=== PATIENT | female | born 1955 | race Asian ===

== ENCOUNTER 2017-01-17 09:59 | Observation (INO) | payer OTHER ==
[~2017-01-17] VITALS: Ht 160 cm; Wt 94.6 kg
[~2017-01-17 09:59] MED LIST: ASPI-1093 PO; ATOR20TA PO; CLON0.5T PO; CYAN500T8 PO; FERR-142 PO; HYDR-3424 PO; METF1000 PO; METO-50 PO
--- NOTE | 2017-01-17 10:07 | NUR ---
Taken to bed 4.
[2017-01-17 10:08] VITALS: BP 139/68
--- NOTE | 2017-01-17 10:10 | NUR ---
PATIENT PRESENTS TO ED WITH HX OF IBS, DM AND HTN, HIGH CHOLESTEROL, HAVING FREQUENT NORMAL BOWEL MOVEMENT, AND FEELING VERY TIRED AND WEAK, ON FLAGYL 250MG; DENIES N/V/D; SKIN IS PINK/WARM/DRY; AAOX4 WITH EVEN AND STEADY GAIT; LUNGS CLEAR BL; HR EVEN AND REGULAR; PT DENIES ANY FEVER, CP, SOB, OR COUGH AT THIS TIME; PATIENT STATES PAIN OF 0/10 AT THIS TIME; VSS; PATIENT POSITIONED FOR COMFORT; HOB ELEVATED; BEDRAILS UP X2; BED DOWN. ER MD MADE AWARE OF PT STATUS.
[2017-01-17] MEDS ORDERED: ASPIRIN 81 MG TAB.CHEW PO ONE ×2 (10:25→11:00)
[2017-01-17 10:47] LABS: HEMATOCRIT 39.8 % (36-48); HEMOGLOBIN 12.9 g/dL (12.0-16.0); MEAN CORPUSCULAR HEMOGLOBIN 29 pg (27-31); MEAN CORPUSCULAR HGB CONC 32 g/dL (33-37); MEAN CORPUSCULAR VOLUME 90 fL (80-94); PLATELET COUNT (AUTO) 284 K/uL (140-450); RED BLOOD CELL COUNT(AUTO) 4.41 MIL/uL (4.20-5.40); RED CELL DISTRIBUTION WIDTH 15.2 % (11.6-13.7); WHITE BLOOD COUNT (AUTO) 5.7 K/uL (4.8-10.8)
[2017-01-17 10:57] LABS: PHOSPHORUS 3.8 mg/dL (2.5-4.9)
[2017-01-17 11:02] LABS: INR 1.2 (0.8-1.2); PARTIAL THROMBOPLASTIN TIME 29.2 secs (22-35.6); PROTHROMBIN TIME 11.1 secs (10.8-13.4)
[2017-01-17 11:08] LABS: ALBUMIN 3.1 g/dL (3.4-5.0); ANION GAP 11.6 (8-16); CALCIUM 8.3 mg/dL (8.5-10.1); CARBON DIOXIDE 27.4 mmol/L (21-32); CREATININE 0.9 mg/dL (0.6-1.3); TOTAL BILIRUBIN 1.2 mg/dL (0.0-1.0); TOTAL PROTEIN, SERUM 5.6 g/dL (6.4-8.2)
[2017-01-17 11:11] LABS: BASOPHILS % (MANUAL) 1 % (0-2); EOSINOPHILS % (MANUAL) 2 % (0-4); LYMPHOCYTES % (MANUAL) 20 % (20-46); NEUTROPHILS % (MANUAL) 65 (43-65)
[2017-01-17 11:12] LABS: MONOCYTES % (MANUAL) 11 % (5-12)
--- NOTE | 2017-01-17 12:40 | NUR ---
Patient will be admitted to care of DR SINGH. Admited to TELE. Will go to room 113. Belongings list completed. Report to SIMON LUCERO.
[2017-01-17 12:55] VITALS: BP 137/68
--- NOTE | 2017-01-17 12:55 | NUR ---
ADMITTED 61/F DX CP; AAOX4, AMBULATORY WITH STEADY GAIT; VSS; DENIES CP, SOB, OR S/S ACUTE DISTRESS AT THIS TIME. HX IBS, PT DENIES DIARRHEA AT THIS TIME, FREQUENT SOFT STOOLS. ADMIT ORDERS ACKNOWLEDGED AND CARRIED OUT; ROUTINE/PLAN OF CARE DISCUSSED AND REVIEWED, PT VERBALIZES UNDERSTANDING AND COMPLIANCE. NO IV ACCESS AT THIS TIME. BELONGINGS CHECKED AND KEPT AT BEDSIDE. ORIENTED PT ROOM AND CALL LIGHT. SAFETY PRECAUTIONS MAINTAINED. ENCOURAGED PT TO CALL FOR ASSISTANCE NEEDED.
[2017-01-17] MEDS ORDERED: DEXTROSE 50% 50 ML SYR IVP PRN (13:00)
[2017-01-17] MEDS ORDERED: INSULIN LISPRO SLIDING SCALE 100 UNITS/ML VIAL SUBQ PRN (13:00)
[2017-01-17] MEDS: NITROGLYCERIN 2% 1 GM PKT TP SCH ×2 (14:46→21:16)
[2017-01-17] MEDS: MAG SULF 2000 MG/WATER PREMIX 100 ML IV SCH (15:30)
[2017-01-17 16:00] VITALS: BP 109/54
[2017-01-17] MEDS: BLOOD GLUCOSE MONITORING 1 DEV DEV FS SCH ×2 (16:30→21:58)
[2017-01-17] MEDS: ACETAMINOPHEN EXTRA STRENGTH 500 MG TAB PO PRN (17:18)
--- NOTE | 2017-01-17 18:55 | NUR ---
PT C/O INCREASING LEFT ARM PAIN, UNRELIEVED BY RELAXATION TECHNIQUES AND ICE PACK. WARM COMPRESS ALSO INEFFECTIVE. NOTIFIED DR SINGH, RECEIVED ORDERS TO ELEVATE AFFECTED ARM AND ADMINISTER ONE DOSE OF TYLENOL EXTRA STRENGTH AT THIS TIME. ORDERS CARRIED OUT AND EDUCATED PT. AT BEDSIDE.
[2017-01-17] MEDS ORDERED: ACETAMINOPHEN EXTRA STRENGTH 500 MG TAB PO SCH (18:58)
--- NOTE | 2017-01-17 19:15 | NUR ---
RECEIVED PATIENT AWAKE, ALERT AND ORIENTED. SKIN WARM AND DRY TO TOUCH, RESPIRATIONS EVEN AND UNLABORED, NO APPARENT PHYSICAL DISTRESS. DENIES PAIN AT THIS TIME. IV SITE INTACT AND PATENT, NO SIGNS OF INFILTRATION. ABDOMEN SOFT, NON-DISTENDED. SAFETY PRECAUTIONS MAINTAINED. CALL LIGHT WITHIN REACH. BED ON LOW POSITION, POSSESSIONS WITHIN REACH, WILL CONTINUE TO MONITOR.
--- NOTE | 2017-01-17 19:26 | NUR ---
PT VERBALIZES TOLERABLE LEVEL OF PAIN AT THIS TIME. ENDORSED PLAN OF CARE TO LINUX ENGINEER RN.
[2017-01-17 19:31] LABS: CREATINE KINASE MB 1.8 ng/mL (0-3.6)
[2017-01-17 20:00] VITALS: BP 115/53
[2017-01-17] MEDS: ENOXAPARIN 30 MG/0.3 ML SYR SUBQ SCH (20:00)
[2017-01-17] MEDS: FERROUS GLUCONATE 324 MG TAB PO SCH (21:00)
[2017-01-17] MEDS: clonazePAM 0.5 MG TAB PO SCH (21:12)
--- NOTE | 2017-01-17 21:15 | NUR ---
DUE MEDS ADMINISTERED AT THIS TIME AND TOLERATED WELL.
--- NOTE | 2017-01-17 21:15 | NUR ---
PATIENT ASKING ABOUT HER DIABETIC MEDICATION, MADE AWARE SHE IS ON ACCUCHECK AND INSULIN COVERAGE, STATED THAT SHE DOESNT TAKE INSULIN AND IS ONLY TAKING METFORMIN AT HOME AND REQUESTS IF SHE CAN TAKE THIS INSTEAD. CALLED NIGEL JUAREZ AND MADE AWARE OF PATIENT CONCERN. DR. SINGH SAID NO, [facility] MET[facility]MIN. EXPLAINED TO PATIENT AND VERBALIZES UNDERSTANDING.
[2017-01-17] MEDS: ATORVASTATIN 20 MG TAB PO SCH (21:16)
[2017-01-17] MEDS: METOPROLOL 50 MG TAB PO SCH (21:16)
[2017-01-18] VITALS: BP 137/75
[2017-01-18] MEDS: MAG SULF 2000 MG/WATER PREMIX 100 ML IV SCH (03:30)
[2017-01-18 04:00] VITALS: BP 148/90
--- NOTE | 2017-01-18 04:00 | NUR ---
V/S: 97.0,148/90,68,15,94% O2 SATURATION IN ROOM AIR. SLEEPING WELL, RESPONDS TO NAME. DENIES PAIN OR DISCOMFORT AT THIS TIME. SAFETY PRECAUTIONS IN PLACE, ENCOURAGED TO USE CALL LIGHT AND ASK FOR STAFF ASSISTANCE. BED ON LOW POSITION. WILL CONTINUE TO MONITOR.
[2017-01-18] MEDS: NITROGLYCERIN 2% 1 GM PKT TP SCH ×3 (05:47→20:52)
[2017-01-18] MEDS: ENOXAPARIN 30 MG/0.3 ML SYR SUBQ SCH ×2 (05:48→19:13)
[2017-01-18] MEDS: BLOOD GLUCOSE MONITORING 1 DEV DEV FS SCH ×4 (06:30→20:51)
[2017-01-18] MEDS ORDERED: PANTOPRAZOLE 40 MG TABEC PO SCH (06:30)
[2017-01-18 06:57] LABS: CHOL/HDL RATIO 3.1 (1-4.5); MAGNESIUM 2.2 mg/dL (1.8-2.4)
--- NOTE | 2017-01-18 07:20 | NUR ---
REPORT GIVEN TO DIANE MONTES AT BEDSIDE FOR CONTINUITY OF CARE.
--- NOTE | 2017-01-18 07:24 | NUR ---
RECEIVED REPORT FROM NIGHT SIMON MACDONALD. PT SLEEPING IN BED. AAOX4. NO S/S OF ACUTE DISTRESS. PT DENIES PAIN. IV SITE PATENT AND INTACT. CALL LIGHT WITHIN REACH. SAFETY MEASURES ENSURED. WILL CONTINUE TO MONITOR.
--- NOTE | 2017-01-18 08:23 | NUR ---
PATIENT HAS BEEN SCREENED AND CATEGORIZED MODERATE NUTRITION RISK. PATIENT WILL BE SEEN WITHIN 3-5 DAYS OF ADMISSION. 01/20/17-01/22/[address]
[2017-01-18 08:40] VITALS: BP 142/69
[2017-01-18] MEDS ORDERED: ASPIRIN 325 MG TAB PO SCH (09:00)
[2017-01-18] MEDS: METOPROLOL 50 MG TAB PO SCH ×2 (09:00→20:39)
[2017-01-18] MEDS ORDERED: LOSARTAN 50 MG TAB PO SCH (09:00)
[2017-01-18] MEDS ORDERED: CYANOCOBALAMIN 1,000 MCG TAB PO SCH (09:00)
[2017-01-18] MEDS: FERROUS GLUCONATE 324 MG TAB PO SCH ×2 (09:00→21:00)
[2017-01-18] MEDS ORDERED: HYDROCHLOROTHIAZIDE 25 MG TAB PO SCH (09:00)
--- NOTE | 2017-01-18 10:02 | NUR ---
PT'S MORNING MEDS HELD DUE TO LEXISCAN. PT RESTING IN BED. SON AT BEDSIDE. NO S/S OF ACUTE DISTRESS. PT DENIES PAIN. CALL LIGHT WITHIN REACH. SAFETY MEASURES ENSURED. WILL CONTINUE TO MONITOR.
--- NOTE | 2017-01-18 11:33 | NUR ---
PT TAKEN OFF UNIT FOR LEXISCAN. NO S/S OF ACUTE DISTRESS. PT REMAINS IN STABLE CONDITION.
[2017-01-18] MEDS ORDERED: REGADENOSON 0.4 MG/5 ML SYR IV ONE (12:30)
--- NOTE | 2017-01-18 13:48 | NUR ---
PT BACK ON UNIT. NO S/S OF ACUTE DISTRESS. PT DENIES PAIN. IV SITE PATENT AND INTACT. CALL LIGHT WITHIN REACH. SAFETY MEASURES ENSURED. WILL CONTINUE TO MONITOR.
[2017-01-18 16:00] VITALS: BP 125/72
--- NOTE | 2017-01-18 16:37 | NUR ---
PT RESTING IN BED. NO S/S OF ACUTE DISTRESS. PT DENIES PAIN. CALL LIGHT WITHIN REACH. SAFETY MEASURES ENSURED. WILL CONTINUE TO MONITOR.
[2017-01-18] MEDS: ACETAMINOPHEN EXTRA STRENGTH 500 MG TAB PO PRN (18:22)
--- NOTE | 2017-01-18 19:31 | NUR ---
ENDORSED PLAN OF CARE TO NIGHT RN. PT REMAINS IN STABLE CONDITION.
--- NOTE | 2017-01-18 19:45 | NUR ---
RECEIVED REPORT FROM DIANE MONTES. PATIENT IS ALERT AND AWAKE IN BED, WITH AND SON AT BEDSIDE. NO COMPLAINTS OF PAIN OR DISCOMFORT. VITAL SIGNS ARE STABLE. NO S/S OF SOB OR DISTRESS NOTED. THERE IS A #22 IN THE PATIENT'S LEFT HAND SALINE LOCK. SITE IS DRY AND INTACT. EXPLAINED PLAN OF CARE TO INCLUDE VITALS, MEDICATION ADMINISTRATION, AND DISCHARGE. PATIENT AND FAMILY VERBALIZED UNDERSTANDING. CALL LIGHT WITHIN REACH. CONTINUE TO MONITOR PATIENT.
[2017-01-18 20:00] VITALS: BP 134/60
[2017-01-18 20:03] VITALS: BP 129/73
[2017-01-18] MEDS: ATORVASTATIN 20 MG TAB PO SCH (20:39)
--- NOTE | 2017-01-18 20:39 | NUR ---
TOLERATED SCHEDULED MEDICATIONS WELL. NO SIGNS OF SOB OR DISCOMFORT NOTED.
[2017-01-18] MEDS: clonazePAM 0.5 MG TAB PO SCH (20:51)
--- NOTE | 2017-01-18 20:54 | NUR ---
DISCHARGE INSTRUCTIONS PROVIDED. PT VERBALIZED UNDERSTANDING AND SIGNED ALL FORMS. IV REMOVED WITH TIP INTACT. PATIENT ID BAND REMOVED. ESCORTED PATIENT OFF UNIT TO PRIVATE VEHICLE TO HOME.
== END 2017-01-18 20:55 | disposition home or self-care (01) ==
LOC: MED 09:59 → MTU 12:03 → INTOOBSV 12:03 → MTU 12:51
PROVIDERS: ADMIT Family Medicine; ATTEND Family Medicine
DX: R53.1 Weakness (principal); E11.9 Type 2 diabetes mellitus without complications; E44.1 Mild protein-calorie malnutrition; E78.5 Hyperlipidemia, unspecified; E83.42 Hypomagnesemia; I10 Essential (primary) hypertension; I25.10 Atherosclerotic heart disease of native coronary artery without angina pectoris; K58.0 Irritable bowel syndrome with diarrhea
CPT/HCPCS: 36415; 71010; 80053; 82550; 82553; 82948; 83735; 83880; 84100; 84484; 85025; 85610; 85730; 87081; 93005; 93017; 96365; 96366; 96372; 99285; A9500; A9502; G0378; J1650; J1815; J2785; J3475; J7030; Q0092

== ENCOUNTER 2017-01-25 08:56 | Outpatient (CLI) | payer OTHER | END 2017-01-25 18:23 | disposition home or self-care (01) | LOC: MLB 08:56 | PROVIDERS: ATTEND Internal Medicine Gastroenterology | DX: D64.9 Anemia, unspecified (principal); R10.9 Unspecified abdominal pain; K52.9 Noninfective gastroenteritis and colitis, unspecified | CPT/HCPCS: 36415 ==

== ENCOUNTER 2017-01-26 07:52 | Outpatient (CLI) | payer OTHER ==
[2017-01-26 08:17] LABS: BASOPHILS # (AUTO) 0.2 K/uL (0.00-0.22); BASOPHILS % (AUTO) 2.8 % (0.0-2.0); EOSINOPHILS # (AUTO) 0.1 K/uL (0-0.4); EOSINOPHILS % (AUTO) 2.6 % (0.0-4.0); HEMATOCRIT 40.1 % (36-48); HEMOGLOBIN 13.1 g/dL (12.0-16.0); LYMPHOCYTES # (AUTO) 1.2 K/uL (2.5-16.5); LYMPHOCYTES % (AUTO) 22.1 % (20.5-51.1); MEAN CORPUSCULAR HEMOGLOBIN 30 pg (27-31); MEAN CORPUSCULAR HGB CONC 33 g/dL (33-37); MEAN CORPUSCULAR VOLUME 90 fL (80-94); MONOCYTES # (AUTO) 0.4 K/uL (0.8-1.0); MONOCYTES % (AUTO) 6.7 % (1.7-9.3); NEUTROPHILS # (AUTO) 3.6 K/uL (1.8-7.7); NEUTROPHILS % (AUTO) 65.8 % (42.2-75.2); PLATELET COUNT (AUTO) 303 K/uL (140-450); RED BLOOD CELL COUNT(AUTO) 4.44 MIL/uL (4.20-5.40); WHITE BLOOD COUNT (AUTO) 5.5 K/uL (4.8-10.8)
[2017-01-26 08:49] LABS: ALBUMIN 3.4 g/dL (3.4-5.0); ANION GAP 10.6 (8-16); CARBON DIOXIDE 29.1 mmol/L (21-32); CHOL/HDL RATIO 3.5 (1-4.5); CREATININE 0.8 mg/dL (0.6-1.3); MAGNESIUM 1.2 mg/dL (1.8-2.4); PHOSPHORUS 4.7 mg/dL (2.5-4.9); POTASSIUM 4.7 mmol/L (3.5-5.1); TOTAL BILIRUBIN 1.4 mg/dL (0.0-1.0); TOTAL PROTEIN, SERUM 6.2 g/dL (6.4-8.2)
[2017-01-26 09:14] LABS: THYROID STIMULATING HORMONE 1.83 uIU/mL (0.34-3.76)
[2017-01-27 12:23] LABS: MICROALBUMIN/CREATININE RATIO 358.8 mg/g creat (0.0-30.0)
[2017-01-27 13:18] LABS: HEMOGLOBIN A1C 6.2 % (4.8-5.6)
== END 2017-01-26 20:02 | disposition home or self-care (01) ==
LOC: MLB 07:52
PROVIDERS: ATTEND Family Medicine
DX: R53.83 Other fatigue (principal); E83.42 Hypomagnesemia; E11.9 Type 2 diabetes mellitus without complications
CPT/HCPCS: 36415; 80053; 83036; 83735; 84100; 84443; 85025

== ENCOUNTER 2017-01-31 10:50 | Outpatient (CLI) | payer OTHER ==
[~2017-01-31 10:50] MED LIST changes: +ACTOS15 MG PO; +ACTOS30 MG PO; +APRESOLINE10 MG PO; -ASPI-1093 PO; -ATOR20TA PO; -CLON0.5T PO; +CLONAZEPAM0.5 M2 PO; +COZAAR100 MG PO; +COZAAR50 MG PO; -CYAN500T8 PO; +DEXILANT PO; +DEXLANSOPRAZOLE; +ECOTRIN81 MG PO; +EDARBYCLOR 40 M1 TAB PO; -FERR-142 PO; +GLUCOPHAGE1000 MG PO; +HCTZ PO; -HYDR-3424 PO; +HYDROCHLOROTHIAZIDE; +IRON324 M1 PO; +IRON325 MG PO; +KLONOPIN0.5 MG PO; +KLONOPIN1 MG PO; +LIPITOR20 MG PO; +LOPRESSOR50 MG PO; +LOSARTAN HCTZ PO; +LOSARTAN POTASS1 TA2 PO; +MECLIZINE25 M2 PO; -METF1000 PO; +METFORMIN HCL1000 MG PO; -METO-50 PO; +METOPROLOL25 MG PO; +NORVASC10 M1 PO; +NORVASC10 MG PO; +POTASSIUM20 MEQ PO; +ROBITUSSIN; +SIMVASTATIN10 M1 PO; +TOPROL XL25 MG PO; +TOPROL XL50 MG PO; +VITAMIN B12500 MC1 PO; +[UNRECOGNIZED DRUG - OTHER] PO
== END 2017-01-31 20:54 | disposition home or self-care (01) ==
LOC: MLB 10:50
PROVIDERS: ATTEND Family Medicine
DX: Z51.81 Encounter for therapeutic drug level monitoring (principal); E83.40 Disorders of magnesium metabolism, unspecified; Z79.899 Other long term (current) drug therapy

== ENCOUNTER 2017-02-08 10:19 | Outpatient (CLI) | payer OTHER ==
[~2017-02-08 10:19] MED LIST changes: -ACTOS15 MG PO; -ACTOS30 MG PO; -APRESOLINE10 MG PO; +ASPI-1093 PO; +ATOR20TA PO; +CLON0.5T PO; -CLONAZEPAM0.5 M2 PO; -COZAAR100 MG PO; -COZAAR50 MG PO; +CYAN500T8 PO; -DEXILANT PO; -DEXLANSOPRAZOLE; -ECOTRIN81 MG PO; -EDARBYCLOR 40 M1 TAB PO; +FERR-142 PO; -GLUCOPHAGE1000 MG PO; -HCTZ PO; +HYDR-3424 PO; -HYDROCHLOROTHIAZIDE; -IRON324 M1 PO; -IRON325 MG PO; -KLONOPIN0.5 MG PO; -KLONOPIN1 MG PO; -LIPITOR20 MG PO; -LOPRESSOR50 MG PO; -LOSARTAN HCTZ PO; -LOSARTAN POTASS1 TA2 PO; -MECLIZINE25 M2 PO; +METF1000 PO; -METFORMIN HCL1000 MG PO; +METO-50 PO; -METOPROLOL25 MG PO; -NORVASC10 M1 PO; -NORVASC10 MG PO; -POTASSIUM20 MEQ PO; -ROBITUSSIN; -SIMVASTATIN10 M1 PO; -TOPROL XL25 MG PO; -TOPROL XL50 MG PO; -VITAMIN B12500 MC1 PO; -[UNRECOGNIZED DRUG - OTHER] PO
== END 2017-02-08 21:40 | disposition home or self-care (01) ==
LOC: MLB 10:19
PROVIDERS: ATTEND Family Medicine
DX: Z51.81 Encounter for therapeutic drug level monitoring (principal); E83.42 Hypomagnesemia; Z79.899 Other long term (current) drug therapy
CPT/HCPCS: 36415; 83735

== ENCOUNTER 2017-02-13 16:20 | Outpatient (CLI) | payer OTHER ==
[2017-02-13 16:44] LABS: BASOPHILS # (AUTO) 0.1 K/uL (0.00-0.22); BASOPHILS % (AUTO) 2.3 % (0.0-2.0); EOSINOPHILS # (AUTO) 0.1 K/uL (0-0.4); HEMATOCRIT 39.6 % (36-48); HEMOGLOBIN 12.8 g/dL (12.0-16.0); LYMPHOCYTES # (AUTO) 1.1 K/uL (2.5-16.5); LYMPHOCYTES % (AUTO) 17.6 % (20.5-51.1); MEAN CORPUSCULAR HEMOGLOBIN 30 pg (27-31); MEAN CORPUSCULAR HGB CONC 32 g/dL (33-37); MEAN CORPUSCULAR VOLUME 92 fL (80-94); MONOCYTES # (AUTO) 0.8 K/uL (0.8-1.0); MONOCYTES % (AUTO) 11.9 % (1.7-9.3); NEUTROPHILS # (AUTO) 4.4 K/uL (1.8-7.7); NEUTROPHILS % (AUTO) 66.2 % (42.2-75.2); PLATELET COUNT (AUTO) 318 K/uL (140-450); RED BLOOD CELL COUNT(AUTO) 4.31 MIL/uL (4.20-5.40); RED CELL DISTRIBUTION WIDTH 15.8 % (11.6-13.7); WHITE BLOOD COUNT (AUTO) 6.5 K/uL (4.8-10.8)
[2017-02-13 17:26] LABS: ANION GAP 9.9 (8-16); CARBON DIOXIDE 28.6 mmol/L (21-32); CREATININE 0.9 mg/dL (0.6-1.3); POTASSIUM 4.5 mmol/L (3.5-5.1); TOTAL BILIRUBIN 1.7 mg/dL (0.0-1.0)
[2017-02-13 17:27] LABS: ALBUMIN 3.3 g/dL (3.4-5.0); TOTAL PROTEIN, SERUM 5.8 g/dL (6.4-8.2)
[2017-02-13 17:28] LABS: C-REACTIVE PROTEIN QUANT 0.2 mg/dL (0.0-0.9)
== END 2017-02-13 19:27 | disposition home or self-care (01) ==
LOC: MLB 16:20
PROVIDERS: ATTEND Family Medicine
DX: R53.1 Weakness (principal); R53.83 Other fatigue; R06.02 Shortness of breath; R60.0 Localized edema
CPT/HCPCS: 36415; 80053; 83880; 84443; 85025; 85379; 85651; 86140

== ENCOUNTER 2017-02-20 14:15 | Outpatient (CLI) | payer OTHER | END 2017-02-20 19:37 | disposition home or self-care (01) | LOC: MLB 14:15 | PROVIDERS: ATTEND Family Medicine | DX: Z51.81 Encounter for therapeutic drug level monitoring (principal); E83.42 Hypomagnesemia; Z79.899 Other long term (current) drug therapy | CPT/HCPCS: 36415; 83735 ==

== ENCOUNTER 2017-03-17 08:15 | Outpatient (CLI) | payer OTHER ==
[2017-03-17 08:34] LABS: HEMATOCRIT 39.6 % (36-48); HEMOGLOBIN 13.4 g/dL (12.0-16.0); MEAN CORPUSCULAR HEMOGLOBIN 30 pg (27-31); MEAN CORPUSCULAR HGB CONC 34 g/dL (33-37); MEAN CORPUSCULAR VOLUME 89 fL (80-94); PLATELET COUNT (AUTO) 279 K/uL (140-450); RED BLOOD CELL COUNT(AUTO) 4.44 MIL/uL (4.20-5.40); RED CELL DISTRIBUTION WIDTH 14.7 % (11.6-13.7); WHITE BLOOD COUNT (AUTO) 5.5 K/uL (4.8-10.8)
[2017-03-17 09:24] LABS: ALBUMIN 3.5 g/dL (3.4-5.0); CALCIUM 9.2 mg/dL (8.5-10.1); CARBON DIOXIDE 26.3 mmol/L (21-32); CREATININE 0.9 mg/dL (0.6-1.3); POTASSIUM 4.3 mmol/L (3.5-5.1); TOTAL BILIRUBIN 1.8 mg/dL (0.0-1.0); TOTAL PROTEIN, SERUM 6.6 g/dL (6.4-8.2)
[2017-03-17 09:35] LABS: BAND % (MANUAL) 3 % (0-8); EOSINOPHILS % (MANUAL) 2 % (0-4); LYMPHOCYTES % (MANUAL) 22 % (20-46); MONOCYTES % (MANUAL) 11 % (5-12); NEUTROPHILS % (MANUAL) 62 (43-65)
== END 2017-03-17 20:22 | disposition home or self-care (01) ==
LOC: MLB 08:15
PROVIDERS: ATTEND Family Medicine
DX: I50.9 Heart failure, unspecified (principal); G47.33 Obstructive sleep apnea (adult) (pediatric); E83.42 Hypomagnesemia
CPT/HCPCS: 36415; 80053; 83735; 83880; 85025

== ENCOUNTER 2017-03-31 07:54 | Outpatient (CLI) | payer OTHER ==
[2017-03-31 09:00] LABS: ALBUMIN 3.7 g/dL (3.4-5.0); ANION GAP 8.9 (8-16); BASOPHILS # (AUTO) 0.2 K/uL (0.00-0.22); CALCIUM 9.3 mg/dL (8.5-10.1); CARBON DIOXIDE 28.1 mmol/L (21-32); CREATININE 0.9 mg/dL (0.6-1.3); EOSINOPHILS # (AUTO) 0.2 K/uL (0-0.4); EOSINOPHILS % (AUTO) 4.8 % (0.0-4.0); HEMATOCRIT 40.1 % (36-48); HEMOGLOBIN 13.4 g/dL (12.0-16.0); LYMPHOCYTES # (AUTO) 1.1 K/uL (2.5-16.5); LYMPHOCYTES % (AUTO) 20.6 % (20.5-51.1); MEAN CORPUSCULAR HEMOGLOBIN 31 pg (27-31); MEAN CORPUSCULAR HGB CONC 34 g/dL (33-37); MEAN CORPUSCULAR VOLUME 91 fL (80-94); MONOCYTES # (AUTO) 0.6 K/uL (0.8-1.0); MONOCYTES % (AUTO) 11.9 % (1.7-9.3); NEUTROPHILS % (AUTO) 59.7 % (42.2-75.2); PLATELET COUNT (AUTO) 249 K/uL (140-450); RED CELL DISTRIBUTION WIDTH 16.3 % (11.6-13.7); TOTAL BILIRUBIN 3.6 mg/dL (0.0-1.0); TOTAL PROTEIN, SERUM 6.7 g/dL (6.4-8.2); WHITE BLOOD COUNT (AUTO) 5.2 K/uL (4.8-10.8)
[2017-03-31 09:08] LABS: MAGNESIUM 1.6 mg/dL (1.8-2.4); THYROID STIMULATING HORMONE 1.33 uIU/mL (0.34-3.76)
== END 2017-03-31 20:25 | disposition home or self-care (01) ==
LOC: MLB 07:54
PROVIDERS: ATTEND Family Medicine
DX: I27.2 Other secondary pulmonary hypertension (principal); E83.42 Hypomagnesemia
CPT/HCPCS: 36415; 80053; 83735; 83880; 84443; 85025

== ENCOUNTER 2017-04-04 00:55 | Emergency (ER) | payer OTHER ==
[~2017-04-04] VITALS: Ht 157.5 cm; Wt 89.8 kg
[2017-04-04 01:04] VITALS: BP 153/83
--- NOTE | 2017-04-04 01:35 | NUR ---
PATIENT LEFT WITHOUT BEING SEEN BY DR. JOHNSON. NO FURTHER CARE PROVIDED FOR PATIENT.
== END 2017-04-04 01:35 | disposition left against medical advice (07) ==
LOC: MED 00:55
DX: I10 Essential (primary) hypertension (principal); Z53.21 Procedure and treatment not carried out due to patient leaving prior to being seen by health care provider

== ENCOUNTER 2017-04-08 00:49 | Emergency (ER) | payer OTHER ==
[~2017-04-08] VITALS: Ht 157.5 cm; Wt 88.5 kg
--- NOTE | 2017-04-08 03:25 | NUR ---
PATIENT LEFT WITHOUT BEING SEEN BY DR. KILPATRICK. NO FURTHER CARE PROVIDED FOR PATIENT.
== END 2017-04-08 03:25 | disposition left against medical advice (07) ==
LOC: MED 00:49
DX: M54.5 Low back pain (principal); M54.9 Dorsalgia, unspecified; Z53.21 Procedure and treatment not carried out due to patient leaving prior to being seen by health care provider

== ENCOUNTER 2017-04-12 09:45 | Outpatient (CLI) | payer OTHER ==
[2017-04-12 10:27] LABS: ALBUMIN 3.7 g/dL (3.4-5.0); ANION GAP 9.4 (8-16); CALCIUM 9.8 mg/dL (8.5-10.1); CARBON DIOXIDE 28.6 mmol/L (21-32); CREATININE 0.8 mg/dL (0.6-1.3); TOTAL BILIRUBIN 2.6 mg/dL (0.0-1.0); TOTAL PROTEIN, SERUM 6.8 g/dL (6.4-8.2)
== END 2017-04-12 20:42 | disposition home or self-care (01) ==
LOC: MLB 09:45
PROVIDERS: ATTEND Family Medicine
CPT/HCPCS: 36415; 80053; 82248; 83735; 83880

== ENCOUNTER 2017-05-19 07:31 | Outpatient (CLI) | payer OTHER ==
[2017-05-19 07:51] LABS: HEMATOCRIT 37.5 % (36-48); MEAN CORPUSCULAR HEMOGLOBIN 31 pg (27-31); MEAN CORPUSCULAR HGB CONC 32 g/dL (33-37); MEAN CORPUSCULAR VOLUME 98 fL (80-94); PLATELET COUNT (AUTO) 312 K/uL (140-450); RED BLOOD CELL COUNT(AUTO) 3.82 MIL/uL (4.20-5.40); RED CELL DISTRIBUTION WIDTH 16.9 % (11.6-13.7); WHITE BLOOD COUNT (AUTO) 5.9 K/uL (4.8-10.8)
[2017-05-19 08:43] LABS: ALBUMIN 3.5 g/dL (3.4-5.0); ANION GAP 9.7 (8-16); CALCIUM 10.7 mg/dL (8.5-10.1); CARBON DIOXIDE 28.2 mmol/L (21-32); CREATININE 0.8 mg/dL (0.6-1.3); POTASSIUM 3.9 mmol/L (3.5-5.1); TOTAL BILIRUBIN 3.1 mg/dL (0.0-1.0); TOTAL PROTEIN, SERUM 6.5 g/dL (6.4-8.2)
[2017-05-19 09:04] LABS: BAND % (MANUAL) 4 % (0-8); EOSINOPHILS % (MANUAL) 2 % (0-4); LYMPHOCYTES % (MANUAL) 12 % (20-46); MONOCYTES % (MANUAL) 8 % (5-12); NEUTROPHILS % (MANUAL) 74 (43-65)
[2017-05-19 09:26] LABS: CHOL/HDL RATIO 2.9 (1-4.5); MAGNESIUM 1.6 mg/dL (1.8-2.4); THYROID STIMULATING HORMONE 2.58 uIU/mL (0.34-3.74)
== END 2017-05-19 20:43 | disposition home or self-care (01) ==
LOC: MLB 07:31
PROVIDERS: ATTEND Family Medicine
DX: E11.9 Type 2 diabetes mellitus without complications (principal); I27.2 Other secondary pulmonary hypertension; E83.42 Hypomagnesemia
CPT/HCPCS: 36415; 80053; 83036; 83735; 83880; 84443; 85025

== ENCOUNTER 2017-06-24 08:28 | Outpatient (CLI) | payer OTHER ==
[2017-06-24 09:32] LABS: ALBUMIN 3.5 g/dL (3.4-5.0); ANION GAP 10.4 (8-16); BILIRUBIN,DIRECT 0.3 mg/dL (0.0-0.3); CARBON DIOXIDE 25.8 mmol/L (21-32); CREATININE 0.8 mg/dL (0.6-1.3); POTASSIUM 4.2 mmol/L (3.5-5.1); TOTAL BILIRUBIN 2.7 mg/dL (0.0-1.0)
[2017-06-25] MEDS ORDERED: AMBR5TAB PO (17:32)
[2017-06-25] MEDS ORDERED: [UNRECOGNIZED DRUG - CODE] PO (17:32)
[2017-06-25] MEDS ORDERED: METO25TA PO (17:46)
[2017-06-25] MEDS ORDERED: VITD1000 PO (17:47)
[2017-06-25] MEDS ORDERED: MAGN400T40 PO ×3 (17:49→17:51)
[2017-06-25] MEDS ORDERED: VIT1TABL33 PO (17:55)
== END 2017-06-24 20:09 | disposition home or self-care (01) ==
LOC: MLB 08:28
PROVIDERS: ATTEND Family Medicine
DX: R79.89 Other specified abnormal findings of blood chemistry (principal)
CPT/HCPCS: 36415; 80053; 82248; 82977

== ENCOUNTER 2017-06-25 13:56 | Inpatient (IN) | payer OTHER ==
[~2017-06-25] VITALS: Ht 157.5 cm; Wt 84.8 kg
[2017-06-25 14:13] VITALS: BP 154/79
--- NOTE | 2017-06-25 14:18 | NUR ---
Patient ambulated to bed 05.
--- NOTE | 2017-06-25 14:29 | NUR ---
RT at bedside for ABG.
--- NOTE | 2017-06-25 14:37 | NUR ---
XRAY at bedside.
--- NOTE | 2017-06-25 14:40 | NUR ---
PATIENT TO ED C/O HEAVINESS ALL OVER CHEST. PT STATES, "IT FEELS LIKE A HEAVINESS." PATIENT ALSO STATES OF H/O OF IBS AND PULMONARY HYPERTENSION. THE PAT[place] [facility] [place] ABD PA[place] AND GALLSTONES. PATIENT STATES 07/25. PATIENT AAOX4, RESPIRATIONS SLIGHTLY LABORED AND DIMINISHED IN THE BILATERAL LOWER LOBES. MILD 1+ PITTING EDEMA ON THE BILATERAL LOWER EXTREMITIES. CAP REFILL IMMEDIATE. BED REPOSITIONED FOR COMFORT AND PUT IN THE LOWEST POSITION. ER MD DR. SAHU NOTIFIED. WILL CONTINUE TO MONITOR.
[2017-06-25 15:23] LABS: ANION GAP 13.1 (8-16); CARBON DIOXIDE 26.1 mmol/L (21-32); CREATININE 0.8 mg/dL (0.6-1.3); HEMATOCRIT 37.9 % (36-48); HEMOGLOBIN 11.8 g/dL (12.0-16.0); MEAN CORPUSCULAR HEMOGLOBIN 31 pg (27-31); MEAN CORPUSCULAR HGB CONC 31 g/dL (33-37); MEAN CORPUSCULAR VOLUME 99 fL (80-94); PLATELET COUNT (AUTO) 308 K/uL (140-450); POTASSIUM 4.2 mmol/L (3.5-5.1); RED BLOOD CELL COUNT(AUTO) 3.81 MIL/uL (4.20-5.40); RED CELL DISTRIBUTION WIDTH 14.2 % (11.6-13.7); WHITE BLOOD COUNT (AUTO) 5.7 K/uL (4.8-10.8)
[2017-06-25 15:29] LABS: ALBUMIN 3.6 g/dL (3.4-5.0); PROTHROMBIN TIME 11.3 secs (10.8-13.4); TOTAL BILIRUBIN 3.1 mg/dL (0.0-1.0)
[2017-06-25 15:38] LABS: EOSINOPHILS % (MANUAL) 7 % (0-4); LYMPHOCYTES % (MANUAL) 8 % (20-46); MONOCYTES % (MANUAL) 7 % (5-12)
[2017-06-25] MEDS ORDERED: FUROSEMIDE 40 MG/4 ML VIAL IVP ONE (16:25)
[2017-06-25] MEDS ORDERED: ONDANSETRON 4 MG/2 ML VIAL IM/IVP PRN (16:30)
[2017-06-25] MEDS ORDERED: DOCUSATE SODIUM 100 MG GELCAP PO PRN (16:30)
[2017-06-25] MEDS ORDERED: ACETAMINOPHEN 325 MG TAB PO PRN (16:30)
[2017-06-25] MEDS ORDERED: LORazepam 0.5 MG TAB PO PRN (16:30)
[2017-06-25] MEDS ORDERED: MORPHINE SULFATE 2 MG/ML SYR IVP PRN (16:30)
[2017-06-25] MEDS ORDERED: HYDROcodone/APAP 7.5/325 MG 1 TAB PO PRN (16:30)
--- NOTE | 2017-06-25 16:50 | NUR ---
REPORT GIVEN TO ETHAN MONTES. PATIENT WILL BE ADMITTED UNDER DR. SALAZAR. WILL GO TO TELEMETRY 113. PATIENT BELONGINGS LIST COMPLETED. SPOKE WITH RESIDENT AT BEDSIDE, ADVISED PATIENT NEEDS LARGER BORE IV FOR CT WITH CONTRAST. ADVISED ETHAN MONTES OF CT WITH CONTRAST ORDER.
--- NOTE | 2017-06-25 16:56 | NUR ---
RECEIVED PT REPORT VIA PHONE FROM ER NURSE FLORESITA. INFORMED THAT PT WILL GET CT SCAN FIRST BEFORE ADMISSION TO [facility]. WILL GET PT ROOM READY AND AWAIT FOR PT ARRIVAL ON UNIT.
[2017-06-25 17:08] LABS: APPEARANCE,URINE CLEAR (CLEAR); BILIRUBIN,URINE NEGATIVE (NEGATIVE); BLOOD, URINE NEGATIVE (NEGATIVE); COLOR,URINE YELLOW (YELLOW); LEUKOCYTE ESTERASE ,URINE NEGATIVE (NEGATIVE); NITRITE, URINE NEGATIVE (NEGATIVE); UGLUCOSE NEGATIVE (NEGATIVE)
[2017-06-25 17:20] LABS: BARBITURATE, URINE NEG. ng/ml (NEG <=200); BENZODIAZEPINE, URINE NEG. ng/mL (NEG <=200); CANNABINOID, URINE NEG. ng/mL (NEG <=50); COCAINE, URINE NEG. ng/mL (NEG <=300); OPIATE, URINE NEG. ng/mL (NEG <=2000); PHENCYCLIDINE SCREEN,URINE NEG. ng/mL (NEG <=25)
[2017-06-25 17:22] LABS: CHOL/HDL RATIO 2.6 (1-4.5); FREE T4 (FREE THYROXINE) 1.34 ng/dL (0.76-1.46); MAGNESIUM 1.6 mg/dL (1.8-2.4); THYROID STIMULATING HORMONE 1.35 uIU/mL (0.34-3.74)
--- NOTE | 2017-06-25 17:30 | NUR ---
PT ARRIVED TO UNIT VIA GURNEY ACCOMPANIED BY RN, CORPORATE MANAGER, AND FAMILY. PT AMBULATED TO BED WITH ASSIST. PT IS AWAKE AND ORIENTED. INTRODUCED SELF AND UPDATED BOARD. VS: BP 134/78, HR 85, TEMP 96.5 F, O2 SAT 99% WITH O2 DELIVERY VIA NON-REBREATHER MASK AT 15L/MIN. OBTAINED MRSA OF NARES SCREEN. PT PUT ON TELE MONITOR. ASSISTED PT TO BSC. PT INFORMED DIET TO CONSIST OF NO BEEF OR PORK AND LACTOSE INTOLERANT. INFORMED DR OF DIET AND CALLED [facility] FOR DINNER TRAY.
[2017-06-25] MEDS ORDERED: [UNRECOGNIZED DRUG - CODE] PO (17:32)
[2017-06-25] MEDS ORDERED: AMBR5TAB PO (17:32)
--- NOTE | 2017-06-25 17:33 | NUR ---
PATIENT TRANSFERRED VIA GURMAG[facility]OLIA ACCOMPANIED BY SIMON PRINCE AND SIMON CANAS AND EMT ELIZABETH TO [facility] AT THIS TIME.
[2017-06-25 17:38] LABS: PHOSPHORUS 0.5 mg/dL (2.5-4.9)
[2017-06-25] MEDS ORDERED: METO25TA PO (17:46)
[2017-06-25] MEDS ORDERED: VITD1000 PO (17:47)
[2017-06-25] MEDS ORDERED: MAGN400T40 PO ×3 (17:49→17:51)
[2017-06-25] MEDS ORDERED: VIT1TABL33 PO (17:55)
[2017-06-25] MEDS ORDERED: MAG SULF 2000 MG/WATER PREMIX 50 ML IV SCH (18:00)
[2017-06-25 18:15] VITALS: BP 134/78
[2017-06-25] MEDS ORDERED: SODIUM PHOS / POTASSIUM PHOS 1 PKT PDR PO SCH (18:50)
[2017-06-25] MEDS: metFORMIN 500 MG TAB PO SCH (19:10)
--- NOTE | 2017-06-25 19:10 | NUR ---
ENDORSED PT TO CLOSING SUPERVISOR NURSE ELIZABETH AT BEDSIDE FOR CONTINUITY OF CARE. PT IN STABLE CONDITION.
[2017-06-25] MEDS: ALBUTEROL SULFATE/IPRATROPIU 3 ML SOL IH PRN ×2 (19:53→23:51)
[2017-06-25 20:00] VITALS: BP 128/54
[2017-06-25] MEDS: SODIUM PHOS / POTASSIUM PHOS 1 PKT PDR PO SCH (21:12)
[2017-06-25] MEDS: ATORVASTATIN 20 MG TAB PO SCH (21:14)
[2017-06-25] MEDS: clonazePAM 0.5 MG TAB PO SCH (21:14)
--- NOTE | 2017-06-25 21:20 | NUR ---
ASSISTED TO BEDSIDE COMMODE, VOIDED FREELY WITH 350ML CLEAR YELLOW URINE, ASSISTED BACK TO BED, SOB ON EXERTION NOTED, HOB ON FOWLERS POSITION, DUE MEDS GIVEN WITH EDUCATION PROVIDED, MAG RIDER IVPB STARTED, ENCOURAGE TO USE CALL LIGHT FOR ASSISTANCE, ALL NEEDS ATTENDED.
--- NOTE | 2017-06-25 23:00 | NUR ---
PT BACK FROM FROM CT ANGIOGRAM, IV LINE INFILTRATED FROM CONTRAST ADMINISTRATION, WILL RESTART A NEW IV LINE TO CONTINUE MAG RIDER, PT ASSISTED TO BEDSIDE COMMODE AND VOIDED FREELY, ORAL CARE DONE INDEPENDENTLY, SOB ON EXERTION, CONTINUE ON O2 AT 4L/NC, MONITORED CLOSELY, IN THE ROOM.
[2017-06-26] VITALS: BP 133/73
--- NOTE | 2017-06-26 | NUR ---
RT ZARINA MADE AWARE OF PT HAVING SOB, BREATHING TX GIVEN PRN, PT VERBALIZED FEELING BETTER, MAG-RIDER IVPB ON-GOING, CONTINUE TO MONITOR CLOSELY.
[2017-06-26 04:05] VITALS: BP 133/83
--- NOTE | 2017-06-26 04:18 | NUR ---
PT TACHYPNEIC WITH RR OF 26, SLIGHT SOB NOTED, SAT-91-92%, PAGED RT AND SPOKE TO EMMIE FOR BREATHING TX, KEEP HOB ELEVATED, MONITORED CLOSELY.
[2017-06-26] MEDS: guaiFENesin DM 200/20 MG-10 ML 10 ML UDC PO PRN ×2 (04:56→16:21)
--- NOTE | 2017-06-26 05:00 | NUR ---
PER EMMIE RT, PT AND REFUSED BREATHING TX, THEY JUST WANT SOMETHING FOR HER COUGH, PAGED DR PALOMARES WITH NEW ORDER, MEDICATED WITH ROBITUSSIN PRN ORDERED, CONTINUE TO MONITOR CLOSELY.
[2017-06-26 06:10] LABS: BASOPHILS # (AUTO) 0.2 K/uL (0.00-0.22); BASOPHILS % (AUTO) 2.5 % (0.0-2.0); EOSINOPHILS # (AUTO) 0.3 K/uL (0-0.4); EOSINOPHILS % (AUTO) 4.7 % (0.0-4.0); HEMATOCRIT 34.7 % (36-48); HEMOGLOBIN 10.9 g/dL (12.0-16.0); LYMPHOCYTES # (AUTO) 0.6 K/uL (2.5-16.5); LYMPHOCYTES % (AUTO) 10.4 % (20.5-51.1); MEAN CORPUSCULAR HEMOGLOBIN 31 pg (27-31); MEAN CORPUSCULAR HGB CONC 32 g/dL (33-37); MEAN CORPUSCULAR VOLUME 98 fL (80-94); MONOCYTES # (AUTO) 0.6 K/uL (0.8-1.0); MONOCYTES % (AUTO) 10.5 % (1.7-9.3); NEUTROPHILS # (AUTO) 4.4 K/uL (1.8-7.7); NEUTROPHILS % (AUTO) 71.9 % (42.2-75.2); PLATELET COUNT (AUTO) 307 K/uL (140-450); RED BLOOD CELL COUNT(AUTO) 3.55 MIL/uL (4.20-5.40); RED CELL DISTRIBUTION WIDTH 13.9 % (11.6-13.7); WHITE BLOOD COUNT (AUTO) 6.1 K/uL (4.8-10.8)
[2017-06-26 06:28] LABS: ANION GAP 11.6 (8-16); CARBON DIOXIDE 26.2 mmol/L (21-32); CREATININE 0.8 mg/dL (0.6-1.3); POTASSIUM 3.8 mmol/L (3.5-5.1)
[2017-06-26 06:31] LABS: MAGNESIUM 2.1 mg/dL (1.8-2.4)
[2017-06-26 06:32] LABS: PHOSPHORUS 0.5 mg/dL (2.5-4.9)
[2017-06-26] MEDS ORDERED: SODIUM PHOS / POTASSIUM PHOS 1 PKT PDR PO SCH (06:40)
[2017-06-26] MEDS: ALBUTEROL SULFATE/IPRATROPIU 3 ML SOL IH SCH ×3 (07:07→18:00)
--- NOTE | 2017-06-26 07:10 | NUR ---
PT AWAKE, NO SIGNS OF DISTRESS, REPORT GIVEN TO SIMON QUACH FOR CONTINUITY OF CARE.
--- NOTE | 2017-06-26 07:15 | NUR ---
RECEIVED PATIENT AT BEDSIDE FROM NIGHT NURSE. PATIENT IS AAOX4 AND SHOWS NO S/S OF ACUTE DISTRESS ON O2 @ 4L VIA NC. PATIENT SKIN IS INTACT. PATIENT IV NOTED ON THE L H SL. ON TELE MONITOR. PATIENT DENIES PAIN. PATIENT BLE WITH +1 PITTING EDEMA. PATIENT STATED " THEY (FEET) ARE IMPROVING AND LOOK BETTER". PATIENT WAS EXPLAINED POC FOR TODAY AND VERBALIZED UNDERSTANDING. PATIENT IS AWARE TO USE CALL LIGHT WHEN ASSISTANCE IS NEEDED. THE BED IS IN LOW POSITION AND CALL LIGHT WITHIN REACH. WILL CONTINUE TO MONITOR.
[2017-06-26 08:00] VITALS: BP 142/74
[2017-06-26] MEDS: metFORMIN 500 MG TAB PO SCH ×2 (08:00→16:18)
[2017-06-26] MEDS ORDERED: FUROSEMIDE 20 MG TAB PO SCH (09:00)
[2017-06-26] MEDS ORDERED: AMBRISENTAN 5 MG PO SCH (09:00)
--- NOTE | 2017-06-26 09:14 | NUR ---
PATIENT HAS BEEN SCREENED AND CATEGORIZED MODERATE NUTRITION RISK. PATIENT WILL BE SEEN WITHIN 3-5 DAYS OF ADMISSION. 06/28/17-06/30/[address]
[2017-06-26] MEDS: FUROSEMIDE 20 MG/2 ML VIAL IVP SCH ×2 (09:23→21:25)
--- NOTE | 2017-06-26 09:23 | NUR ---
ADMINISTERED SCHEDULED MEDICATIONS. PATIENT TOLERATED ACTIVITY WELL. PATIENT IS SITTING AT BEDSIDE EATING BREAKFAST. DAUGHTER AT BEDSIDE. PATIENT SHOWS NO S/S OF ACUTE DISTRESS ON O2 @ 4L VIA NC. PATIENT DENIES PAIN.
[2017-06-26] MEDS: LETAIRIS 5 MG PO SCH (09:24)
[2017-06-26] MEDS: SODIUM PHOS / POTASSIUM PHOS 1 PKT PDR PO SCH ×2 (09:24→21:29)
[2017-06-26] MEDS: LISINOPRIL 5 MG TAB PO SCH (09:24)
[2017-06-26] MEDS: CHOLECALCIFEROL 1,000 IU TAB PO SCH (09:24)
--- NOTE | 2017-06-26 10:30 | NUR ---
PATIENT L HAND STILL SWOLLEN AFTER APPLYING WARM COMPRESS PATIENT AND DAUGHTER REQUEST TO HAVE DR. RICCI SEE PATIENT. WILL NOTIFY
[2017-06-26 12:00] VITALS: BP 114/75
--- NOTE | 2017-06-26 12:15 | NUR ---
PATIENT BSC WAS EMPTIED 400 CC WITH CLEAR YELLOW URINE. PATIENT IN BED RESTING NOW AND SHOWS NO S/S OF ACUTE DISTRESS.
--- NOTE | 2017-06-26 13:26 | NUR ---
PT DID NOT WANT BREATHING TX AT THIS TIME. PT STATES SHE FEELS JITTERY AND HER HEART IS RACING, PT NOT SOB AND NOT IN RESPIRATORY DISTRESS. PT STATES NURSE IS AWARE OF PT STATUS.
[2017-06-26] MEDS ORDERED: DEXTROSE 50% 50 ML SYR IVP PRN (13:55)
[2017-06-26] MEDS ORDERED: INSULIN LISPRO SLIDING SCALE 100 UNITS/ML VIAL SUBQ PRN (13:55)
--- NOTE | 2017-06-26 15:40 | NUR ---
PT LIVES AT HOME WITH HER EXTENDED FAMILY. HAS O2 AT HOME. PT IS INDEPENDENT IN ADLS. HAS PCP AND IS ABLE TO OBTAIN MEDICATIONS.
[2017-06-26 16:00] VITALS: BP 110/44
--- NOTE | 2017-06-26 16:00 | NUR ---
PATIENT RESPIRATIONS 26 SHALLOW AND LABORED. PATIENT HAD REFUSED BREATHING TX BECAUSE OF FEELING JITTERY AFTERWARDS. PATIENT ENCOURAGED TO HAVE BREATHING TX. FAMILY SUGGESTED TO GIVE XOPENEX LEVALBUTEROL INSTEAD. NOTIFIED DR RICCI. TO ORDERED NEW MEDICATION.
[2017-06-26] MEDS: BLOOD GLUCOSE MONITORING 1 DEV DEV FS SCH ×2 (16:18→21:29)
--- NOTE | 2017-06-26 16:29 | NUR ---
PATIENT C/O NON PRODUCTIVE COUGH AND HEADACHE 12/23. ADMINISTERED ROBITUSSIN AND TYLENOL 650 MG PO. WILL REASSESS IN ONE HOUR. PATIENT NEEDS MET AT THIS TIME. BED IS LOWERED WITH CALL LIGHT WITHIN REACH.
--- NOTE | 2017-06-26 16:55 | NUR ---
PATIENT BEING SEE BY DR DE LEON. PATIENT ASKED IF SHE WILL BE GOING HOME WITH LASIX. STATES SHE WILL BE GOING HOME WITH LASIX 40 MG PO DAILY AND F/U WITH HIM IN ONE MONTH. PATIENT VERBALIZED UNDERSTANDING. FAMILY AT BEDSIDE. WILL CONTINUE TO MONITOR
--- NOTE | 2017-06-26 17:30 | NUR ---
PATIENT HAS FAMILY AT BEDSIDE AND DENIES PAIN AND SOB. PATIENT SHOWS NO S/S OF ACUTE DISTRESS ON O2 @ 4L NC. THE BED IS LOWERED WITH CALL LIGHT WITHIN REACH. WILL CONTINUE TO MONITOR.
--- NOTE | 2017-06-26 18:45 | NUR ---
PATIENT REFUSED TORREY RESTREPO, STATES SHE FEELS JITTERY AND SAID SHE WILL CALL IF SHE NEEDS TREATMENT
--- NOTE | 2017-06-26 18:45 | NUR ---
PER DR SERRA PATIENT OKAY TO NOT HAVE BREATHING TX. MAY ASK FOR IT IF NEEDED. PATIENT DENIES PAIN AND SOB. WILL CONTINUE TO MONITOR.
--- NOTE | 2017-06-26 19:15 | NUR ---
PATIENT IS SITTING AT SIDE OF BED WITH AT BEDSIDE. PATIENT DENIES SOB AND PAIN. PATIENT SHOWS NO S/S OF ACUTE DISTRESS ON O2 @ 4L NC WITH HUMIDIFIER. PATIENT REPORT GIVEN AT BEDSIDE TO NIGHT NURSE. PATIENT ENDORSED IN STABLE CONDITION.
--- NOTE | 2017-06-26 19:16 | NUR ---
RECEIVED REPORT FROM DAY NURSE, PT IN STABLE CONDITION, NO S/ OF DISTRESS NOTED. PT IS AAOX4, PT IS ON 4L O2 VIA NC. RESPIRATIONS ARE EVEN AND UNLABORED. BOWEL SOUNDS PRESENT IN ALL FOUR QUADRANTS. SKIN IS IN TACT. IV TO R HAND 22 G, PATENT AND INTACT. INITIAL ASSESSMENT COMPLETED, PLAN OF CARE DISCUSSED WITH PT AND AT BEDSIDE. VERBALIZED UNDERSTANDING. ALL SAFETY PRECAUTIONS MET, CALL LIGHT WITHIN REACH WILL CONTINUE TO MONITOR.
[2017-06-26 20:00] VITALS: BP 117/58
--- NOTE | 2017-06-26 21:25 | NUR ---
ALL DUE MEDICATIONS GIVEN, PT TOLERATED WELL. PTS BS 120, NO COVERAGE NEEDED. PTS AT THE BEDSIDE. ALL SAFETY PRECAUTIONS MET, CALL LIGHT WITHIN REACH, WILL CONTINUE TO MONITOR.
[2017-06-26] MEDS: ATORVASTATIN 20 MG TAB PO SCH (21:28)
[2017-06-26] MEDS: clonazePAM 0.5 MG TAB PO SCH (21:28)
--- NOTE | 2017-06-26 23:00 | NUR ---
PT RESTING IN BED COMFORTABLY WITH AT THE BEDSIDE. NO S/S OF DISTRESS NOTED. ALL SAFETY PRECAUTIONS MET, CALL LIGHT WITHIN REACH, WILL CONTINUE TO MONITOR.
[2017-06-27] VITALS: BP 129/54
--- NOTE | 2017-06-27 00:15 | NUR ---
PT V/S STABLE, RESTING BED WITH NO S/S OF DISTRESS NOTED. SLEEPING AT THE BEDSIDE IN LOUNGE CHAIR. ALL SAFETY PRECAUTIONS MET, CALL LIGHT WITHIN IN REACH, WILL CONTINUE TO MONITOR.
--- NOTE | 2017-06-27 02:30 | NUR ---
PT RESTING IN BED COMFORTABLY NO S/S OF DISTRESS NOTED. AT BEDSIDE SLEEPING IN LOUNGE CHAIR. CALL LIGHT WITHIN REACH, ALL SAFETY PRECAUTIONS MET.
[2017-06-27 04:00] VITALS: BP 134/58
--- NOTE | 2017-06-27 04:25 | NUR ---
PTS V/S STABLE. ASSISTED PT TO GET UP AND USE COMMODE. ASSISTED PT BACK TO BED WITH PILLOWS IN PLACE. PT REQUESTED HEATING PAD TO APPLY TO RIGHT UPPER BACK. ALL SAFETY PRECAUTIONS MET, CALL LIGHT WITHIN REACH, WILL CONTINUE TO MONITOR.
[2017-06-27] MEDS: ALBUTEROL SULFATE/IPRATROPIU 3 ML SOL IH PRN (04:40)
--- NOTE | 2017-06-27 06:05 | NUR ---
PT RESTING IN BED, PULLED PT FURTHER UP IN BED FOR COMFORT. NO S/S OF DISTRESS NOTED. PT STATES HER DAUGHTER WILL BE COMING THIS MORNING TO VISIT. ALL SAFETY PRECAUTIONS MET, CALL LIGHT IN REACH
[2017-06-27] MEDS: BLOOD GLUCOSE MONITORING 1 DEV DEV FS SCH ×3 (06:18→16:30)
[2017-06-27 06:41] LABS: T4 (THYROXINE) 10.3 ug/dL (4.5-12.0)
[2017-06-27 06:58] LABS: BASOPHILS # (AUTO) 0.1 K/uL (0.00-0.22); BASOPHILS % (AUTO) 2.5 % (0.0-2.0); EOSINOPHILS # (AUTO) 0.8 K/uL (0-0.4); EOSINOPHILS % (AUTO) 13.5 % (0.0-4.0); HEMATOCRIT 34.8 % (36-48); HEMOGLOBIN 11.2 g/dL (12.0-16.0); LYMPHOCYTES # (AUTO) 0.7 K/uL (2.5-16.5); LYMPHOCYTES % (AUTO) 12.3 % (20.5-51.1); MEAN CORPUSCULAR HEMOGLOBIN 31 pg (27-31); MEAN CORPUSCULAR HGB CONC 32 g/dL (33-37); MEAN CORPUSCULAR VOLUME 98 fL (80-94); MONOCYTES # (AUTO) 0.6 K/uL (0.8-1.0); MONOCYTES % (AUTO) 9.9 % (1.7-9.3); NEUTROPHILS # (AUTO) 3.5 K/uL (1.8-7.7); NEUTROPHILS % (AUTO) 61.8 % (42.2-75.2); PLATELET COUNT (AUTO) 282 K/uL (140-450); RED BLOOD CELL COUNT(AUTO) 3.57 MIL/uL (4.20-5.40); RED CELL DISTRIBUTION WIDTH 14.6 % (11.6-13.7); WHITE BLOOD COUNT (AUTO) 5.7 K/uL (4.8-10.8)
[2017-06-27] MEDS: ALBUTEROL SULFATE/IPRATROPIU 3 ML SOL IH SCH ×2 (07:00→12:55)
[2017-06-27 07:01] LABS: MAGNESIUM 1.5 mg/dL (1.8-2.4); PHOSPHORUS 1.1 mg/dL (2.5-4.9)
[2017-06-27 07:03] LABS: ANION GAP 10.3 (8-16); CREATININE 0.8 mg/dL (0.6-1.3); POTASSIUM 3.3 mmol/L (3.5-5.1)
--- NOTE | 2017-06-27 07:21 | NUR ---
ENDORSED PLAN OF CARE TO DAY NURSE. PT IN STABLE CONDITION, NO S/S OF DISTRESS NOTED. CALL LIGHT WITHIN REACH
--- NOTE | 2017-06-27 07:25 | NUR ---
RECEIVED PATIENT AT BEDSIDE FROM NIGHT NURSE. PATIENT IS AAOX4 AND SHOWS NO S/S OF ACUTE DISTRESS ON O2 @ 4L VIA NC. PATIENT SKIN IS INTACT. PATIENT IV NOTED ON THE L H SL. ON TELE MONITOR. PATIENT DENIES PAIN. PATIENT BLE WITH IMPROVED EDEMA NO PITTING. PATIENT WAS EXPLAINED POC FOR TODAY AND VERBALIZED UNDERSTANDING. PATIENT IS AWARE TO USE CALL LIGHT WHEN ASSISTANCE IS NEEDED. THE BED IS IN LOW POSITION AND CALL LIGHT WITHIN REACH. WILL CONTINUE TO MONITOR.
--- NOTE | 2017-06-27 07:34 | NUR ---
PT STABLE REFUSE BREATHING TX BECAUSE SHE SAID HER HEART RATE INCREASES, NO RESP DISTRESS
[2017-06-27 08:00] VITALS: BP 139/61
[2017-06-27] MEDS: metFORMIN 500 MG TAB PO SCH (08:00)
--- NOTE | 2017-06-27 08:00 | NUR ---
SPOKE WITH DR RICCI REGARDING PATIENT POTASSIUM OF 3.3 AND MAGNESIUM OF 1.5. TO PL[address] IN ORDERS.
[2017-06-27] MEDS ORDERED: MAG SULF 2000 MG/WATER PREMIX 50 ML IV SCH (09:00)
[2017-06-27] MEDS ORDERED: SODIUM PHOS / POTASSIUM PHOS 1 PKT PDR PO SCH (09:00)
[2017-06-27] MEDS: LISINOPRIL 5 MG TAB PO SCH (09:24)
[2017-06-27] MEDS: CHOLECALCIFEROL 1,000 IU TAB PO SCH (09:24)
[2017-06-27] MEDS: LETAIRIS 5 MG PO SCH (09:25)
[2017-06-27] MEDS: SODIUM PHOS / POTASSIUM PHOS 1 PKT PDR PO SCH (09:25)
[2017-06-27] MEDS: FUROSEMIDE 20 MG/2 ML VIAL IVP SCH (09:26)
--- NOTE | 2017-06-27 09:26 | NUR ---
ADMINISTERED SCHEDULED MEDICATIONS. PATIENT TOLERATED ACTIVITY WELL. WHEN INFUSING LASIX 20 MG IVP PATIENT STATED PAIN AT IV SITE. IV WAS DISCONTINUED AND NEW IV WAS INSERTED BY FROILAN AT THE R FA. ADMINISTERED REMAINING MEDICATIONS. PATIENT MAGNESIUM IS INFUSING WELL. WILL CONTINUE TO MONITOR.
[2017-06-27 12:00] VITALS: BP 116/58
--- NOTE | 2017-06-27 12:00 | NUR ---
PATIENT DAUGHTER STATED PATIENT WOULD LIKE TO STAY ANOTHER NIGHT DR RICCI TO SEE PATIENT.
--- NOTE | 2017-06-27 13:00 | NUR ---
PATIENT SHOWS NO S/S OF ACUTE DISTRESS ON O2 @ 4L NC. PATIENT DENIES PAIN AND SOB. THE BED IS LOWERED WITH CALL LIGHT WITHIN REACH.
[2017-06-27] MEDS ORDERED: FURO-570 PO (13:57)
[2017-06-27] MEDS ORDERED: POTA8TER12 PO (13:57)
--- NOTE | 2017-06-27 14:45 | NUR ---
DR RICCI TO SEE PATIENT TO CLARIFY MEDICATIONS TO TAKE AT HOME.
[2017-06-27 16:00] VITALS: BP 103/66
--- NOTE | 2017-06-27 16:30 | NUR ---
DID NOT ADMINISTER ACCUCHECK PATIENT IS TO LEAVE AND CONTINUE CARE AT HOME Addendum: 06/27/17 at 1822 by Gypsy Garcia RN DID NOT ADMINISTER BC PATIENT WILL BE DISCHARGED AND GO HOME TO CONTINUE CARE
[2017-06-27] MEDS ORDERED: LISI-424 PO (16:31)
--- NOTE | 2017-06-27 16:45 | NUR ---
PATIENT HOME MEDICATIONS WERE GIVEN TO PATIENT.
--- NOTE | 2017-06-27 16:50 | NUR ---
PATIENT HAS BEEN DISCHARGED. DISCHARGE INSTRUCTIONS AND PRESCRIPTIONS GIVEN TO PATIENT. ALL PAPERWORK SIGNED, ALL QUESTIONS ANSWERED, PATIENT VERBALIZED UNDERSTANDING OF CONTINUITY OF CARE. IV DISCONTINUED WITH CANNULA INTACT. WRISTBANDS AND TELE MONITOR REMOVED. PATIENT AMB OUT OF UNIT WITH PRESENT AT SIDE. PATIENT LEFT UNIT IN STABLE CONDITION.
== END 2017-06-27 16:40 | disposition home or self-care (01) | DRG 314 ==
LOC: MED 13:56 → MTU 16:29
PROVIDERS: ADMIT Family Medicine; ATTEND Family Medicine
DX: I27.2 Other secondary pulmonary hypertension (principal); I50.43 Acute on chronic combined systolic (congestive) and diastolic (congestive) heart failure; J96.10 Chronic respiratory failure, unspecified whether with hypoxia or hypercapnia; D68.59 Other primary thrombophilia; I42.0 Dilated cardiomyopathy; E83.42 Hypomagnesemia; Z99.81 Dependence on supplemental oxygen; E83.39 Other disorders of phosphorus metabolism; E11.9 Type 2 diabetes mellitus without complications; K58.9 Irritable bowel syndrome, unspecified; I11.0 Hypertensive heart disease with heart failure; E66.9 Obesity, unspecified; Z68.34 Body mass index [BMI] 34.0-34.9, adult; K21.9 Gastro-esophageal reflux disease without esophagitis
CPT/HCPCS: 36415; 36600; 71010; 71275; 76604; 80048; 80053; 80305; 81003; 82150; 82803; 82948; 83036; 83605; 83690; 83735; 83880; 84100; 84436; 84439; 84443; 84479; 84484; 85025; 85379; 85610; 85730; 87081; 93005; 93970; 94640; 96374; 99291; J1644; J1815; J1940; J3475; J7030; J7620; Q0092; Q9967

== ENCOUNTER 2017-07-16 08:27 | Outpatient (CLI) | payer OTHER ==
[~2017-07-16 08:27] MED LIST changes: +ACTOS15 MG PO; +ACTOS30 MG PO; +APRESOLINE10 MG PO; -ASPI-1093 PO; -ATOR20TA PO; -CLON0.5T PO; +CLONAZEPAM0.5 M2 PO; +COZAAR100 MG PO; +COZAAR50 MG PO; -CYAN500T8 PO; +DEXILANT PO; +DEXLANSOPRAZOLE; +ECOTRIN81 MG PO; +EDARBYCLOR 40 M1 TAB PO; -FERR-142 PO; +GLUCOPHAGE1000 MG PO; +HCTZ PO; -HYDR-3424 PO; +HYDROCHLOROTHIAZIDE; +INTRINSI B12-F1 EACH PO; +IRON324 M1 PO; +IRON325 MG PO; +KLONOPIN0.5 MG PO; +KLONOPIN1 MG PO; +LASIX40 MG PO; +LETAIRIS5 MG PO; +LIPITOR20 MG PO; +LISINOPRIL5 M1 PO; +LOPRESSOR25 MG PO; +LOPRESSOR50 MG PO; +LOSARTAN HCTZ PO; +LOSARTAN POTASS1 TA2 PO; +MAGNESIUM-VIT1 EACH PO; +MECLIZINE25 M2 PO; -METF1000 PO; +METFORMIN HCL1000 MG PO; -METO-50 PO; +METOPROLOL25 MG PO; +MGO400 MG PO; +NORVASC10 M1 PO; +NORVASC10 MG PO; +POTASSIUM20 MEQ PO; +ROBITUSSIN; +SIMVASTATIN10 M1 PO; +SLOW-K8 ME1 PO; +TOPROL XL25 MG PO; +TOPROL XL50 MG PO; +VITAMIN B12500 MC1 PO; +VITAMIN D1000 IU PO; +[UNRECOGNIZED DRUG - OTHER] PO
[2017-07-16] MEDS ORDERED: ADEMPAS PO (11:43)
[2017-07-18] MEDS ORDERED: IRON325 MG PO (13:26)
[2017-07-18] MEDS ORDERED: PHOS-NAK1 PDR PO (13:26)
== END 2017-07-16 22:00 | disposition home or self-care (01) ==
LOC: MLB 08:27
PROVIDERS: ATTEND Family Medicine
DX: R79.0 Abnormal level of blood mineral (principal)

== ENCOUNTER 2017-07-16 11:18 | Inpatient (IN) | payer OTHER ==
[~2017-07-16] VITALS: Ht 154.9 cm; Wt 81.2 kg
[~2017-07-16 11:18] MED LIST changes: -ACTOS15 MG PO; -ACTOS30 MG PO; +AMBR5TAB PO; -APRESOLINE10 MG PO; +ASPI-1093 PO; +ATOR20TA PO; +CLON0.5T PO; -CLONAZEPAM0.5 M2 PO; -COZAAR100 MG PO; -COZAAR50 MG PO; +CYAN500T8 PO; -DEXILANT PO; -DEXLANSOPRAZOLE; -ECOTRIN81 MG PO; -EDARBYCLOR 40 M1 TAB PO; +FERR-142 PO; +FURO-570 PO; -GLUCOPHAGE1000 MG PO; -HCTZ PO; +HYDR-3424 PO; -HYDROCHLOROTHIAZIDE; -INTRINSI B12-F1 EACH PO; -IRON324 M1 PO; -IRON325 MG PO; -KLONOPIN0.5 MG PO; -KLONOPIN1 MG PO; -LASIX40 MG PO; -LETAIRIS5 MG PO; -LIPITOR20 MG PO; +LISI-424 PO; -LISINOPRIL5 M1 PO; -LOPRESSOR25 MG PO; -LOPRESSOR50 MG PO; -LOSARTAN HCTZ PO; -LOSARTAN POTASS1 TA2 PO; +MAGN400T40 PO; -MAGNESIUM-VIT1 EACH PO; -MECLIZINE25 M2 PO; +METF1000 PO; -METFORMIN HCL1000 MG PO; -METOPROLOL25 MG PO; -MGO400 MG PO; -NORVASC10 M1 PO; -NORVASC10 MG PO; +POTA8TER12 PO; -POTASSIUM20 MEQ PO; -ROBITUSSIN; -SIMVASTATIN10 M1 PO; -SLOW-K8 ME1 PO; -TOPROL XL25 MG PO; -TOPROL XL50 MG PO; +VIT1TABL33 PO; -VITAMIN B12500 MC1 PO; -VITAMIN D1000 IU PO; +VITD1000 PO; -[UNRECOGNIZED DRUG - OTHER] PO
[2017-07-16 11:28] VITALS: BP 122/47
--- NOTE | 2017-07-16 11:39 | NUR ---
PATIENT PRESENTS TO ED WITH C/O ABNORMAL LABS COLLECTED TODAY, PHOSPHORUS LEVEL 0.4---- PER PT INSTRUCTED BY TO HAVE PHOPHORUS LEVEL RECHECKED AND IF NEED TO INFUSED SPO2 90-94% WNL WITH O2 PER PT HX---PULMONARY ARTERIAL HYPERTENSION, O2 DEPENDENT 3L NC, DM, RX----METFORMIN, ASA, VIT B-12, ATORVASTATIN, CLONAZEPAM, VIT D-3, MAGNESIUM OXIDE, LASIX, POTASSIUM KLOR-CON, LOSARTAN/HCTZ, METOPROLOL, ADMPAS, LETAIRIS . PT STATES DENIES N/V/D; SKIN IS PINK/WARM/DRY; AAOX4 WITH EVEN AND STEADY GAIT; LUNGS CLEAR BL; HR EVEN AND REGULAR; PT DENIES ANY FEVER, CP, SOB, OR COUGH AT THIS TIME; PATIENT STATES PAIN OF 0/10 AT THIS TIME; VSS; PATIENT POSITIONED FOR COMFORT; HOB ELEVATED; BEDRAILS UP X2; BED DOWN. ER MD MADE AWARE OF PT STATUS.
[2017-07-16] MEDS ORDERED: RIOC0.5T PO (11:43)
--- NOTE | 2017-07-16 11:54 | NUR ---
DR RIVERA AT BEDSIDE.
[2017-07-16] MEDS ORDERED: LACTATED RINGERS 1,000 ML IV ONE (12:05)
[2017-07-16 12:35] LABS: BASOPHILS # (AUTO) 0.1 K/uL (0.00-0.22); BASOPHILS % (AUTO) 1.3 % (0.0-2.0); EOSINOPHILS # (AUTO) 0.2 K/uL (0-0.4); HEMATOCRIT 37.5 % (36-48); HEMOGLOBIN 11.7 g/dL (12.0-16.0); LYMPHOCYTES # (AUTO) 0.6 K/uL (2.5-16.5); LYMPHOCYTES % (AUTO) 11.6 % (20.5-51.1); MEAN CORPUSCULAR HEMOGLOBIN 30 pg (27-31); MEAN CORPUSCULAR HGB CONC 31 g/dL (33-37); MEAN CORPUSCULAR VOLUME 95 fL (80-94); MONOCYTES # (AUTO) 0.6 K/uL (0.8-1.0); MONOCYTES % (AUTO) 11.2 % (1.7-9.3); NEUTROPHILS # (AUTO) 3.5 K/uL (1.8-7.7); NEUTROPHILS % (AUTO) 72.9 % (42.2-75.2); PLATELET COUNT (AUTO) 311 K/uL (140-450); RED BLOOD CELL COUNT(AUTO) 3.94 MIL/uL (4.20-5.40)
[2017-07-16 12:46] LABS: ANION GAP 8.8 (8-16); CARBON DIOXIDE 31.1 mmol/L (21-32); CREATININE 0.8 mg/dL (0.6-1.3); POTASSIUM 3.9 mmol/L (3.5-5.1)
[2017-07-16 12:50] LABS: PROTHROMBIN TIME 11.2 secs (10.8-13.4)
[2017-07-16 12:52] LABS: ALBUMIN 3.7 g/dL (3.4-5.0); MAGNESIUM 1.7 mg/dL (1.8-2.4); TOTAL BILIRUBIN 2.2 mg/dL (0.0-1.0)
[2017-07-16 12:55] LABS: PHOSPHORUS 0.4 mg/dL (2.5-4.9)
[2017-07-16] MEDS ORDERED: MAG SULF 2000 MG/WATER PREMIX 50 ML IV ONE ×2 (13:30→13:50)
--- NOTE | 2017-07-16 14:21 | NUR ---
Patient will be admitted to care of DR KENNY. Admited to TELE. Will go to room 114. Belongings list completed. Report to SIMON TREVIÑO.
--- NOTE | 2017-07-16 14:35 | NUR ---
PT ADMITTED TO THE UNIT FROM ER, PT AWAKE, ALERT, AND ORIENTED. PT DENIES PAIN AT THIS TIME. PT ON 3L O2 VIA NC. NO S/S OF DISTRESS NOTED. IV LINE NOTED TO THE LEFT HAND WITH MAGNESIUM INFUSING WELL. PT PLACED ON TELE MONITORING. BED LOWERED, CALL LIGHT IN REACH, WILL CONTINUE TO MONITOR.
[2017-07-16] MEDS ORDERED: DEXTROSE 50% 50 ML SYR IVP PRN (15:35)
[2017-07-16] MEDS ORDERED: INSULIN LISPRO SLIDING SCALE 100 UNITS/ML VIAL SUBQ PRN (15:35)
[2017-07-16 15:47] VITALS: BP 143/61
[2017-07-16] MEDS ORDERED: SODIUM PHOS / POTASSIUM PHOS 1 PKT PDR PO ONE (16:45)
[2017-07-16] MEDS: BLOOD GLUCOSE MONITORING 1 DEV DEV FS SCH ×2 (17:13→21:06)
[2017-07-16] MEDS: metFORMIN 500 MG TAB PO SCH (17:54)
[2017-07-16] MEDS: SODIUM PHOS / POTASSIUM PHOS 1 PKT PDR PO SCH (17:55)
--- NOTE | 2017-07-16 19:27 | NUR ---
PATIENT REPORT GIVEN AT BEDSIDE. PATIENT ENDORSED IN STABLE CONDITION
--- NOTE | 2017-07-16 19:30 | NUR ---
RECEIVED REPORT FROM DAY RN AT BEDSIDE, PATIENT IS AAOX4 ON O2 AT 3L NC. NO SOB OR SIGN OF DISTRESS. SKIN INTACT. IV TO LEFT HAND PATENT AND INTACT. PT DENIES PAIN AT THIS TIME. DISCUSSED PLAN OF CARE WITH PATIENT, PATIENT VERBALIZED UNDERSTANDING. CALL LIGHT WITHIN REACH. WILL CONTINUE TO MONITOR. SON AT BEDSIDE.
[2017-07-16 19:55] LABS: APPEARANCE,URINE CLEAR (CLEAR); BILIRUBIN,URINE NEGATIVE (NEGATIVE); BLOOD, URINE NEGATIVE (NEGATIVE); COLOR,URINE YELLOW (YELLOW); LEUKOCYTE ESTERASE ,URINE NEGATIVE (NEGATIVE); NITRITE, URINE NEGATIVE (NEGATIVE); PH,URINE 6.5 (5.0-9.0); UGLUCOSE NEGATIVE (NEGATIVE)
[2017-07-16 20:00] VITALS: BP 112/55
[2017-07-16] MEDS: ECOTRIN 81 MG TABEC PO SCH (20:51)
[2017-07-16] MEDS: ATORVASTATIN 20 MG TAB PO SCH (20:51)
[2017-07-16] MEDS: MAGNESIUM OXIDE 400 MG TAB PO SCH (20:52)
[2017-07-16] MEDS: clonazePAM 0.5 MG TAB PO SCH (21:07)
--- NOTE | 2017-07-16 21:08 | NUR ---
PM MEDS ADMINISTERED, PATIENT TOLERATED WELL. PATIENT RESTING IN BED, NO DISTRESS, AT BEDSIDE. CALL LIGHT WITHIN REACH. WILL CONTINUE TO MONITOR
[2017-07-16] MEDS: RIOCIGUAT 0.5 MG PO SCH (21:58)
[2017-07-16] MEDS ORDERED: COMMUNICATION ORDER MC SCH (22:00)
--- NOTE | 2017-07-16 22:05 | NUR ---
PATIENT RESTING COMFORTABLE IN BED, NO DISTRESS, CALL LIGHT WITHIN REACH. WILL CONTINUE TO MONITOR
[2017-07-17] VITALS: BP 129/68
[2017-07-17] MEDS: SODIUM PHOS / POTASSIUM PHOS 1 PKT PDR PO SCH ×5 (00:05→23:30)
--- NOTE | 2017-07-17 00:15 | NUR ---
VITAL SIGNS STABLE, NO SIGN OF DISTRESS, CALL LIGHT WITHIN REACH. WILL CONTINUE TO MONITOR
--- NOTE | 2017-07-17 01:05 | NUR ---
CALLED TO BEDSIDE BY PATIENT'S . PATIENT SITTING ON SIDE OF BED STATED SHE WAS HAVING HARD TIME BREATHING. O2 SATS CHECKED, O2 AT 98%, OXYGEN CONNECTED AT 3L VIA NASAL CANNULA. PATIENT PROCEEDED TO STATE CHEST FELT TIGHT WITHOUT PAIN. BP 139/70 HR 86. PATIENT STATED SHE FELT FINE AFTER LYING BACK DOWN. WILL CONTINUE TO MONITOR.
--- NOTE | 2017-07-17 02:30 | NUR ---
PATIENT SLEEPING, NO SIGN OF DISTRESS, CALL LIGHT WITHIN REACH. WILL CONTINUE TO MONITOR
[2017-07-17 04:00] VITALS: BP 118/56
--- NOTE | 2017-07-17 04:00 | NUR ---
VITAL SIGNS STABLE, NO DISTRESS, CALL LIGHT WITHIN REACH. WILL CONTINUE TO MONITOR
[2017-07-17 05:56] LABS: BASOPHILS # (AUTO) 0.1 K/uL (0.00-0.22); BASOPHILS % (AUTO) 1.7 % (0.0-2.0); EOSINOPHILS # (AUTO) 0.2 K/uL (0-0.4); EOSINOPHILS % (AUTO) 3.4 % (0.0-4.0); HEMATOCRIT 34.2 % (36-48); HEMOGLOBIN 10.8 g/dL (12.0-16.0); LYMPHOCYTES # (AUTO) 0.7 K/uL (2.5-16.5); LYMPHOCYTES % (AUTO) 15.1 % (20.5-51.1); MEAN CORPUSCULAR HEMOGLOBIN 30 pg (27-31); MEAN CORPUSCULAR HGB CONC 32 g/dL (33-37); MEAN CORPUSCULAR VOLUME 95 fL (80-94); MONOCYTES # (AUTO) 0.6 K/uL (0.8-1.0); MONOCYTES % (AUTO) 12.4 % (1.7-9.3); NEUTROPHILS # (AUTO) 3.2 K/uL (1.8-7.7); NEUTROPHILS % (AUTO) 67.4 % (42.2-75.2); PLATELET COUNT (AUTO) 270 K/uL (140-450); WHITE BLOOD COUNT (AUTO) 4.9 K/uL (4.8-10.8)
[2017-07-17] MEDS: RIOCIGUAT 0.5 MG PO SCH ×3 (05:59→22:16)
[2017-07-17] MEDS: BLOOD GLUCOSE MONITORING 1 DEV DEV FS SCH ×4 (06:07→20:43)
[2017-07-17 06:23] LABS: ANION GAP 7.4 (8-16); CARBON DIOXIDE 28.4 mmol/L (21-32); CREATININE 0.7 mg/dL (0.6-1.3); POTASSIUM 3.8 mmol/L (3.5-5.1)
[2017-07-17 06:34] LABS: MAGNESIUM 1.8 mg/dL (1.8-2.4)
[2017-07-17 06:45] LABS: PHOSPHORUS 0.6 mg/dL (2.5-4.9)
--- NOTE | 2017-07-17 07:24 | NUR ---
ENDORSED PATIENT TO DAY RN AT BEDSIDE, PATIENT IN STABLE CONDITION
--- NOTE | 2017-07-17 07:25 | NUR ---
RECEIVED BEDSIDE REPORT FROM HOPPER OPERATOR NURSE. PT AWAKE AND ALERT, NO SIGNS OF ACUTE DISTRESS. BOWEL SOUNDS ACTIVE IN ALL 4 QUADRANTS. AMBULATORY WITH BRP. SKIN INTACT. IV PATENT AND ASYMPTOMATIC. ON OXYGEN 3L VIA NC. PATIENT DENIES PAIN AT THIS TIME. RE-ORIENTED TO HOSPITAL AND TO UNIT, PT VERBALIZED UNDERSTANDING. BED IN LOW POSITION WITH BILATERAL HALF SIDE RAILS UP, CALL LIGHT WITHIN REACH. WILL CONTINUE TO MONITOR.
[2017-07-17 08:00] VITALS: BP 141/67
[2017-07-17] MEDS: ECOTRIN 81 MG TABEC PO SCH ×2 (08:39→20:44)
[2017-07-17] MEDS: metFORMIN 500 MG TAB PO SCH ×2 (08:40→17:18)
[2017-07-17] MEDS: FUROSEMIDE 40 MG TAB PO SCH (08:40)
[2017-07-17] MEDS: CHOLECALCIFEROL 1,000 IU TAB PO SCH (08:41)
[2017-07-17] MEDS: POTASSIUM CHLORIDE 8 MEQ TABER PO SCH (08:41)
--- NOTE | 2017-07-17 08:47 | NUR ---
PATIENT HAS BEEN SCREENED AND CATEGORIZED MODERATE NUTRITION RISK. PATIENT WILL BE SEEN WITHIN 3-5 DAYS OF ADMISSION. 07/19/17-07/21/[address]
[2017-07-17] MEDS ORDERED: LISINOPRIL 5 MG TAB PO SCH (09:00)
[2017-07-17] MEDS ORDERED: SODIUM PHOSPHATE 15 MMOLE in NACL 0.9% 250 ML IV SCH (09:30)
--- NOTE | 2017-07-17 09:36 | NUR ---
ADMINISTERED IV MEDICATION ORDERED, DAUGHTER AT PATIENT BEDSIDE. PATIENT DENIES PAIN AT THIS TIME. WILL CONTINUE TO MONITOR.
[2017-07-17] MEDS ORDERED: LETAIRIS 5 MG PO SCH (11:09)
--- NOTE | 2017-07-17 11:30 | NUR ---
PT RESTING COMFORTABLY SITTING UPRIGHT IN BED, NO SIGNS OF ACUTE DISTRESS. WILL CONTINUE TO MONITOR.
[2017-07-17 12:00] VITALS: BP 124/61
[2017-07-17] MEDS ORDERED: RIOCIGUAT 0.5 MG PO SCH (13:00)
--- NOTE | 2017-07-17 14:00 | NUR ---
ADMINISTERED PATIENT 1400 MEDICATION AND ASSISTED PATIENT TO RESTROOM. PT TOLERATED WELL. WILL CONTINUE TO MONITOR.
[2017-07-17 16:00] VITALS: BP 131/66
--- NOTE | 2017-07-17 16:06 | NUR ---
MOVED PATIENT TO DIFFERENT ROOM, PT TOLERATED WELL.
[2017-07-17] MEDS: FERROUS SULFATE 325 MG TABEC PO SCH (17:18)
--- NOTE | 2017-07-17 18:00 | NUR ---
PT EATING DINNER, AT BEDSIDE, NO SIGNS OF ACUTE DISTRESS. WILL CONTINUE TO MONITOR.
--- NOTE | 2017-07-17 19:38 | NUR ---
PT AWAKE AND ALERT, NO SIGNS OF ACUTE DISTRESS. ENDORSED TO KEYPUNCH OPERATOR NURSE FOR CONTINUITY OF CARE.
--- NOTE | 2017-07-17 19:40 | NUR ---
RECEIVED FROM AM RN IN BED AWAKE AND ALERT. VERBALIZING WELL. WITH 02 AT 3LPM/NC AND 02 SAT AT 95%. BP IS 113/53 AND AFEBRILE. ON TELEMETRY MONITORING. CALL LIGHT WITH IN REACH AND CARE PLANS FOR THE NIGHT DISCUSSED WITH PT. ORIENTED X 4. DENIES ANY PAIN AT THIS TIME. DX. OF HYPO PHOSPATEMIA. ENCOURAGED TO CALL FOR ANY HELP SHE MAY NEED. IVF SITE TO LEFT HAND #24 HEPLOCK IS INTACT AND PATENT. GOOD BLOOD RETURN.
[2017-07-17 20:00] VITALS: BP 113/53
[2017-07-17] MEDS: ATORVASTATIN 20 MG TAB PO SCH (20:40)
[2017-07-17] MEDS: clonazePAM 0.5 MG TAB PO SCH (20:42)
[2017-07-17] MEDS: MAGNESIUM OXIDE 400 MG TAB PO SCH (20:43)
[2017-07-17] MEDS ORDERED: ECOTRIN 81 MG TABEC PO SCH (21:00)
[2017-07-18] VITALS: BP 128/65
--- NOTE | 2017-07-18 02:20 | NUR ---
SLEEPING AT THIS TIME. SPOUSE IN HER ROOM AND ACCOMPANYING PT. NO COMPLAINTS DONE. TELEMETRY MONITORING.
--- NOTE | 2017-07-18 03:57 | NUR ---
SLEEPING. NO RESTLESSNESS. PT. ABLE TO USE CALL LIGHT FOR ANY HELP SHE MAY NEED. SPOUSE AT BEDSIDE.
[2017-07-18 04:00] VITALS: BP 125/53
[2017-07-18] MEDS: BLOOD GLUCOSE MONITORING 1 DEV DEV FS SCH ×2 (05:43→11:30)
[2017-07-18] MEDS: RIOCIGUAT 0.5 MG PO SCH ×2 (05:43→14:35)
[2017-07-18] MEDS: SODIUM PHOS / POTASSIUM PHOS 1 PKT PDR PO SCH ×2 (05:43→14:34)
[2017-07-18 05:58] LABS: BASOPHILS # (AUTO) 0.1 K/uL (0.00-0.22); BASOPHILS % (AUTO) 2.9 % (0.0-2.0); EOSINOPHILS # (AUTO) 0.2 K/uL (0-0.4); EOSINOPHILS % (AUTO) 3.4 % (0.0-4.0); HEMATOCRIT 34.4 % (36-48); LYMPHOCYTES # (AUTO) 0.8 K/uL (2.5-16.5); LYMPHOCYTES % (AUTO) 16.5 % (20.5-51.1); MEAN CORPUSCULAR HEMOGLOBIN 30 pg (27-31); MEAN CORPUSCULAR HGB CONC 32 g/dL (33-37); MEAN CORPUSCULAR VOLUME 95 fL (80-94); MONOCYTES # (AUTO) 0.6 K/uL (0.8-1.0); MONOCYTES % (AUTO) 13.2 % (1.7-9.3); PLATELET COUNT (AUTO) 310 K/uL (140-450); RED BLOOD CELL COUNT(AUTO) 3.64 MIL/uL (4.20-5.40); WHITE BLOOD COUNT (AUTO) 4.7 K/uL (4.8-10.8)
[2017-07-18 06:21] LABS: ANION GAP 8.3 (8-16); CARBON DIOXIDE 27.5 mmol/L (21-32); CREATININE 0.7 mg/dL (0.6-1.3); POTASSIUM 3.8 mmol/L (3.5-5.1)
[2017-07-18 06:35] LABS: MAGNESIUM 1.6 mg/dL (1.8-2.4); PHOSPHORUS 1.5 mg/dL (2.5-4.9)
--- NOTE | 2017-07-18 07:13 | NUR ---
RE-CHECKED PT. WEIGHT AND TOOK OUT ALL BELONGINGS FOUND IN BED. SEE WEIGHT.
--- NOTE | 2017-07-18 07:20 | NUR ---
ENDORSED TO THE NEXT RN FOR CONTINUITY OF CARE. SITTING AT EDGE OF BED. CALL LIGHT WITH IN REACH. NO SOB. ON AT 3LPM/NC. ORIENTED X 4. ABLE TO WALK TO RESTROOM INSIDE ROOM BY HERSELF. STANDBY HELP WHEN SHE CALLS FOR HELP. TELEMETRY MONITORING.
[2017-07-18 08:00] VITALS: BP 112/55
--- NOTE | 2017-07-18 08:00 | NUR ---
PT UP SITTING AT THE EDGE OF THE BED, ALERT AND ORIENTED X4. ABLE PT IS ABLE TO MAKE NEEDS KNOWN WELL. MOVING ALL EXT WELL WITHOUT ANY LIMITATION. PT SATURATING AT 95% ON 3L NC. NO REPORTED PAIN AT THIS TIME. V/S STABLE.
[2017-07-18] MEDS ORDERED: LETAIRIS 5 MG PO SCH (09:00)
[2017-07-18] MEDS ORDERED: AMBRISENTAN 5 MG PO SCH (09:00)
[2017-07-18] MEDS: FUROSEMIDE 40 MG TAB PO SCH (09:40)
[2017-07-18] MEDS: ECOTRIN 81 MG TABEC PO SCH (09:40)
[2017-07-18] MEDS: FERROUS SULFATE 325 MG TABEC PO SCH (09:41)
[2017-07-18] MEDS: POTASSIUM CHLORIDE 8 MEQ TABER PO SCH (09:41)
[2017-07-18] MEDS: CHOLECALCIFEROL 1,000 IU TAB PO SCH (09:41)
[2017-07-18] MEDS: metFORMIN 500 MG TAB PO SCH (11:05)
[2017-07-18 11:31] LABS: FOLIC ACID 2.6 ng/mL (>3.0)
[2017-07-18] MEDS ORDERED: MAGNESIUM OXIDE 400 MG TAB PO SCH (12:00)
[2017-07-18] MEDS ORDERED: FERR-142 PO (13:26)
[2017-07-18] MEDS ORDERED: PHOS1PDR4 PO (13:26)
[2017-07-18] MEDS ORDERED: INFLUENZA VIRUS VACCINE QUAD 0.5 ML SYR IMVAC SCH (15:35)
--- NOTE | 2017-07-18 17:00 | NUR ---
DISCHARGE EDUCATION ON MEDICATION, F/U WITH MD PROVIED TO PT AND . NO PAIN OR ANY ACUTE CONDITION CHANGES PRIOR TO LEAVING. VERBAL UNDERSTANDING RECEIVED FROM PT. IV AND MONITOR WERE DC PRIOR TO LEAVING.
== END 2017-07-18 16:50 | disposition home or self-care (01) | DRG 642 ==
LOC: MED 11:18 → MTU 13:39
PROVIDERS: ADMIT Family Medicine Sports Medicine; ATTEND Family Medicine Sports Medicine
PROC: 3E0234Z Introduction of Serum, Toxoid and Vaccine into Muscle, Percutaneous Approach (ICD-10-PCS; principal; 2017-07-18)
DX: E83.39 Other disorders of phosphorus metabolism (principal); E87.3 Alkalosis; D68.59 Other primary thrombophilia; I42.0 Dilated cardiomyopathy; E11.51 Type 2 diabetes mellitus with diabetic peripheral angiopathy without gangrene; I10 Essential (primary) hypertension; E80.4 Gilbert syndrome; K80.20 Calculus of gallbladder without cholecystitis without obstruction; D53.9 Nutritional anemia, unspecified; E78.5 Hyperlipidemia, unspecified; E83.41 Hypermagnesemia; K58.0 Irritable bowel syndrome with diarrhea; E83.52 Hypercalcemia; E80.6 Other disorders of bilirubin metabolism; Z82.5 Family history of asthma and other chronic lower respiratory diseases; Z82.0 Family history of epilepsy and other diseases of the nervous system; Z23 Encounter for immunization
CPT/HCPCS: 36415; 71010; 80048; 80053; 81003; 82607; 82728; 82746; 82948; 83540; 83735; 83970; 84100; 84105; 84484; 85025; 85045; 85610; 85730; 87081; 90658; 93005; 93970; 99285; J1815; J3475; J7030; J7120; Q0092

== ENCOUNTER 2017-07-21 12:18 | Outpatient (CLI) | payer OTHER ==
[~2017-07-21 12:18] MED LIST changes: +ACTOS15 MG PO; +ACTOS30 MG PO; +ADEMPAS PO; -AMBR5TAB PO; +APRESOLINE10 MG PO; -ASPI-1093 PO; -ATOR20TA PO; -CLON0.5T PO; +CLONAZEPAM0.5 M2 PO; +COZAAR100 MG PO; +COZAAR50 MG PO; -CYAN500T8 PO; +DEXILANT PO; +DEXLANSOPRAZOLE; +ECOTRIN81 MG PO; +EDARBYCLOR 40 M1 TAB PO; -FERR-142 PO; -FURO-570 PO; +GLUCOPHAGE1000 MG PO; +HCTZ PO; -HYDR-3424 PO; +HYDROCHLOROTHIAZIDE; +INTRINSI B12-F1 EACH PO; +IRON324 M1 PO; +IRON325 MG PO; +KLONOPIN0.5 MG PO; +KLONOPIN1 MG PO; +LASIX40 MG PO; +LETAIRIS5 MG PO; +LIPITOR20 MG PO; -LISI-424 PO; +LISINOPRIL5 M1 PO; +LOPRESSOR25 MG PO; +LOPRESSOR50 MG PO; +LOSARTAN HCTZ PO; +LOSARTAN POTASS1 TA2 PO; -MAGN400T40 PO; +MAGNESIUM-VIT1 EACH PO; +MECLIZINE25 M2 PO; -METF1000 PO; +METFORMIN HCL1000 MG PO; +METOPROLOL25 MG PO; +MGO400 MG PO; +NORVASC10 M1 PO; +NORVASC10 MG PO; +PHOS-NAK1 PDR PO; -POTA8TER12 PO; +POTASSIUM20 MEQ PO; +ROBITUSSIN; +SIMVASTATIN10 M1 PO; +SLOW-K8 ME1 PO; +TOPROL XL25 MG PO; +TOPROL XL50 MG PO; -VIT1TABL33 PO; +VITAMIN B12500 MC1 PO; +VITAMIN D1000 IU PO; -VITD1000 PO; +[UNRECOGNIZED DRUG - OTHER] PO
== END 2017-07-21 21:04 | disposition home or self-care (01) ==
LOC: MLB 12:18
PROVIDERS: ATTEND Family Medicine
DX: I10 Essential (primary) hypertension (principal); R79.0 Abnormal level of blood mineral

== ENCOUNTER 2017-08-06 10:38 | Outpatient (CLI) | payer OTHER ==
[~2017-08-06 10:38] MED LIST changes: -ACTOS15 MG PO; -ACTOS30 MG PO; -ADEMPAS PO; +AMBR5TAB PO; -APRESOLINE10 MG PO; +ASPI-1093 PO; +ATOR20TA PO; +CLON0.5T PO; -CLONAZEPAM0.5 M2 PO; -COZAAR100 MG PO; -COZAAR50 MG PO; +CYAN500T8 PO; -DEXILANT PO; -DEXLANSOPRAZOLE; -ECOTRIN81 MG PO; -EDARBYCLOR 40 M1 TAB PO; +FERR-142 PO; +FURO-570 PO; -GLUCOPHAGE1000 MG PO; -HCTZ PO; -HYDROCHLOROTHIAZIDE; -INTRINSI B12-F1 EACH PO; -IRON324 M1 PO; -IRON325 MG PO; -KLONOPIN0.5 MG PO; -KLONOPIN1 MG PO; -LASIX40 MG PO; -LETAIRIS5 MG PO; -LIPITOR20 MG PO; -LISINOPRIL5 M1 PO; -LOPRESSOR25 MG PO; -LOPRESSOR50 MG PO; -LOSARTAN HCTZ PO; -LOSARTAN POTASS1 TA2 PO; +MAGN400T40 PO; -MAGNESIUM-VIT1 EACH PO; -MECLIZINE25 M2 PO; +METF1000 PO; -METFORMIN HCL1000 MG PO; -METOPROLOL25 MG PO; -MGO400 MG PO; -NORVASC10 M1 PO; -NORVASC10 MG PO; -PHOS-NAK1 PDR PO; +PHOS1PDR4 PO; +POTA8TER12 PO; -POTASSIUM20 MEQ PO; +RIOC0.5T PO; -ROBITUSSIN; -SIMVASTATIN10 M1 PO; -SLOW-K8 ME1 PO; -TOPROL XL25 MG PO; -TOPROL XL50 MG PO; -VITAMIN B12500 MC1 PO; -VITAMIN D1000 IU PO; +VITD1000 PO; -[UNRECOGNIZED DRUG - OTHER] PO
[2017-08-06 11:36] LABS: BASOPHILS # (AUTO) 0.1 K/uL (0.00-0.22); BASOPHILS % (AUTO) 2.9 % (0.0-2.0); EOSINOPHILS # (AUTO) 0.1 K/uL (0-0.4); EOSINOPHILS % (AUTO) 2.9 % (0.0-4.0); HEMATOCRIT 36.3 % (36-48); HEMOGLOBIN 11.3 g/dL (12.0-16.0); LYMPHOCYTES # (AUTO) 0.6 K/uL (2.5-16.5); LYMPHOCYTES % (AUTO) 12.5 % (20.5-51.1); MEAN CORPUSCULAR HEMOGLOBIN 29 pg (27-31); MEAN CORPUSCULAR HGB CONC 31 g/dL (33-37); MEAN CORPUSCULAR VOLUME 92 fL (80-94); MONOCYTES # (AUTO) 0.6 K/uL (0.8-1.0); MONOCYTES % (AUTO) 11.4 % (1.7-9.3); NEUTROPHILS # (AUTO) 3.5 K/uL (1.8-7.7); NEUTROPHILS % (AUTO) 70.3 % (42.2-75.2); PLATELET COUNT (AUTO) 311 K/uL (140-450); RED BLOOD CELL COUNT(AUTO) 3.93 MIL/uL (4.20-5.40); RED CELL DISTRIBUTION WIDTH 14.9 % (11.6-13.7); WHITE BLOOD COUNT (AUTO) 4.9 K/uL (4.8-10.8)
[2017-08-06 11:43] LABS: APPEARANCE,URINE HAZY (CLEAR); BILIRUBIN,URINE NEGATIVE (NEGATIVE); BLOOD, URINE NEGATIVE (NEGATIVE); COLOR,URINE YELLOW (YELLOW); LEUKOCYTE ESTERASE ,URINE NEGATIVE (NEGATIVE); NITRITE, URINE NEGATIVE (NEGATIVE); PH,URINE 7.5 (5.0-9.0); UGLUCOSE NEGATIVE (NEGATIVE)
[2017-08-06 11:44] LABS: ALBUMIN 3.7 g/dL (3.4-5.0); ANION GAP 10.2 (8-16); CARBON DIOXIDE 27.8 mmol/L (21-32); CREATININE 0.8 mg/dL (0.6-1.3); PHOSPHORUS 2.1 mg/dL (2.5-4.9)
[2017-08-06 18:46] LABS: URINE PROTEIN QUANT RANDOM 4.5 mg/dL (15-45)
[2017-08-10] MEDS ORDERED: MAGN400T7 PO (03:56)
== END 2017-08-06 22:32 | disposition home or self-care (01) ==
LOC: MLB 10:38
PROVIDERS: ATTEND Family Medicine
DX: N18.3 Chronic kidney disease, stage 3 (moderate) (principal)
CPT/HCPCS: 36415; 81003; 82040; 82306; 82435; 82565; 82570; 82947; 83970; 84100; 84132; 84157; 84295; 84520; 85025; 87086

== ENCOUNTER 2017-09-03 08:37 | Outpatient (CLI) | payer OTHER ==
[~2017-09-03 08:37] MED LIST changes: +MAGN400T7 PO
[2017-09-03 09:43] LABS: BASOPHILS # (AUTO) 0.2 K/uL (0.00-0.22); BASOPHILS % (AUTO) 3.1 % (0.0-2.0); EOSINOPHILS # (AUTO) 0.1 K/uL (0-0.4); EOSINOPHILS % (AUTO) 2.7 % (0.0-4.0); HEMATOCRIT 36.8 % (36-48); HEMOGLOBIN 11.8 g/dL (12.0-16.0); LYMPHOCYTES # (AUTO) 0.7 K/uL (2.5-16.5); MEAN CORPUSCULAR HEMOGLOBIN 29 pg (27-31); MEAN CORPUSCULAR HGB CONC 32 g/dL (33-37); MEAN CORPUSCULAR VOLUME 89 fL (80-94); MONOCYTES # (AUTO) 0.7 K/uL (0.8-1.0); MONOCYTES % (AUTO) 14.1 % (1.7-9.3); NEUTROPHILS # (AUTO) 3.2 K/uL (1.8-7.7); NEUTROPHILS % (AUTO) 66.1 % (42.2-75.2); PLATELET COUNT (AUTO) 272 K/uL (140-450); RED BLOOD CELL COUNT(AUTO) 4.13 MIL/uL (4.20-5.40); RED CELL DISTRIBUTION WIDTH 14.8 % (11.6-13.7); WHITE BLOOD COUNT (AUTO) 4.9 K/uL (4.8-10.8)
[2017-09-03 10:05] LABS: ALBUMIN 3.6 g/dL (3.4-5.0); ANION GAP 12.8 (8-16); CARBON DIOXIDE 27.8 mmol/L (21-32); CREATININE 0.8 mg/dL (0.6-1.3); MAGNESIUM 1.6 mg/dL (1.8-2.4); PHOSPHORUS 2.2 mg/dL (2.5-4.9); POTASSIUM 4.6 mmol/L (3.5-5.1); TOTAL BILIRUBIN 1.7 mg/dL (0.0-1.0)
== END 2017-09-03 20:40 | disposition home or self-care (01) ==
LOC: MLB 08:37
PROVIDERS: ATTEND Family Medicine
DX: E11.9 Type 2 diabetes mellitus without complications (principal); E83.39 Other disorders of phosphorus metabolism; E83.42 Hypomagnesemia; D64.9 Anemia, unspecified
CPT/HCPCS: 36415; 80053; 83735; 84100; 85025

== ENCOUNTER 2017-12-19 09:01 | Outpatient (CLI) | payer OTHER | END 2017-12-19 19:22 | disposition home or self-care (01) | LOC: MRD 09:01 | PROVIDERS: ATTEND Family Medicine | DX: M54.2 Cervicalgia (principal) | CPT/HCPCS: 72050 ==

== ENCOUNTER 2018-02-20 08:30 | Outpatient (CLI) | payer OTHER ==
[2018-02-20 09:38] LABS: ALBUMIN 3.8 g/dL (3.4-5.0); ANION GAP 12.9 (8-16); CARBON DIOXIDE 28.3 mmol/L (21-32); CREATININE 0.8 mg/dL (0.6-1.3); POTASSIUM 4.2 mmol/L (3.5-5.1); TOTAL BILIRUBIN 1.6 mg/dL (0.0-1.0)
[2018-02-20 09:48] LABS: BASOPHILS % (AUTO) 0.4 % (0.0-2.0); CHOL/HDL RATIO 2.5 (1-4.5); EOSINOPHILS # (AUTO) 0.1 K/uL (0-0.4); HEMATOCRIT 36.7 % (36-48); LYMPHOCYTES # (AUTO) 1.2 K/uL (2.5-16.5); LYMPHOCYTES % (AUTO) 25.6 % (20.5-51.1); MAGNESIUM 1.6 mg/dL (1.8-2.4); MEAN CORPUSCULAR HEMOGLOBIN 28 pg (27-31); MEAN CORPUSCULAR HGB CONC 33 g/dL (33-37); MEAN CORPUSCULAR VOLUME 85.9 fL (80-94); MONOCYTES # (AUTO) 0.5 K/uL (0.8-1.0); MONOCYTES % (AUTO) 10.7 % (1.7-9.3); NEUTROPHILS # (AUTO) 2.7 K/uL (1.8-7.7); NEUTROPHILS % (AUTO) 60.3 % (42.2-75.2); PHOSPHORUS 5.7 mg/dL (2.5-4.9); PLATELET COUNT (AUTO) 225 K/uL (140-450); RED BLOOD CELL COUNT(AUTO) 4.28 MIL/uL (4.20-5.40); RED CELL DISTRIBUTION WIDTH 15.6 % (11.6-13.7); THYROID STIMULATING HORMONE 2.3 uIU/mL (0.34-3.74); WHITE BLOOD COUNT (AUTO) 4.5 K/uL (4.8-10.8)
== END 2018-02-20 23:12 | disposition home or self-care (01) ==
LOC: MLB 08:30
PROVIDERS: ATTEND Family Medicine
DX: I10 Essential (primary) hypertension (principal); E11.9 Type 2 diabetes mellitus without complications; R79.89 Other specified abnormal findings of blood chemistry
CPT/HCPCS: 36415; 80053; 82043; 82306; 83036; 83735; 83880; 84100; 84443; 85025

== ENCOUNTER 2018-03-25 21:00 | Emergency (ER) | payer OTHER ==
[~2018-03-25] VITALS: Ht 160 cm; Wt 75.7 kg
[2018-03-25 21:10] VITALS: BP 135/59
--- NOTE | 2018-03-25 21:12 | NUR ---
PT TO 6
--- NOTE | 2018-03-25 21:20 | NUR ---
Patient being evaluated by physician at bedside.
--- NOTE | 2018-03-25 21:25 | NUR ---
63YO F BIB FOR RUQ ABD PAIN X1 DAY. BS ACTIVE X4. PT DENIES N/V/D. PT STATES THAT PAIN STARTED THIS AM AND PROGRESSIVELY GETTING WORSE. PAIN 8/10.
[2018-03-25] MEDS ORDERED: ONDANSETRON 4 MG ODT PO ONE (21:30)
[2018-03-25] MEDS ORDERED: MORPHINE SULFATE 5 MG/ML VIAL IM ONE (21:30)
[2018-03-25] MEDS ORDERED: MORPHINE SULFATE 4 MG/ML SYR ONE (21:41)
[2018-03-25 21:44] LABS: BASOPHILS # (AUTO) 0.1 K/uL (0.00-0.22); BASOPHILS % (AUTO) 0.9 % (0.0-2.0); EOSINOPHILS # (AUTO) 0.2 K/uL (0-0.4); EOSINOPHILS % (AUTO) 2.6 % (0.0-4.0); HEMATOCRIT 37.9 % (36-48); LYMPHOCYTES # (AUTO) 1.4 K/uL (2.5-16.5); LYMPHOCYTES % (AUTO) 21.5 % (20.5-51.1); MEAN CORPUSCULAR HEMOGLOBIN 27 pg (27-31); MEAN CORPUSCULAR HGB CONC 32 g/dL (33-37); MEAN CORPUSCULAR VOLUME 85.8 fL (80-94); MONOCYTES # (AUTO) 0.6 K/uL (0.8-1.0); MONOCYTES % (AUTO) 9.2 % (1.7-9.3); NEUTROPHILS # (AUTO) 4.3 K/uL (1.8-7.7); NEUTROPHILS % (AUTO) 65.8 % (42.2-75.2); PLATELET COUNT (AUTO) 238 K/uL (140-450); RED BLOOD CELL COUNT(AUTO) 4.41 MIL/uL (4.20-5.40); RED CELL DISTRIBUTION WIDTH 15.7 % (11.6-13.7); WHITE BLOOD COUNT (AUTO) 6.5 K/uL (4.8-10.8)
[2018-03-25 21:59] LABS: ALBUMIN 3.9 g/dL (3.4-5.0); ANION GAP 12.7 (8-16); CARBON DIOXIDE 27.5 mmol/L (21-32); CREATININE 0.9 mg/dL (0.6-1.3); POTASSIUM 4.2 mmol/L (3.5-5.1); TOTAL BILIRUBIN 1.3 mg/dL (0.0-1.0)
--- NOTE | 2018-03-25 22:15 | NUR ---
PT DENIES ANY PAIN. PT RESTING IN NO APPERENT DISTRESS. WILL CONTINUE TO MONITOR
[2018-03-25] MEDS ORDERED: KETOROLAC 30 MG/ML VIAL IVP ONE (22:20)
[2018-03-25] MEDS ORDERED: MORPHINE SULFATE 4 MG/ML SYR IM ONE (23:05)
[2018-03-25 23:35] VITALS: BP 107/46
--- NOTE | 2018-03-25 23:35 | NUR ---
Patient discharged with v/s stable. Written and verbal after care instructions given and explained. Patient verbalized understanding. Ambulatory with steady gait. All questions addressed prior to discharge. Advised to follow up with PMD.
== END 2018-03-25 23:35 | disposition home or self-care (01) ==
LOC: MED 21:00
DX: K80.50 Calculus of bile duct without cholangitis or cholecystitis without obstruction (principal); I10 Essential (primary) hypertension; E11.9 Type 2 diabetes mellitus without complications; E78.5 Hyperlipidemia, unspecified; Z79.899 Other long term (current) drug therapy
CPT/HCPCS: 36415; 80053; 81002; 81025; 83690; 85025; 96372; 99285; J2270; S0119

== ENCOUNTER 2018-03-28 08:08 | Outpatient (CLI) | payer OTHER ==
[2018-03-28 08:45] LABS: ALBUMIN 3.8 g/dL (3.4-5.0); ANION GAP 11.3 (8-16); CREATININE 0.9 mg/dL (0.6-1.3); PHOSPHORUS 4.4 mg/dL (2.5-4.9); POTASSIUM 4.3 mmol/L (3.5-5.1); TOTAL BILIRUBIN 1.3 mg/dL (0.0-1.0)
== END 2018-03-28 20:42 | disposition home or self-care (01) ==
LOC: MLB 08:08
PROVIDERS: ATTEND Family Medicine
DX: I27.20 Pulmonary hypertension, unspecified (principal); E83.42 Hypomagnesemia; E11.9 Type 2 diabetes mellitus without complications; I10 Essential (primary) hypertension
CPT/HCPCS: 36415; 80053; 84100

== ENCOUNTER 2018-05-13 22:58 | Emergency (ER) | payer OTHER ==
[~2018-05-13] VITALS: Ht 160 cm; Wt 75.3 kg
[2018-05-13 23:18] VITALS: BP 117/59
[2018-05-13 23:23] LABS: BASOPHILS % (AUTO) 0.5 % (0.0-2.0); EOSINOPHILS # (AUTO) 0.2 K/uL (0-0.4); EOSINOPHILS % (AUTO) 2.2 % (0.0-4.0); HEMATOCRIT 36.4 % (36-48); HEMOGLOBIN 11.6 g/dL (12.0-16.0); LYMPHOCYTES # (AUTO) 1.5 K/uL (2.5-16.5); LYMPHOCYTES % (AUTO) 22.2 % (20.5-51.1); MEAN CORPUSCULAR HEMOGLOBIN 27 pg (27-31); MEAN CORPUSCULAR HGB CONC 32 g/dL (33-37); MEAN CORPUSCULAR VOLUME 85.9 fL (80-94); MONOCYTES # (AUTO) 0.6 K/uL (0.8-1.0); MONOCYTES % (AUTO) 9.5 % (1.7-9.3); NEUTROPHILS # (AUTO) 4.5 K/uL (1.8-7.7); NEUTROPHILS % (AUTO) 65.6 % (42.2-75.2); PLATELET COUNT (AUTO) 220 K/uL (140-450); RED BLOOD CELL COUNT(AUTO) 4.24 MIL/uL (4.20-5.40); RED CELL DISTRIBUTION WIDTH 16.7 % (11.6-13.7); WHITE BLOOD COUNT (AUTO) 6.9 K/uL (4.8-10.8)
[2018-05-13] MEDS ORDERED: MORPHINE SULFATE 4 MG/ML SYR IM ONE (23:40)
[2018-05-13 23:57] LABS: ANION GAP 12.4 (8-16); CARBON DIOXIDE 27.9 mmol/L (21-32); CREATININE 0.9 mg/dL (0.6-1.3); POTASSIUM 4.3 mmol/L (3.5-5.1)
[2018-05-13 23:59] LABS: ALBUMIN 4.2 g/dL (3.4-5.0); TOTAL BILIRUBIN 1.3 mg/dL (0.0-1.0)
[2018-05-14 01:05] VITALS: BP 111/58
== END 2018-05-14 01:05 | disposition home or self-care (01) ==
LOC: MED 22:58
DX: R10.11 Right upper quadrant pain (principal); E11.9 Type 2 diabetes mellitus without complications; I27.20 Pulmonary hypertension, unspecified; Z79.899 Other long term (current) drug therapy; Z79.1 Long term (current) use of non-steroidal anti-inflammatories (NSAID)
CPT/HCPCS: 36415; 80053; 81002; 81025; 83690; 85025; 96372; 99284; J2270

== ENCOUNTER 2018-07-03 08:39 | Outpatient (CLI) | payer OTHER ==
[2018-07-03 09:32] LABS: ALBUMIN 3.9 g/dL (3.4-5.0); CARBON DIOXIDE 30.2 mmol/L (21-32); CREATININE 0.8 mg/dL (0.6-1.3); POTASSIUM 4.2 mmol/L (3.5-5.1); TOTAL BILIRUBIN 1.3 mg/dL (0.0-1.0)
== END 2018-07-03 21:24 | disposition home or self-care (01) ==
LOC: MLB 08:39
PROVIDERS: ATTEND Family Medicine
DX: I27.20 Pulmonary hypertension, unspecified (principal); E83.39 Other disorders of phosphorus metabolism; I10 Essential (primary) hypertension; E11.9 Type 2 diabetes mellitus without complications
CPT/HCPCS: 36415; 80053; 84100

== ENCOUNTER 2018-09-18 02:13 | Emergency (ER) | payer OTHER ==
[~2018-09-18] VITALS: Ht 160 cm; Wt 72.1 kg
[~2018-09-18 02:13] MED LIST changes: +POTA10TE30 PO; -POTA8TER12 PO; -RIOC0.5T PO; +RIOC2.5T PO
[2018-09-18 02:20] VITALS: BP 119/60
[2018-09-18] MEDS ORDERED: KETOROLAC 30 MG/ML VIAL IVP ONE (02:55)
[2018-09-18] MEDS ORDERED: MORPHINE SULFATE 4 MG/ML SYR IVP ONE (02:55)
[2018-09-18] MEDS ORDERED: MORPHINE SULFATE 4 MG/ML SYR ONE (03:21)
[2018-09-18 03:59] LABS: CARBON DIOXIDE 26.6 mmol/L (21-32); CREATININE 0.8 mg/dL (0.6-1.3); POTASSIUM 4.6 mmol/L (3.5-5.1)
[2018-09-18 04:05] LABS: ALBUMIN 3.4 g/dL (3.4-5.0); TOTAL BILIRUBIN 1.1 mg/dL (0.0-1.0)
[2018-09-18 04:10] LABS: BASOPHILS # (AUTO) 0.1 K/uL (0.00-0.22); BASOPHILS % (AUTO) 0.9 % (0.0-2.0); EOSINOPHILS # (AUTO) 0.2 K/uL (0-0.4); EOSINOPHILS % (AUTO) 3.8 % (0.0-4.0); HEMOGLOBIN 11.3 g/dL (12.0-16.0); LYMPHOCYTES # (AUTO) 1.5 K/uL (2.5-16.5); LYMPHOCYTES % (AUTO) 24.7 % (20.5-51.1); MEAN CORPUSCULAR HEMOGLOBIN 28 pg (27-31); MEAN CORPUSCULAR HGB CONC 32 g/dL (33-37); MEAN CORPUSCULAR VOLUME 86.6 fL (80-94); MONOCYTES # (AUTO) 0.6 K/uL (0.8-1.0); MONOCYTES % (AUTO) 9.8 % (1.7-9.3); NEUTROPHILS # (AUTO) 3.8 K/uL (1.8-7.7); NEUTROPHILS % (AUTO) 60.8 % (42.2-75.2); PLATELET COUNT (AUTO) 212 K/uL (140-450); RED BLOOD CELL COUNT(AUTO) 4.05 MIL/uL (4.20-5.40); RED CELL DISTRIBUTION WIDTH 15.9 % (11.6-13.7); WHITE BLOOD COUNT (AUTO) 6.2 K/uL (4.8-10.8)
[2018-09-18 05:19] VITALS: BP 112/45
== END 2018-09-18 05:19 | disposition home or self-care (01) ==
LOC: MED 02:13
DX: R10.11 Right upper quadrant pain (principal); K80.20 Calculus of gallbladder without cholecystitis without obstruction; I50.9 Heart failure, unspecified; I11.0 Hypertensive heart disease with heart failure; E11.9 Type 2 diabetes mellitus without complications; E78.5 Hyperlipidemia, unspecified; Z79.84 Long term (current) use of oral hypoglycemic drugs; Z79.899 Other long term (current) drug therapy
CPT/HCPCS: 36415; 74176; 80053; 82948; 83690; 85025; 96374; 96375; 99284; J1885; J2270; 99283

== ENCOUNTER 2018-10-18 19:38 | Emergency (ER) | payer OTHER ==
[~2018-10-18] VITALS: Ht 157.5 cm; Wt 72.1 kg
[~2018-10-18 19:38] MED LIST changes: -MAGN400T40 PO; +TREP0.12 PO
[2018-10-18 19:42] VITALS: BP 132/64
--- NOTE | 2018-10-18 19:50 | NUR ---
PT TAKEN TO BED 10
--- NOTE | 2018-10-18 19:50 | NUR ---
Dr. Vieira evaluating patient
--- NOTE | 2018-10-18 19:55 | NUR ---
63/F PRESENTS TO ED WITH DAUGHTER AND , C/O 07/25 RUQ PAIN, RADIAITNG TO R FLANK PAIN, X5 HRS. PT IS SCHEDULED FOR CHOLECYSTECTOMY D/T CHOLELITHIASIS ON 11/15, PT WENT TO SURGEON TODAY, PAIN EXACERBATED BY SURGEON'S MEDICAL EVALUATION AND PALPATION. PT REPORTS TAKING TYLENOL WITH NO RELIEF. HX DM-CONTROLLED, PULMONARY HTN, HTN, CHOLELITHIASIS, BILIARY COLIC
--- NOTE | 2018-10-18 20:51 | NUR ---
ER AT BEDSIDE
[2018-10-18] MEDS ORDERED: ONDANSETRON 4 MG ODT PO ONE (21:00)
[2018-10-18] MEDS ORDERED: MORPHINE SULFATE 4 MG/ML SYR IM ONE (21:00)
[2018-10-18 21:49] VITALS: BP 127/49
== END 2018-10-18 21:49 | disposition home or self-care (01) ==
LOC: MED 19:38
DX: R10.11 Right upper quadrant pain (principal); E11.9 Type 2 diabetes mellitus without complications; I11.9 Hypertensive heart disease without heart failure; Z79.84 Long term (current) use of oral hypoglycemic drugs; Z79.899 Other long term (current) drug therapy
CPT/HCPCS: 96372; 99283; J2270; Q0162

== ENCOUNTER 2018-11-08 08:01 | Outpatient (CLI) | payer OTHER ==
[2018-11-08 08:38] LABS: BASOPHILS % (AUTO) 0.7 % (0.0-2.0); EOSINOPHILS # (AUTO) 0.2 K/uL (0-0.4); EOSINOPHILS % (AUTO) 2.5 % (0.0-4.0); HEMATOCRIT 41.3 % (36-48); HEMOGLOBIN 13.1 g/dL (12.0-16.0); LYMPHOCYTES # (AUTO) 1.7 K/uL (2.5-16.5); LYMPHOCYTES % (AUTO) 28.3 % (20.5-51.1); MEAN CORPUSCULAR HEMOGLOBIN 27 pg (27-31); MEAN CORPUSCULAR HGB CONC 32 g/dL (33-37); MEAN CORPUSCULAR VOLUME 86.2 fL (80-94); MONOCYTES # (AUTO) 0.5 K/uL (0.8-1.0); MONOCYTES % (AUTO) 8.8 % (1.7-9.3); NEUTROPHILS # (AUTO) 3.5 K/uL (1.8-7.7); NEUTROPHILS % (AUTO) 59.7 % (42.2-75.2); PLATELET COUNT (AUTO) 224 K/uL (140-450); RED CELL DISTRIBUTION WIDTH 15.5 % (11.6-13.7); WHITE BLOOD COUNT (AUTO) 5.9 K/uL (4.8-10.8)
[2018-11-08 09:24] LABS: ANION GAP 11.9 (8-16); CARBON DIOXIDE 30.2 mmol/L (21-32); CREATININE 0.8 mg/dL (0.6-1.3); POTASSIUM 4.1 mmol/L (3.5-5.1); PROTHROMBIN TIME 9.3 secs (10.8-13.4); TOTAL BILIRUBIN 1.1 mg/dL (0.0-1.0)
[2018-11-08 09:38] LABS: APPEARANCE,URINE CLEAR (CLEAR); BILIRUBIN,URINE NEGATIVE (NEGATIVE); BLOOD, URINE NEGATIVE (NEGATIVE); COLOR,URINE YELLOW (YELLOW); LEUKOCYTE ESTERASE ,URINE TRACE (NEGATIVE); NITRITE, URINE NEGATIVE (NEGATIVE); UGLUCOSE NEGATIVE (NEGATIVE)
[2018-11-08 09:40] LABS: RBC,URINE 0-5 (RARE) /HPF (0-5); WBC,URINE 0-5 (RARE) /HPF (0-5)
== END 2018-11-08 16:52 | disposition home or self-care (01) ==
LOC: MLB 08:01
PROVIDERS: ATTEND Family Medicine
DX: Z01.818 Encounter for other preprocedural examination (principal); J98.4 Other disorders of lung; E11.9 Type 2 diabetes mellitus without complications; I11.0 Hypertensive heart disease with heart failure; I50.9 Heart failure, unspecified
CPT/HCPCS: 36415; 71045; 80053; 81001; 85025; 85610; 85730; 93005

== ENCOUNTER 2019-01-23 07:01 | Outpatient (CLI) | payer OTHER ==
[2019-01-23 08:25] LABS: ANION GAP 11.6 (8-16); CARBON DIOXIDE 27.9 mmol/L (21-32); CREATININE 0.7 mg/dL (0.6-1.3); POTASSIUM 4.5 mmol/L (3.5-5.1)
[2019-01-23 09:06] LABS: BASOPHILS % (AUTO) 0.6 % (0.0-2.0); EOSINOPHILS # (AUTO) 0.2 K/uL (0-0.4); EOSINOPHILS % (AUTO) 3.5 % (0.0-4.0); HEMOGLOBIN 12.4 g/dL (12.0-16.0); LYMPHOCYTES # (AUTO) 1.4 K/uL (2.5-16.5); LYMPHOCYTES % (AUTO) 24.9 % (20.5-51.1); MEAN CORPUSCULAR HEMOGLOBIN 28 pg (27-31); MEAN CORPUSCULAR HGB CONC 33 g/dL (33-37); MEAN CORPUSCULAR VOLUME 86.6 fL (80-94); MONOCYTES # (AUTO) 0.4 K/uL (0.8-1.0); MONOCYTES % (AUTO) 8.1 % (1.7-9.3); NEUTROPHILS # (AUTO) 3.5 K/uL (1.8-7.7); NEUTROPHILS % (AUTO) 62.9 % (42.2-75.2); PLATELET COUNT (AUTO) 248 K/uL (140-450); RED BLOOD CELL COUNT(AUTO) 4.38 MIL/uL (4.20-5.40); RED CELL DISTRIBUTION WIDTH 16.8 % (11.6-13.7); WHITE BLOOD COUNT (AUTO) 5.5 K/uL (4.8-10.8)
[2019-01-23 18:16] LABS: TOTAL BILIRUBIN 1.3 mg/dL (0.0-1.0)
[2019-01-23 18:17] LABS: ALBUMIN 3.6 g/dL (3.4-5.0)
[2019-01-23 18:28] LABS: MAGNESIUM 1.7 mg/dL (1.8-2.4); PHOSPHORUS 4.2 mg/dL (2.5-4.9)
== END 2019-01-23 22:07 | disposition home or self-care (01) ==
LOC: MLB 07:01
PROVIDERS: ATTEND Family Medicine
DX: I27.20 Pulmonary hypertension, unspecified (principal)
CPT/HCPCS: 36415; 80053; 83735; 84100; 85025

== ENCOUNTER 2019-04-16 07:25 | Outpatient (CLI) | payer OTHER ==
[2019-04-16 07:56] LABS: BASOPHILS % (AUTO) 0.6 % (0.0-2.0); EOSINOPHILS # (AUTO) 0.1 K/uL (0-0.4); EOSINOPHILS % (AUTO) 2.1 % (0.0-4.0); HEMATOCRIT 38.5 % (36-48); HEMOGLOBIN 12.4 g/dL (12.0-16.0); LYMPHOCYTES # (AUTO) 1.4 K/uL (2.5-16.5); LYMPHOCYTES % (AUTO) 23.3 % (20.5-51.1); MEAN CORPUSCULAR HEMOGLOBIN 29 pg (27-31); MEAN CORPUSCULAR HGB CONC 32 g/dL (33-37); MEAN CORPUSCULAR VOLUME 89.5 fL (80-94); MONOCYTES # (AUTO) 0.5 K/uL (0.8-1.0); MONOCYTES % (AUTO) 8.5 % (1.7-9.3); NEUTROPHILS # (AUTO) 3.8 K/uL (1.8-7.7); NEUTROPHILS % (AUTO) 65.5 % (42.2-75.2); PLATELET COUNT (AUTO) 260 K/uL (140-450); RED CELL DISTRIBUTION WIDTH 14.8 % (11.6-13.7); WHITE BLOOD COUNT (AUTO) 5.9 K/uL (4.8-10.8)
[2019-04-16 08:34] LABS: ALBUMIN 3.7 g/dL (3.4-5.0); ANION GAP 11.7 (8-16); CARBON DIOXIDE 25.9 mmol/L (21-32); CHOL/HDL RATIO 2.8 (1-4.5); CREATININE 0.7 mg/dL (0.6-1.3); MAGNESIUM 1.7 mg/dL (1.8-2.4); PHOSPHORUS 4.1 mg/dL (2.5-4.9); POTASSIUM 4.6 mmol/L (3.5-5.1); THYROID STIMULATING HORMONE 1.64 uIU/mL (0.34-3.74); TOTAL BILIRUBIN 0.9 mg/dL (0.0-1.0)
== END 2019-04-16 21:25 | disposition home or self-care (01) ==
LOC: MLB 07:25
PROVIDERS: ATTEND Family Medicine
DX: E11.9 Type 2 diabetes mellitus without complications (principal); E87.8 Other disorders of electrolyte and fluid balance, not elsewhere classified; R00.2 Palpitations
CPT/HCPCS: 36415; 80053; 83036; 83735; 84100; 84443; 85025

== ENCOUNTER 2019-04-17 07:52 | Outpatient (CLI) | payer OTHER | END 2019-04-17 20:44 | disposition home or self-care (01) | LOC: MRD 07:52 | PROVIDERS: ATTEND Family Medicine | DX: M79.602 Pain in left arm (principal) | CPT/HCPCS: 73060 ==

== ENCOUNTER 2019-05-20 08:50 | Outpatient (CLI) | payer OTHER ==
[2019-05-20 10:07] LABS: MAGNESIUM 1.8 mg/dL (1.8-2.4); PHOSPHORUS 3.1 mg/dL (2.5-4.9)
== END 2019-05-20 21:51 | disposition home or self-care (01) ==
LOC: MLB 08:50
PROVIDERS: ATTEND Family Medicine
DX: E61.2 Magnesium deficiency (principal)
CPT/HCPCS: 36415; 83735; 84100

== ENCOUNTER 2019-07-15 07:45 | Emergency (ER) | payer OTHER ==
[~2019-07-15] VITALS: Ht 157.5 cm; Wt 70.8 kg
[2019-07-15 07:50] VITALS: BP 110/51
[2019-07-15] MEDS ORDERED: FERR324T11 PO (08:00)
[2019-07-15] MEDS ORDERED: NACL 0.9% 1,000 ML IV ONE (08:05)
[2019-07-15 08:26] LABS: BASOPHILS # (AUTO) 0.1 K/uL (0.00-0.22); EOSINOPHILS # (AUTO) 0.1 K/uL (0-0.4); EOSINOPHILS % (AUTO) 2.1 % (0.0-4.0); HEMATOCRIT 43.4 % (36-48); HEMOGLOBIN 14.1 g/dL (12.0-16.0); LYMPHOCYTES # (AUTO) 1.4 K/uL (2.5-16.5); LYMPHOCYTES % (AUTO) 20.9 % (20.5-51.1); MEAN CORPUSCULAR HEMOGLOBIN 29 pg (27-31); MEAN CORPUSCULAR HGB CONC 32 g/dL (33-37); MEAN CORPUSCULAR VOLUME 89.2 fL (80-94); MONOCYTES # (AUTO) 0.6 K/uL (0.8-1.0); MONOCYTES % (AUTO) 8.3 % (1.7-9.3); NEUTROPHILS # (AUTO) 4.6 K/uL (1.8-7.7); NEUTROPHILS % (AUTO) 67.7 % (42.2-75.2); PLATELET COUNT (AUTO) 284 K/uL (140-450); RED BLOOD CELL COUNT(AUTO) 4.87 MIL/uL (4.20-5.40); RED CELL DISTRIBUTION WIDTH 15.7 % (11.6-13.7); WHITE BLOOD COUNT (AUTO) 6.8 K/uL (4.8-10.8)
[2019-07-15 08:53] LABS: ANION GAP 13.9 (8-16); CARBON DIOXIDE 25.3 mmol/L (21-32); CREATININE 0.7 mg/dL (0.6-1.3); POTASSIUM 4.2 mmol/L (3.5-5.1)
[2019-07-15 08:58] LABS: ALBUMIN 3.9 g/dL (3.4-5.0); TOTAL BILIRUBIN 1.6 mg/dL (0.0-1.0)
[2019-07-15 09:32] VITALS: BP 106/63
[2019-07-15 09:33] LABS: APPEARANCE,URINE CLEAR (CLEAR); BILIRUBIN,URINE NEGATIVE (NEGATIVE); BLOOD, URINE NEGATIVE (NEGATIVE); COLOR,URINE YELLOW (YELLOW); LEUKOCYTE ESTERASE ,URINE TRACE (NEGATIVE); NITRITE, URINE NEGATIVE (NEGATIVE); PH,URINE 6.5 (5.0-9.0); UGLUCOSE NEGATIVE (NEGATIVE)
[2019-07-15 09:43] LABS: RBC,URINE NONE SEEN /HPF (0-5); WBC,URINE 0-5 /HPF (0-5)
[2019-07-15 09:44] LABS: CALCIUM OXALATE CRYSTALS,UR 0-10 /HPF (None Seen)
== END 2019-07-15 09:32 | disposition home or self-care (01) ==
LOC: MED 07:45
DX: I27.20 Pulmonary hypertension, unspecified (principal); E11.9 Type 2 diabetes mellitus without complications; R19.7 Diarrhea, unspecified; Z79.84 Long term (current) use of oral hypoglycemic drugs; Z79.899 Other long term (current) drug therapy; Z86.79 Personal history of other diseases of the circulatory system; Z98.890 Other specified postprocedural states
CPT/HCPCS: 36415; 71045; 80053; 81001; 81025; 82948; 83880; 84443; 84484; 85025; 93005; 99284

== ENCOUNTER 2019-12-18 07:10 | Outpatient (CLI) | payer OTHER ==
[~2019-12-18 07:10] MED LIST changes: -AMBR5TAB PO; -FERR-142 PO; +FERR324T11 PO
== END 2019-12-18 19:40 | disposition home or self-care (01) ==
LOC: MUS 07:10
PROVIDERS: ATTEND Family Medicine
DX: R10.9 Unspecified abdominal pain (principal); Z90.710 Acquired absence of both cervix and uterus
CPT/HCPCS: 76700

== ENCOUNTER 2020-02-21 07:35 | Outpatient (CLI) | payer OTHER ==
[2020-02-21 08:35] LABS: BASOPHILS % (AUTO) 0.6 % (0.0-2.0); EOSINOPHILS # (AUTO) 0.2 K/uL (0-0.4); EOSINOPHILS % (AUTO) 3.2 % (0.0-4.0); HEMATOCRIT 40.9 % (36-48); HEMOGLOBIN 13.2 g/dL (12.0-16.0); LYMPHOCYTES # (AUTO) 1.2 K/uL (2.5-16.5); LYMPHOCYTES % (AUTO) 21.3 % (20.5-51.1); MEAN CORPUSCULAR HEMOGLOBIN 29 pg (27-31); MEAN CORPUSCULAR HGB CONC 32 g/dL (33-37); MEAN CORPUSCULAR VOLUME 90.2 fL (80-94); MONOCYTES # (AUTO) 0.5 K/uL (0.8-1.0); MONOCYTES % (AUTO) 8.8 % (1.7-9.3); NEUTROPHILS # (AUTO) 3.8 K/uL (1.8-7.7); NEUTROPHILS % (AUTO) 66.1 % (42.2-75.2); PLATELET COUNT (AUTO) 272 K/uL (140-450); RED BLOOD CELL COUNT(AUTO) 4.53 MIL/uL (4.20-5.40); RED CELL DISTRIBUTION WIDTH 15.1 % (11.6-13.7); WHITE BLOOD COUNT (AUTO) 5.7 K/uL (4.8-10.8)
[2020-02-21 08:59] LABS: ALBUMIN 3.7 g/dL (3.4-5.0); ANION GAP 9.4 (8-16); CARBON DIOXIDE 28.9 mmol/L (21-32); CHOL/HDL RATIO 2.4 (1-4.5); CREATININE 0.9 mg/dL (0.6-1.3); MAGNESIUM 1.7 mg/dL (1.8-2.4); PHOSPHORUS 2.1 mg/dL (2.5-4.9); POTASSIUM 4.3 mmol/L (3.5-5.1); THYROID STIMULATING HORMONE 1.93 uIU/mL (0.34-3.74); TOTAL BILIRUBIN 1.1 mg/dL (0.0-1.0)
[2020-02-22 08:07] LABS: MICROALBUMIN, UR RANDOM 23.8 ug/mL (Not Estab.)
== END 2020-02-21 18:11 | disposition home or self-care (01) ==
LOC: MLB 07:35
PROVIDERS: ATTEND Family Medicine
DX: I10 Essential (primary) hypertension (principal); E11.9 Type 2 diabetes mellitus without complications
CPT/HCPCS: 36415; 80053; 82043; 82272; 83036; 83735; 84100; 84443; 85025

== ENCOUNTER 2020-05-12 07:34 | Emergency (ER) | payer OTHER ==
[~2020-05-12] VITALS: Ht 157.5 cm; Wt 72.6 kg
--- NOTE | 2020-05-12 07:34 | NUR ---
Patient transferred to bed 4 via wheelchair by tech. RN evaluating patient at bedside.
[2020-05-12 07:37] VITALS: BP 120/49
--- NOTE | 2020-05-12 07:43 | NUR ---
65 Y/O FEMALE FROM HOME C/O ABD PAIN SINCE 0200 TODAY. DENIES N/V/D. 07/25 CRAMPING PAIN. STATES SHE FELT LIKE SHE NEEDED TO HAVE A BM BUT UNABLE TO. PT PRESENTS DIAPHORETIC AND COOL TO THE TOUCH AT THIS TIME. RR EVEN AND UNLABORED, PLACED ON BEDSIDE MONITOR. HOB ELEVATED, POSITIONED FOR COMFORT. MEDHX: HTN, DM, PULMONARY ARTERIA HTN
--- NOTE | 2020-05-12 07:51 | NUR ---
DR LAMAS AT BEDSIDE EXAMINING PT
[2020-05-12] MEDS ORDERED: FAMOTIDINE 20 MG TAB PO ONE (07:55)
[2020-05-12] MEDS ORDERED: ALUMINUM HYD/MAG/SIMETHICONE 30 ML UDC PO ONE (07:55)
--- NOTE | 2020-05-12 08:19 | NUR ---
LAB AT BEDSIDE FOR BLOOD DRAW
[2020-05-12 08:28] LABS: EOSINOPHILS # (AUTO) 0.1 K/uL (0-0.4); EOSINOPHILS % (AUTO) 2.5 % (0.0-4.0); HEMATOCRIT 39.5 % (36-48); HEMOGLOBIN 12.8 g/dL (12.0-16.0); LYMPHOCYTES # (AUTO) 1.3 K/uL (2.5-16.5); LYMPHOCYTES % (AUTO) 26.1 % (20.5-51.1); MEAN CORPUSCULAR HEMOGLOBIN 29 pg (27-31); MEAN CORPUSCULAR HGB CONC 32 g/dL (33-37); MEAN CORPUSCULAR VOLUME 90.4 fL (80-94); MONOCYTES # (AUTO) 0.5 K/uL (0.8-1.0); MONOCYTES % (AUTO) 9.6 % (1.7-9.3); NEUTROPHILS % (AUTO) 60.8 % (42.2-75.2); PLATELET COUNT (AUTO) 239 K/uL (140-450); RED BLOOD CELL COUNT(AUTO) 4.37 MIL/uL (4.20-5.40); WHITE BLOOD COUNT (AUTO) 4.9 K/uL (4.8-10.8)
[2020-05-12 08:43] LABS: ALBUMIN 3.6 g/dL (3.4-5.0); ANION GAP 13.9 (8-16); CARBON DIOXIDE 24.4 mmol/L (21-32); CREATININE 0.8 mg/dL (0.6-1.3); POTASSIUM 4.3 mmol/L (3.5-5.1); TOTAL BILIRUBIN 1.2 mg/dL (0.0-1.0)
--- NOTE | 2020-05-12 09:08 | NUR ---
PT STATES DECREASE IN PAIN IN ABD AFTER MEDICATION. AWAKE AND ALERT. VSS
--- NOTE | 2020-05-12 09:16 | NUR ---
Dr. Maria is reevaluating the patient at bedside.
[2020-05-12 09:30] VITALS: BP 133/54
== END 2020-05-12 09:30 | disposition home or self-care (01) ==
LOC: MED 07:34
DX: K21.9 Gastro-esophageal reflux disease without esophagitis (principal); E11.9 Type 2 diabetes mellitus without complications; I10 Essential (primary) hypertension; Z98.890 Other specified postprocedural states; Z90.49 Acquired absence of other specified parts of digestive tract; Z79.4 Long term (current) use of insulin; Z79.899 Other long term (current) drug therapy
CPT/HCPCS: 36415; 80053; 83690; 85025; 93005; 99284

== ENCOUNTER 2020-05-12 15:47 | Inpatient (IN) | payer OTHER ==
[~2020-05-12] VITALS: Ht 157.5 cm; Wt 72.1 kg
[2020-05-12 15:49] VITALS: BP 130/49
--- NOTE | 2020-05-12 16:00 | NUR ---
PT AMB TO BED 12
--- NOTE | 2020-05-12 16:24 | NUR ---
Patient being evaluated by DR LAMAS at bedside.
[2020-05-12] MEDS ORDERED: ALUMINUM HYD/MAG/SIMETHICONE 30 ML UDC PO ONE (16:30)
[2020-05-12] MEDS ORDERED: FAMOTIDINE 20 MG TAB PO ONE (16:30)
--- NOTE | 2020-05-12 16:47 | NUR ---
2nd visit today for pt , c/o supraumbilical region with nausea emesis---last bm today normal no straining as per pt---denies recent injury 0xygen dependent, denies need for more at this time
[2020-05-12 17:07] LABS: BASOPHILS % (AUTO) 0.4 % (0.0-2.0); EOSINOPHILS # (AUTO) 0.1 K/uL (0-0.4); EOSINOPHILS % (AUTO) 0.9 % (0.0-4.0); HEMATOCRIT 43.3 % (36-48); HEMOGLOBIN 13.6 g/dL (12.0-16.0); LYMPHOCYTES # (AUTO) 0.9 K/uL (2.5-16.5); LYMPHOCYTES % (AUTO) 7.8 % (20.5-51.1); MEAN CORPUSCULAR HEMOGLOBIN 29 pg (27-31); MEAN CORPUSCULAR HGB CONC 31 g/dL (33-37); MEAN CORPUSCULAR VOLUME 90.9 fL (80-94); MONOCYTES # (AUTO) 0.8 K/uL (0.8-1.0); MONOCYTES % (AUTO) 6.5 % (1.7-9.3); NEUTROPHILS # (AUTO) 10.1 K/uL (1.8-7.7); NEUTROPHILS % (AUTO) 84.4 % (42.2-75.2); PLATELET COUNT (AUTO) 282 K/uL (140-450); RED BLOOD CELL COUNT(AUTO) 4.76 MIL/uL (4.20-5.40); RED CELL DISTRIBUTION WIDTH 14.8 % (11.6-13.7)
[2020-05-12 17:18] LABS: ALBUMIN 4.1 g/dL (3.4-5.0); ANION GAP 14.6 (8-16); CARBON DIOXIDE 25.5 mmol/L (21-32); CREATININE 0.8 mg/dL (0.6-1.3); POTASSIUM 4.1 mmol/L (3.5-5.1); TOTAL BILIRUBIN 1.5 mg/dL (0.0-1.0)
[2020-05-12] MEDS ORDERED: fentaNYL citrate 0.05 MG/ML VIAL IM ONE (17:50)
[2020-05-12] MEDS: ONDANSETRON 4 MG ODT PO ONE ×2 (18:12→18:24)
--- NOTE | 2020-05-12 18:24 | NUR ---
IM MEDS GIVE-NADR AT THIS TIME. VSS
--- NOTE | 2020-05-12 19:30 | NUR ---
PT RESTING IN BED COMFORTABLY. EQUAL CHEST RISE AND FALL ON 2L NC. PT REQUESTING DINNER TRAY. ORDER FOR DINNER TRAY PLACED.
--- NOTE | 2020-05-12 19:45 | NUR ---
PT STATES SHE STILL HAS 5/10 ABDOMINAL PAIN BUT IS DENYING WANTING ANY MORE PAIN MEDICATION.
--- NOTE | 2020-05-12 20:00 | NUR ---
PT GIVEN DINNER TRAY.
--- NOTE | 2020-05-12 20:30 | NUR ---
ERMD AT BEDSIDE EXPLAINING BENEFITS OF IN [facility] ADMISSION. PT WANTS TO SPEAK WITH FAMILY BEFORE DECIDING IF SHE WILL BE ADMITTED TO HOSPITAL.
[2020-05-12] MEDS ORDERED: ONDANSETRON 4 MG/2 ML VIAL IM/IVP PRN (21:30)
[2020-05-12] MEDS ORDERED: POTASSIUM CHLORIDE 10 MEQ TABER PO PRN (21:30)
[2020-05-12] MEDS ORDERED: ZOLPIDEM 5 MG TAB PO PRN (21:30)
[2020-05-12] MEDS ORDERED: ACETAMINOPHEN 325 MG TAB PO PRN (21:30)
[2020-05-12] MEDS ORDERED: HYDROcodone/APAP 7.5/325 MG 1 TAB PO PRN (21:30)
[2020-05-12] MEDS ORDERED: DOCUSATE SODIUM 100 MG GELCAP PO PRN (21:30)
[2020-05-12 22:20] VITALS: BP 113/50
--- NOTE | 2020-05-12 22:20 | NUR ---
RECEIVED PT FROM ER VIA WHEELCHAIR, PT IS AAOX4 AMBULATORY ON 11 17 LTS VIA NC, DENIES ANY PAIN AT THIS TIME PAIN MEDIC GIVEN IN ER, MRSA NARES SWAB PROTOCOL DONE AND SENT TO LAB, PT DOES NOT HAVE ANY IV ACCESS A NEW IV WILL BE STARTED, PT IS ORIENTED TO THE FLOOR CALL LIGHT WITHIN REACH
--- NOTE | 2020-05-12 22:20 | NUR ---
Patient will be admitted to care of [facility]. Admited to [facility]. Will go to room 104. Belongings list completed. Report to SIMON ARAUJO.
[2020-05-12 22:25] LABS: PROTHROMBIN TIME 10.2 secs (10.8-13.4)
[2020-05-12 23:10] LABS: CHOL/HDL RATIO 2.6 (1-4.5); FREE T4 (FREE THYROXINE) 1.23 ng/dL (0.76-1.46); MAGNESIUM 1.7 mg/dL (1.8-2.4); PHOSPHORUS 2.8 mg/dL (2.5-4.9); THYROID STIMULATING HORMONE 0.97 uIU/mL (0.34-3.74)
--- NOTE | 2020-05-13 | NUR ---
IV WAS INSERTED ON RT HAND GAUGE # 24
--- NOTE | 2020-05-13 04:00 | NUR ---
PT HAS BEEN SLEEPING WELL NOT SIGNS, OF PAIN, AND PT HAS BEEN ASSISTING TO THE RESTROOM VOIFING WELL STILL PENDING TO GIVE URINE SAMPLE
[2020-05-13 06:00] VITALS: BP 127/58
--- NOTE | 2020-05-13 06:00 | NUR ---
PT SLEEPING WELL NOTPAIN NOTED REMAIN STABLE AT THIS TIME IV ON RT HAND INFUSING WELL
[2020-05-13 06:28] LABS: BASOPHILS % (AUTO) 0.4 % (0.0-2.0); EOSINOPHILS # (AUTO) 0.2 K/uL (0-0.4); EOSINOPHILS % (AUTO) 3.5 % (0.0-4.0); HEMATOCRIT 39.1 % (36-48); HEMOGLOBIN 12.7 g/dL (12.0-16.0); LYMPHOCYTES # (AUTO) 1.1 K/uL (2.5-16.5); LYMPHOCYTES % (AUTO) 22.9 % (20.5-51.1); MEAN CORPUSCULAR HEMOGLOBIN 29 pg (27-31); MEAN CORPUSCULAR HGB CONC 32 g/dL (33-37); MEAN CORPUSCULAR VOLUME 90.4 fL (80-94); MONOCYTES # (AUTO) 0.5 K/uL (0.8-1.0); MONOCYTES % (AUTO) 11.6 % (1.7-9.3); NEUTROPHILS # (AUTO) 2.9 K/uL (1.8-7.7); NEUTROPHILS % (AUTO) 61.6 % (42.2-75.2); PLATELET COUNT (AUTO) 259 K/uL (140-450); RED BLOOD CELL COUNT(AUTO) 4.33 MIL/uL (4.20-5.40); RED CELL DISTRIBUTION WIDTH 14.5 % (11.6-13.7); WHITE BLOOD COUNT (AUTO) 4.6 K/uL (4.8-10.8)
--- NOTE | 2020-05-13 06:45 | NUR ---
PT IS TAKEN TO CT ABDOMEN AND PT WILL BE ENDORSED TODAY SHIFT NURSE
[2020-05-13 06:47] LABS: ANION GAP 14.2 (8-16); CARBON DIOXIDE 23.9 mmol/L (21-32); CREATININE 0.7 mg/dL (0.6-1.3); POTASSIUM 4.1 mmol/L (3.5-5.1)
--- NOTE | 2020-05-13 07:45 | NUR ---
RECEIVED REPORT FROM [employer] PRODUCTION TEAM MEMBER RN. PT AOX4. LUNG CTA BILAT. ON 2L NC. 24G IV ON R HAND W/ NS AT 60ML/HR. IV SITE CLEAN, DRY, INTACT. SAFETY MEASURES IN PLACE. BED IN LOW POSITION. CALL LIGHT IN REACH. WILL CONTINUE TO MONITOR. [facility]
--- NOTE | 2020-05-13 08:21 | NUR ---
SPOKE TO PATIENT'S SON ([phone]). HE WANTED TO TALK TO DR. LITTLE ONCE HE MADE ROUNDS. WILL INFORM DR. LITTLE.
--- NOTE | 2020-05-13 09:05 | NUR ---
PATIENT HAS BEEN SCREENED AND CATEGORIZED MODERATE NUTRITION RISK. PATIENT WILL BE SEEN WITHIN 3-5 DAYS OF ADMISSION. 05/15/20 05/17/[address]
--- NOTE | 2020-05-13 09:15 | NUR ---
DR. DONAHUE AT BEDSIDE.
--- NOTE | 2020-05-13 11:30 | NUR ---
URINE SAMPLE COLLECTED. SENT SPECIMEN TO THE LAB.
--- NOTE | 2020-05-13 11:45 | NUR ---
HYDRAULIC ASSEMBLER NOTE: Patient's Orientation Person Situation Place Time Information Provided By PATIENT Comments SW MET PATIENT AT BEDSIDE TO VERIFY DEMOGRAPHICS. Dump Truck Operator, Realtionship and Phone Number EMIL LU [phone] Healthcare Power of Ice Cream Man No Does Patient Have a POLST No Identifying Problems No Social Work Triggers Is A Social Work Consult Needed No Mandate Report Filed No Explanation Of Identifying Problems PATIENT IS A 65-YEAR-OLD FEMALE ADMITTED FOR ABDOMINAL PAIN AND PULMONARY HYPERTENSION. PATIENT HAS PMHX OF CARDIAC DISORDERS, DIABETES, AND HYPERTENSION. Admitted From Home Pre-Admission Level Of Functioning Status Independent With DME Prior Resources/Services Used In Last 12 Months No Prior Resources Used Prior DME Home Oxygen Living Situation Lives With Family House Patient Had Caregiver No Home Support No Caregiver Issues Financial Issues No Known Financial Issue Referral To The Financial Counselor Needed No Factors/Needs No D/C Needs Identified Pt/Rep Participated In Discharge Plan Yes Patient/Family Agress With Discharge Plan Yes Discharge Plan Comments TENTATIVE DISCHARGE PLAN IS FOR PATIENT TO BE DISCHARGED HOME. DC Plan Status Initiated
--- NOTE | 2020-05-13 11:54 | NUR ---
PATIENT IS AWAKE, SITTING UP IN BED, ON HER CELLPHONE. INFORMED THAT DR. GONZALES HASN'T MADE ROUNDS. PATIENT VERBALIZED UNDERSTANDING. DENIES ABDOMINAL PAIN AT THIS TIME. NO SOB, ON 2L O2 VIA NC. WILL CONTINUE TO MONITOR.
--- NOTE | 2020-05-13 12:29 | NUR ---
DISCHARGE PLANNING: THIS IS A 65 Y/O FEMALE PATIENT FROM HOME, WHO CAME IN DUE TO MILD, INTERMITTENT, NON RADIATING UPPER ABDOMINAL PAIN. PAST MEDICAL HISTORY INCLUDE CARDIAC DISORDER, DIABETES, HTN, CHOLECYSTECTOMY. INITIAL DIAGNOSIS OF ABDOMINAL PAIN, PULMONARY HTN. CURRENT LABS INCLUDE WBC 4.6, H/H 12.7/39.1, NA/K 141/4.1, BUN/CREA 8/0.7. GALLBLADDER U/S SHOWED S/P CHOLECYSTECTOMY AND HEPATOMEGALY. CT ABD/PELVIS SHOWED FAT CONTAINING UMBILICAL HERNIA, SMALL HIATAL HERNIA. GI CONSULT IN PLACE. DOWNGRADED TO MED-SURG. TENTATIVE DC PLAN BACK TO HOME ONCE STABLE.
[2020-05-13 12:57] LABS: APPEARANCE,URINE YELLOW (CLEAR); BILIRUBIN,URINE NEGATIVE (NEGATIVE); BLOOD, URINE NEG (NEGATIVE); COLOR,URINE CLEAR (YELLOW); UGLUCOSE NEG. (NEGATIVE)
[2020-05-13 12:58] LABS: LEUKOCYTE ESTERASE ,URINE TRACE (NEGATIVE); NITRITE, URINE NEGATIVE (NEGATIVE)
[2020-05-13 12:59] LABS: RBC,URINE 0-5 /HPF (0-5); WBC,URINE 0-5 /HPF (0-5)
--- NOTE | 2020-05-13 14:04 | NUR ---
DR. LITTLE MADE ROUNDS
--- NOTE | 2020-05-13 14:05 | NUR ---
PATIENT C/O OF HEARTBURN. SHE IS REQUESTING FOR PEPCID. DR. LITTLE WILL PUT IN ORDER
[2020-05-13] MEDS: NACL 0.9% 1,000 ML IV SCH ×2 (14:06)
--- NOTE | 2020-05-13 14:22 | NUR ---
PATIENT SIGNED CONSENT FOR EGD. PATIENT AWARE SHE WILL BE NPO AFTER MIDNIGHT.
--- NOTE | 2020-05-13 15:50 | NUR ---
PT C/O OF ABD PAIN / HEARTBURN. PT REFUSED NORCO PRN FOR PAIN. PT WILLING TO WAIT UNTIL 2100 FOR PROTONIX.
--- NOTE | 2020-05-13 16:24 | NUR ---
PATIENT IS WALKING AROUND THE UNIT. NO SIGNS OF DISTRESS NOTED. BED IN LOW POSITION. CALL LIGHT IS WITHIN REACH. WILL CONTINUE TO MONITOR
[2020-05-13] MEDS: metFORMIN 500 MG TAB PO SCH (16:29)
--- NOTE | 2020-05-13 16:30 | NUR ---
METFORMIN GIVEN PO. MEDICATION EDUCATION GIVEN. WILL CONTINUE TO MONITOR
--- NOTE | 2020-05-13 17:26 | NUR ---
[facility] AWARE THAT PATIENT CAN ONLY EAT CHICKEN. NO PORK OR BEEF.
--- NOTE | 2020-05-13 17:29 | NUR ---
PAGED DR. HILARIO TEMPLE. WILL WAIT FOR CALL BACK
--- NOTE | 2020-05-13 17:36 | NUR ---
SPOKE TO DR. Rd TEMPLE STATED OKAY FOR PATIENT TO GET THE EGD TOMORROW. HE ORDERED ECHO. WILL CARRY OUT ORDER
[2020-05-13 18:06] VITALS: BP 117/42
--- NOTE | 2020-05-13 18:06 | NUR ---
SPOKE TO DR. KULKARNI REGARDING PATIENT SCHEDULED EGD TOMORROW. HE GAVE OKAY FOR EGD PROCEDURE. WILL INFORM PATIENT.
--- NOTE | 2020-05-13 18:09 | NUR ---
PATIENT AWARE DR. Rd TEMPLE AND DR. CAYLA CHO FOR EGD TOMORROW. WILL CALL [facility] FOR PLAIN TOAST Addendum: 05/13/20 at 1811 by Princess Ginette Dave RN DR. ROWAN CROCKETT
--- NOTE | 2020-05-13 19:03 | NUR ---
HUNG NEW IV BAG OF NS AT A RATE OF 60 ML/HR. GIVEN NEW SURGICAL MASK
--- NOTE | 2020-05-13 19:25 | NUR ---
ENDORSED PATIENT TO THE DIE TECHNICIAN NURSE FOR CONTINUITY OF CARE. PATIENT IS IN STABLE CONDITION
[2020-05-13 20:00] VITALS: BP 114/47
--- NOTE | 2020-05-13 20:00 | NUR ---
A/A/O X4. AMBULATORY.IVF NS @ 60 ML/HR INFUSING WELL.DENIES ANY DISCOMFORT NOR CP @ THIS TIME.DENIES SOB. INSTRUCTED TO USE CALL LIGHT NEEDED;WITHIN REACH.AFEBRILE.BP 114/47.
[2020-05-13] MEDS ORDERED: ATORVASTATIN 20 MG TAB PO SCH (21:00)
[2020-05-13] MEDS ORDERED: clonazePAM 0.5 MG TAB PO SCH (21:00)
--- NOTE | 2020-05-13 21:00 | NUR ---
DUE MEDS ADM.
[2020-05-13] MEDS: ECOTRIN 81 MG TABEC PO SCH (21:39)
[2020-05-13] MEDS: PANTOPRAZOLE 40 MG INJ VIAL IVP SCH (21:39)
[2020-05-13] MEDS: MAGNESIUM OXIDE 400 MG TAB PO SCH (21:48)
--- NOTE | 2020-05-13 23:45 | NUR ---
INSTRUCTED NPO POST MN FOR EGD IN AM;VERBALIZED UNDERSTANDING OF THE INSTRUCTION GIVEN.
[2020-05-14] VITALS: BP 113/71
--- NOTE | 2020-05-14 | NUR ---
RESTING COMFORTALY IN NO ACUTE DISTRESS.CALL LIGHT WITHIN REACH.
--- NOTE | 2020-05-14 02:00 | NUR ---
ASLEEP IN NO ACUTE DISTRESS.IVF INFUSING WELL.
--- NOTE | 2020-05-14 04:00 | NUR ---
RESTING COMFORTABLY IN NO ACUTE DISTRESS.IVF INFUSING WELL.
--- NOTE | 2020-05-14 05:00 | NUR ---
OOB TO THE BR.AM CARE DONE WITH PEDIATRIC NURSE.
[2020-05-14 06:18] LABS: BASOPHILS % (AUTO) 0.5 % (0.0-2.0); EOSINOPHILS # (AUTO) 0.3 K/uL (0-0.4); EOSINOPHILS % (AUTO) 4.8 % (0.0-4.0); HEMATOCRIT 38.7 % (36-48); HEMOGLOBIN 12.7 g/dL (12.0-16.0); LYMPHOCYTES # (AUTO) 1.1 K/uL (2.5-16.5); LYMPHOCYTES % (AUTO) 18.6 % (20.5-51.1); MEAN CORPUSCULAR HEMOGLOBIN 30 pg (27-31); MEAN CORPUSCULAR HGB CONC 33 g/dL (33-37); MEAN CORPUSCULAR VOLUME 90.3 fL (80-94); MONOCYTES # (AUTO) 0.6 K/uL (0.8-1.0); MONOCYTES % (AUTO) 10.3 % (1.7-9.3); NEUTROPHILS # (AUTO) 3.9 K/uL (1.8-7.7); NEUTROPHILS % (AUTO) 65.8 % (42.2-75.2); PLATELET COUNT (AUTO) 248 K/uL (140-450); RED BLOOD CELL COUNT(AUTO) 4.28 MIL/uL (4.20-5.40); RED CELL DISTRIBUTION WIDTH 14.6 % (11.6-13.7); WHITE BLOOD COUNT (AUTO) 5.9 K/uL (4.8-10.8)
[2020-05-14 06:46] LABS: ANION GAP 15.3 (8-16); CARBON DIOXIDE 23.7 mmol/L (21-32); CREATININE 0.8 mg/dL (0.6-1.3)
[2020-05-14] MEDS: NACL 0.9% 1,000 ML IV SCH (06:46)
--- NOTE | 2020-05-14 06:50 | NUR ---
ENDORSED A/A/O X4.NO ACUTE DISTRESS.IVF INFUSING WELL.CALL LIGHT WITHIN REACH.SAFETY MAINTAINED.
--- NOTE | 2020-05-14 07:33 | NUR ---
SHIFT REPORT MG LUZ FROM MOLECULAR GENETIC PATHOLOGIST NURSE. PT IS SITTING BY SIDE OF BED ANS RESPONSIVE. IV IN PLACE. NO COMPLAINS OF PAIN. NO DISTRESS NOTED. BED IN LOW POSITION. CALL LIGHT IN REACH.
[2020-05-14] MEDS ORDERED: FERROUS GLUCONATE 324 MG TAB PO SCH (08:00)
[2020-05-14 08:13] LABS: T4 (THYROXINE) 8.4 ug/dL (4.5-12.0)
[2020-05-14] MEDS ORDERED: VITAMIN D 400 IU TAB PO SCH (09:00)
[2020-05-14] MEDS ORDERED: FUROSEMIDE 40 MG TAB PO SCH (09:00)
[2020-05-14] MEDS ORDERED: CYANOCOBALAMIN 100 MCG TAB PO SCH (09:00)
--- NOTE | 2020-05-14 09:30 | NUR ---
MORNING MEDS GIVEN TO PT. PT IS SITTING BY BEDSIDE. NO DISTRESS OR COMPLAINS OF PAIN REPORTED. IV IN PLACE. BED IN LOW POSITION. PT WILL BE GOING FOR EGD PROCEDURE LATER THIS MORNING. PT IS NPO NOW EXCEPT MEDS. WILL CONTINUE TO MONITOR. CALL LIGHT IN REACH.
[2020-05-14] MEDS: ECOTRIN 81 MG TABEC PO SCH (09:42)
[2020-05-14] MEDS: PANTOPRAZOLE 40 MG INJ VIAL IVP SCH (09:42)
[2020-05-14] MEDS: SODIUM PHOS / POTASSIUM PHOS 1 PKT PDR PO SCH ×2 (09:43→12:24)
[2020-05-14] MEDS: metFORMIN 500 MG TAB PO SCH (09:43)
[2020-05-14] MEDS: MAGNESIUM OXIDE 400 MG TAB PO SCH (09:43)
--- NOTE | 2020-05-14 10:20 | NUR ---
PT IS OFF UNIT FOR EGD PROCEDURE.
[2020-05-14] MEDS ORDERED: MIDAZOLAM 2 MG/2 ML VIAL ONE (11:08)
[2020-05-14] MEDS ORDERED: fentaNYL citrate 0.05 MG/ML VIAL ONE (11:08)
--- NOTE | 2020-05-14 12:00 | NUR ---
PT CAME BACK TO UNIT. PT IS AWAKE AND RESPONSIVE. PT IS SITTING IN BED. NO DISTRESS OR COMPLAINS OF PAIN REPORTED. PT IS ASKING FOR LUNCH. WILL CONTINUE TO MONITOR. CALL LIGHT IN REACH.
[2020-05-14] MEDS ORDERED: PANT40EC PO (13:24)
[2020-05-14] MEDS ORDERED: MIDAZOLAM 2 MG/2 ML VIAL IVP ONE (14:55)
[2020-05-14] MEDS ORDERED: fentaNYL citrate 0.05 MG/ML VIAL IVP ONE (14:55)
--- NOTE | 2020-05-14 15:30 | NUR ---
PT WAS DISCHARGED TO HOME TODAY. DISCHARGE INSTRUCTIONS GIVEN TO PT. MEDS SENT TO PHARMACY. PT STABLE AT DISCHARGE. SKIN INTACT. NO COMPLAINS OF PAIN. ID BAND REMOVED. IV REMOVED. BELONGINGS WITH PT. PT'S DAUGHTER PICKED UP PT. PT WILL F/U WITH PCP UPON D/C. EGD RESULTS ESOPHAGITIS.
== END 2020-05-14 15:30 | disposition home or self-care (01) | DRG 381 ==
LOC: MED 15:47 → MTU 19:14
PROVIDERS: ADMIT Family Medicine; ATTEND Family Medicine
PROC: 0DB68ZX Excision of Stomach, Via Natural or Artificial Opening Endoscopic, Diagnostic (ICD-10-PCS; principal; 2020-05-14 11:30)
DX: K22.10 Ulcer of esophagus without bleeding (principal); I27.0 Primary pulmonary hypertension; J96.11 Chronic respiratory failure with hypoxia; E11.9 Type 2 diabetes mellitus without complications; E78.5 Hyperlipidemia, unspecified; E83.42 Hypomagnesemia; K21.0 Gastro-esophageal reflux disease with esophagitis; K44.9 Diaphragmatic hernia without obstruction or gangrene; E66.9 Obesity, unspecified; Z90.49 Acquired absence of other specified parts of digestive tract; Z99.81 Dependence on supplemental oxygen; Z79.899 Other long term (current) drug therapy; Z68.29 Body mass index [BMI] 29.0-29.9, adult
CPT/HCPCS: 36415; 71045; 76705; 80048; 80053; 81001; 82150; 83036; 83690; 83735; 83880; 84100; 84436; 84439; 84443; 84479; 84484; 85025; 85610; 85730; 86140; 86677; 87081; 93005; 96372; 99285; C9113; J2250; J3010; J7030; Q0092; Q0162

== ENCOUNTER 2020-05-29 16:55 | Emergency (ER) | payer OTHER ==
[~2020-05-29] VITALS: Ht 157.5 cm; Wt 72.6 kg
[~2020-05-29 16:55] MED LIST changes: +PANT40EC PO
[2020-05-29 17:00] VITALS: BP 134/60
[2020-05-29] MEDS ORDERED: NACL 0.9% 1,000 ML IV SCH (17:36)
[2020-05-29 17:57] LABS: BASOPHILS % (AUTO) 0.5 % (0.0-2.0); EOSINOPHILS % (AUTO) 0.2 % (0.0-4.0); HEMATOCRIT 39.8 % (36-48); HEMOGLOBIN 13.2 g/dL (12.0-16.0); LYMPHOCYTES # (AUTO) 0.8 K/uL (2.5-16.5); LYMPHOCYTES % (AUTO) 16.7 % (20.5-51.1); MEAN CORPUSCULAR HEMOGLOBIN 29 pg (27-31); MEAN CORPUSCULAR HGB CONC 33 g/dL (33-37); MONOCYTES # (AUTO) 0.5 K/uL (0.8-1.0); MONOCYTES % (AUTO) 10.6 % (1.7-9.3); NEUTROPHILS # (AUTO) 3.4 K/uL (1.8-7.7); PLATELET COUNT (AUTO) 250 K/uL (140-450); RED BLOOD CELL COUNT(AUTO) 4.52 MIL/uL (4.20-5.40); WHITE BLOOD COUNT (AUTO) 4.7 K/uL (4.8-10.8)
[2020-05-29 18:12] LABS: ALBUMIN 3.9 g/dL (3.4-5.0); ANION GAP 17.9 (8-16); CARBON DIOXIDE 21.8 mmol/L (21-32); CREATININE 1.1 mg/dL (0.6-1.3); POTASSIUM 3.7 mmol/L (3.5-5.1)
[2020-05-29 18:50] VITALS: BP 134/60
== END 2020-05-29 18:51 | disposition home or self-care (01) ==
LOC: MED 16:55
DX: A08.4 Viral intestinal infection, unspecified (principal); E11.9 Type 2 diabetes mellitus without complications; I10 Essential (primary) hypertension; I51.89 Other ill-defined heart diseases; K21.9 Gastro-esophageal reflux disease without esophagitis; Z20.828 Contact with and (suspected) exposure to other viral communicable diseases; Z79.899 Other long term (current) drug therapy
CPT/HCPCS: 80053; 83690; 85025; 93005; 96360; 99284; J7030; U0003; 81002

== ENCOUNTER 2020-07-29 07:36 | Outpatient (CLI) | payer OTHER ==
[2020-07-29 08:21] LABS: BASOPHILS # (AUTO) 0.1 K/uL (0.00-0.22); EOSINOPHILS # (AUTO) 0.1 K/uL (0-0.4); EOSINOPHILS % (AUTO) 2.7 % (0.0-4.0); HEMATOCRIT 39.2 % (36-48); HEMOGLOBIN 12.9 g/dL (12.0-16.0); LYMPHOCYTES # (AUTO) 1.4 K/uL (2.5-16.5); LYMPHOCYTES % (AUTO) 26.8 % (20.5-51.1); MEAN CORPUSCULAR HEMOGLOBIN 29 pg (27-31); MEAN CORPUSCULAR HGB CONC 33 g/dL (33-37); MEAN CORPUSCULAR VOLUME 88.8 fL (80-94); MONOCYTES # (AUTO) 0.5 K/uL (0.8-1.0); MONOCYTES % (AUTO) 9.9 % (1.7-9.3); NEUTROPHILS # (AUTO) 3.2 K/uL (1.8-7.7); NEUTROPHILS % (AUTO) 59.6 % (42.2-75.2); PLATELET COUNT (AUTO) 264 K/uL (140-450); RED BLOOD CELL COUNT(AUTO) 4.41 MIL/uL (4.20-5.40); RED CELL DISTRIBUTION WIDTH 15.6 % (11.6-13.7); WHITE BLOOD COUNT (AUTO) 5.3 K/uL (4.8-10.8)
[2020-07-29 08:34] LABS: ALBUMIN 3.9 g/dL (3.4-5.0); ANION GAP 11.8 (8-16); CARBON DIOXIDE 25.4 mmol/L (21-32); CREATININE 0.8 mg/dL (0.6-1.3); MAGNESIUM 1.8 mg/dL (1.8-2.4); PHOSPHORUS 1.8 mg/dL (2.5-4.9); POTASSIUM 4.2 mmol/L (3.5-5.1); TOTAL BILIRUBIN 1.2 mg/dL (0.0-1.0)
== END 2020-07-29 21:36 | disposition home or self-care (01) ==
LOC: MLB 07:36
PROVIDERS: ATTEND Family Medicine
DX: I10 Essential (primary) hypertension (principal); E11.9 Type 2 diabetes mellitus without complications; E55.9 Vitamin D deficiency, unspecified
CPT/HCPCS: 36415; 80053; 82306; 83735; 84100; 85025

== ENCOUNTER 2020-10-27 07:17 | Outpatient (CLI) | payer OTHER ==
[2020-10-27 17:23] LABS: ALBUMIN 3.9 g/dL (3.4-5.0); CHOL/HDL RATIO 2.3 (1-4.5); CREATININE 0.9 mg/dL (0.6-1.3); MAGNESIUM 1.9 mg/dL (1.8-2.4); PHOSPHORUS 3.5 mg/dL (2.5-4.9); POTASSIUM 4.5 mmol/L (3.5-5.1)
[2020-10-27 17:35] LABS: ANION GAP 14.7 (8-16); CARBON DIOXIDE 24.8 mmol/L (21-32)
[2020-10-28 10:06] LABS: MICROALBUMIN, UR RANDOM 10.4 ug/mL (Not Estab.)
== END 2020-10-27 20:29 | disposition home or self-care (01) ==
LOC: MLB 07:17
PROVIDERS: ATTEND Family Medicine
DX: E11.9 Type 2 diabetes mellitus without complications (principal)
CPT/HCPCS: 36415; 80053; 82043; 83036; 83735; 84100

== ENCOUNTER 2021-02-08 07:50 | Outpatient (CLI) | payer OTHER ==
[2021-02-08 09:02] LABS: BASOPHILS % (AUTO) 0.5 % (0.0-2.0); EOSINOPHILS # (AUTO) 0.2 K/uL (0-0.4); EOSINOPHILS % (AUTO) 2.7 % (0.0-4.0); HEMATOCRIT 39.7 % (36-48); LYMPHOCYTES # (AUTO) 1.5 K/uL (2.5-16.5); LYMPHOCYTES % (AUTO) 23.3 % (20.5-51.1); MEAN CORPUSCULAR HEMOGLOBIN 29 pg (27-31); MEAN CORPUSCULAR HGB CONC 33 g/dL (33-37); MONOCYTES # (AUTO) 0.7 K/uL (0.8-1.0); MONOCYTES % (AUTO) 10.2 % (1.7-9.3); NEUTROPHILS # (AUTO) 4.1 K/uL (1.8-7.7); NEUTROPHILS % (AUTO) 63.3 % (42.2-75.2); PLATELET COUNT (AUTO) 304 K/uL (140-450); RED BLOOD CELL COUNT(AUTO) 4.42 MIL/uL (4.20-5.40); RED CELL DISTRIBUTION WIDTH 15.2 % (11.6-13.7); WHITE BLOOD COUNT (AUTO) 6.4 K/uL (4.8-10.8)
[2021-02-08 12:41] LABS: ALBUMIN 3.9 g/dL (3.4-5.0); ANION GAP 11.2 (8-16); CARBON DIOXIDE 26.3 mmol/L (21-32); CREATININE 0.9 mg/dL (0.6-1.3); POTASSIUM 4.5 mmol/L (3.5-5.1); THYROID STIMULATING HORMONE 2.03 uIU/mL (0.34-3.74); TOTAL BILIRUBIN 1.3 mg/dL (0.0-1.0)
== END 2021-02-08 21:54 | disposition home or self-care (01) ==
LOC: MLB 07:50
PROVIDERS: ATTEND Family Medicine
DX: I10 Essential (primary) hypertension (principal); E11.9 Type 2 diabetes mellitus without complications
CPT/HCPCS: 36415; 80053; 82306; 83036; 84443; 85025

== ENCOUNTER 2021-04-30 07:49 | Outpatient (CLI) | payer OTHER ==
[2021-04-30 09:06] LABS: APPEARANCE,URINE CLEAR (CLEAR); BILIRUBIN,URINE NEGATIVE (NEGATIVE); BLOOD, URINE TRACE-I (NEGATIVE); COLOR,URINE YELLOW (YELLOW); LEUKOCYTE ESTERASE ,URINE NEGATIVE (NEGATIVE); NITRITE, URINE NEGATIVE (NEGATIVE); PH,URINE 6.5 (5.0-9.0); UGLUCOSE NEGATIVE (NEGATIVE)
[2021-04-30 09:07] LABS: HEMOGLOBIN 12.5 g/dL (12.0-16.0); WHITE BLOOD COUNT (AUTO) 5.5 K/uL (4.8-10.8)
[2021-04-30 09:12] LABS: BASOPHILS % (AUTO) 0.6 % (0.0-2.0); EOSINOPHILS # (AUTO) 0.1 K/uL (0-0.4); EOSINOPHILS % (AUTO) 2.6 % (0.0-4.0); LYMPHOCYTES # (AUTO) 1.2 K/uL (2.5-16.5); LYMPHOCYTES % (AUTO) 21.4 % (20.5-51.1); MEAN CORPUSCULAR HEMOGLOBIN 30 pg (27-31); MEAN CORPUSCULAR HGB CONC 33 g/dL (33-37); MEAN CORPUSCULAR VOLUME 90.1 fL (80-94); MONOCYTES # (AUTO) 0.6 K/uL (0.8-1.0); MONOCYTES % (AUTO) 10.2 % (1.7-9.3); NEUTROPHILS # (AUTO) 3.6 K/uL (1.8-7.7); NEUTROPHILS % (AUTO) 65.2 % (42.2-75.2); PLATELET COUNT (AUTO) 302 K/uL (140-450); RED BLOOD CELL COUNT(AUTO) 4.22 MIL/uL (4.20-5.40)
[2021-04-30 09:17] LABS: ALBUMIN 3.8 g/dL (3.4-5.0); ANION GAP 15.4 (8-16); CARBON DIOXIDE 23.8 mmol/L (21-32); CREATININE 0.9 mg/dL (0.6-1.3); POTASSIUM 4.2 mmol/L (3.5-5.1); TOTAL BILIRUBIN 1.1 mg/dL (0.0-1.0)
[2021-04-30 09:23] LABS: RBC,URINE 0-5 /HPF (0-5); WBC,URINE 0-5 /HPF (0-5)
== END 2021-04-30 20:24 | disposition home or self-care (01) ==
LOC: MUS 07:49
PROVIDERS: ATTEND Family Medicine
DX: R10.9 Unspecified abdominal pain (principal); Z90.49 Acquired absence of other specified parts of digestive tract
CPT/HCPCS: 36415; 76700; 80053; 81001; 85025

== ENCOUNTER 2021-06-22 07:47 | Outpatient (CLI) | payer OTHER ==
[2021-06-22 08:27] LABS: BASOPHILS # (AUTO) 0.1 K/uL (0.00-0.22); BASOPHILS % (AUTO) 1.1 % (0.0-2.0); EOSINOPHILS # (AUTO) 0.2 K/uL (0-0.4); EOSINOPHILS % (AUTO) 2.9 % (0.0-4.0); HEMATOCRIT 39.6 % (36-48); HEMOGLOBIN 13.1 g/dL (12.0-16.0); LYMPHOCYTES # (AUTO) 1.7 K/uL (2.5-16.5); LYMPHOCYTES % (AUTO) 27.3 % (20.5-51.1); MEAN CORPUSCULAR HEMOGLOBIN 29 pg (27-31); MEAN CORPUSCULAR HGB CONC 33 g/dL (33-37); MEAN CORPUSCULAR VOLUME 88.4 fL (80-94); MONOCYTES # (AUTO) 0.6 K/uL (0.8-1.0); MONOCYTES % (AUTO) 10.3 % (1.7-9.3); NEUTROPHILS # (AUTO) 3.6 K/uL (1.8-7.7); NEUTROPHILS % (AUTO) 58.4 % (42.2-75.2); PLATELET COUNT (AUTO) 265 K/uL (140-450); RED BLOOD CELL COUNT(AUTO) 4.48 MIL/uL (4.20-5.40); RED CELL DISTRIBUTION WIDTH 15.6 % (11.6-13.7); WHITE BLOOD COUNT (AUTO) 6.2 K/uL (4.8-10.8)
[2021-06-22 09:10] LABS: ANION GAP 12.7 (8-16); CARBON DIOXIDE 25.5 mmol/L (21-32); CHOL/HDL RATIO 2.7 (1-4.5); CREATININE 0.8 mg/dL (0.6-1.3); PHOSPHORUS 4.2 mg/dL (2.5-4.9); POTASSIUM 4.2 mmol/L (3.5-5.1); THYROID STIMULATING HORMONE 1.11 uIU/mL (0.34-3.74); TOTAL BILIRUBIN 1.2 mg/dL (0.0-1.0)
[2021-06-22 11:08] LABS: MAGNESIUM 1.9 mg/dL (1.8-2.4)
[2021-06-22 13:04] LABS: URINE TOTAL PROTEIN 3.8 mg/dL (0-12)
== END 2021-06-22 17:57 | disposition home or self-care (01) ==
LOC: MLB 07:47
PROVIDERS: ATTEND Family Medicine
DX: E11.9 Type 2 diabetes mellitus without complications (principal)
CPT/HCPCS: 36415; 80053; 82043; 82272; 82570; 83036; 83735; 84100; 84443; 85025

== ENCOUNTER 2021-09-14 09:15 | Outpatient (CLI) | payer OTHER ==
[~2021-09-14 09:15] MED LIST changes: +POTA10TA70 PO; -POTA10TE30 PO
== END 2021-09-14 21:17 | disposition home or self-care (01) ==
LOC: MCA 09:15
PROVIDERS: ATTEND Internal Medicine Cardiovascular Disease
DX: I27.20 Pulmonary hypertension, unspecified (principal); I34.0 Nonrheumatic mitral (valve) insufficiency; I49.1 Atrial premature depolarization

== ENCOUNTER 2021-09-24 07:33 | Outpatient (CLI) | payer OTHER ==
[2021-09-24 08:07] LABS: BASOPHILS # (AUTO) 0.1 K/uL (0.00-0.22); BASOPHILS % (AUTO) 1.4 % (0.0-2.0); EOSINOPHILS # (AUTO) 0.2 K/uL (0-0.4); EOSINOPHILS % (AUTO) 2.8 % (0.0-4.0); HEMATOCRIT 38.6 % (36-48); HEMOGLOBIN 12.8 g/dL (12.0-16.0); LYMPHOCYTES # (AUTO) 1.5 K/uL (2.5-16.5); LYMPHOCYTES % (AUTO) 24.8 % (20.5-51.1); MEAN CORPUSCULAR HEMOGLOBIN 30 pg (27-31); MEAN CORPUSCULAR HGB CONC 33 g/dL (33-37); MONOCYTES # (AUTO) 0.5 K/uL (0.8-1.0); MONOCYTES % (AUTO) 9.1 % (1.7-9.3); NEUTROPHILS # (AUTO) 3.7 K/uL (1.8-7.7); NEUTROPHILS % (AUTO) 61.9 % (42.2-75.2); PLATELET COUNT (AUTO) 288 K/uL (140-450); RED BLOOD CELL COUNT(AUTO) 4.34 MIL/uL (4.20-5.40); RED CELL DISTRIBUTION WIDTH 15.2 % (11.6-13.7)
[2021-09-24 09:01] LABS: ALBUMIN 3.7 g/dL (3.4-5.0); ANION GAP 12.2 (8-16); CARBON DIOXIDE 23.9 mmol/L (21-32); CREATININE 0.8 mg/dL (0.6-1.3); MAGNESIUM 1.8 mg/dL (1.8-2.4); PHOSPHORUS 3.1 mg/dL (2.5-4.9); POTASSIUM 4.1 mmol/L (3.5-5.1); TOTAL BILIRUBIN 1.2 mg/dL (0.0-1.0)
== END 2021-09-24 22:43 | disposition home or self-care (01) ==
LOC: MLB 07:33
PROVIDERS: ATTEND Family Medicine
DX: E11.9 Type 2 diabetes mellitus without complications (principal)
CPT/HCPCS: 36415; 80053; 82306; 83036; 83735; 84100; 85025

== ENCOUNTER 2021-10-04 09:14 | Outpatient (CLI) | payer OTHER | END 2021-10-04 20:51 | disposition home or self-care (01) | LOC: MRD 09:14 | PROVIDERS: ATTEND Family Medicine | DX: M79.605 Pain in left leg (principal) | CPT/HCPCS: 93971 ==

== ENCOUNTER 2022-01-12 08:34 | Outpatient (CLI) | payer OTHER | END 2022-01-12 21:15 | disposition home or self-care (01) | LOC: MRD 08:34 | PROVIDERS: ATTEND Family Medicine | DX: M25.552 Pain in left hip (principal); M25.551 Pain in right hip; M25.572 Pain in left ankle and joints of left foot; M25.571 Pain in right ankle and joints of right foot | CPT/HCPCS: 73502; 73610 ==

== ENCOUNTER 2022-03-16 08:08 | Outpatient (CLI) | payer OTHER ==
[~2022-03-16 08:08] MED LIST changes: +CHOL100084 PO; +METF-1274 PO; -METF1000 PO; -VITD1000 PO
[2022-03-16 08:42] LABS: BASOPHILS # (AUTO) 0.1 K/uL (0.00-0.22); EOSINOPHILS # (AUTO) 0.2 K/uL (0-0.4); EOSINOPHILS % (AUTO) 2.5 % (0.0-4.0); HEMATOCRIT 38.7 % (36-48); HEMOGLOBIN 12.5 g/dL (12.0-16.0); LYMPHOCYTES # (AUTO) 1.7 K/uL (2.5-16.5); LYMPHOCYTES % (AUTO) 28.1 % (20.5-51.1); MEAN CORPUSCULAR HEMOGLOBIN 29 pg (27-31); MEAN CORPUSCULAR HGB CONC 32 g/dL (33-37); MEAN CORPUSCULAR VOLUME 87.9 fL (80-94); MONOCYTES # (AUTO) 0.6 K/uL (0.8-1.0); MONOCYTES % (AUTO) 9.6 % (1.7-9.3); NEUTROPHILS # (AUTO) 3.5 K/uL (1.8-7.7); NEUTROPHILS % (AUTO) 58.8 % (42.2-75.2); PLATELET COUNT (AUTO) 317 K/uL (140-450); RED CELL DISTRIBUTION WIDTH 15.7 % (11.6-13.7)
[2022-03-16 08:54] LABS: ALBUMIN 3.7 g/dL (3.4-5.0); ANION GAP 11.2 (8-16); CARBON DIOXIDE 26.2 mmol/L (21-32); CHOL/HDL RATIO 2.4 (1-4.5); CREATININE 0.8 mg/dL (0.6-1.3); PHOSPHORUS 4.2 mg/dL (2.5-4.9); POTASSIUM 4.4 mmol/L (3.5-5.1); THYROID STIMULATING HORMONE 1.31 uIU/mL (0.34-3.74); TOTAL BILIRUBIN 1.4 mg/dL (0.0-1.0)
[2022-03-16 09:19] LABS: MAGNESIUM 1.9 mg/dL (1.8-2.4)
== END 2022-03-16 14:43 | disposition home or self-care (01) ==
LOC: MLB 08:08
PROVIDERS: ATTEND Family Medicine
DX: E11.9 Type 2 diabetes mellitus without complications (principal); E55.9 Vitamin D deficiency, unspecified
CPT/HCPCS: 36415; 80053; 82306; 83036; 83735; 84100; 84443; 85025

== ENCOUNTER 2022-06-14 07:04 | Outpatient (CLI) | payer OTHER ==
[2022-06-14 11:06] LABS: ALBUMIN 3.7 g/dL (3.4-5.0); ANION GAP 14.4 (8-16); CARBON DIOXIDE 26.3 mmol/L (21-32); CHOL/HDL RATIO 2.2 (1-4.5); CREATININE 0.9 mg/dL (0.6-1.3); MAGNESIUM 1.9 mg/dL (1.8-2.4); POTASSIUM 4.7 mmol/L (3.5-5.1); THYROID STIMULATING HORMONE 0.96 uIU/mL (0.34-3.74); TOTAL BILIRUBIN 1.6 mg/dL (0.0-1.0)
[2022-06-14 11:24] LABS: BASOPHILS % (AUTO) 0.9 % (0.0-2.0); EOSINOPHILS # (AUTO) 0.1 K/uL (0-0.4); EOSINOPHILS % (AUTO) 3.1 % (0.0-4.0); HEMATOCRIT 39.1 % (36-48); HEMOGLOBIN 12.8 g/dL (12.0-16.0); LYMPHOCYTES # (AUTO) 1.4 K/uL (2.5-16.5); LYMPHOCYTES % (AUTO) 29.6 % (20.5-51.1); MEAN CORPUSCULAR HEMOGLOBIN 29 pg (27-31); MEAN CORPUSCULAR HGB CONC 33 g/dL (33-37); MEAN CORPUSCULAR VOLUME 88.9 fL (80-94); MONOCYTES # (AUTO) 0.5 K/uL (0.8-1.0); MONOCYTES % (AUTO) 10.3 % (1.7-9.3); NEUTROPHILS # (AUTO) 2.7 K/uL (1.8-7.7); NEUTROPHILS % (AUTO) 56.1 % (42.2-75.2); PLATELET COUNT (AUTO) 282 K/uL (140-450); RED CELL DISTRIBUTION WIDTH 15.8 % (11.6-13.7); WHITE BLOOD COUNT (AUTO) 4.9 K/uL (4.8-10.8)
[2022-06-15 08:08] LABS: MICROALBUMIN, UR RANDOM <3.0 ug/mL (Not Estab.)
== END 2022-06-14 19:29 | disposition home or self-care (01) ==
LOC: MLB 07:04
PROVIDERS: ATTEND Family Medicine
DX: E11.9 Type 2 diabetes mellitus without complications (principal); E55.9 Vitamin D deficiency, unspecified
CPT/HCPCS: 36415; 80053; 82043; 82306; 83036; 83735; 84443; 85025

== ENCOUNTER 2022-09-13 04:02 | Emergency (ER) | payer OTHER ==
[~2022-09-13] VITALS: Ht 157.5 cm; Wt 74.8 kg
[2022-09-13 04:18] VITALS: BP 140/58
--- NOTE | 2022-09-13 04:26 | NUR ---
SWABBED AND PLACED IN LOBBY
[2022-09-13] MEDS ORDERED: AMOX1TAB8 PO ×3 (08:27→11:03)
[2022-09-13] MEDS ORDERED: ROBAC PO ×2 (08:27→08:28)
--- NOTE | 2022-09-13 08:38 | NUR ---
Patient discharged with v/s stable. Written and verbal after care instructions ABOUT COMMUNITY ACQUIRED PNEUMONIA, ACUTE BRONCHITIS given and explained. Patient alert, oriented and verbalized understanding of instructions. Ambulatory with steady gait. All questions addressed prior to discharge. ID band removed. Patient advised to follow up with PMD. Rx of AMOX-CLAV [id number] given. Patient educated on indication of medication including possible reaction and side effects. Opportunity to ask questions provided and answered.
== END 2022-09-13 08:38 | disposition home or self-care (01) ==
LOC: MED 04:02
DX: J18.9 Pneumonia, unspecified organism (principal); Z20.822 Contact with and (suspected) exposure to COVID-19; R05.9 Cough, unspecified; E11.9 Type 2 diabetes mellitus without complications; K21.9 Gastro-esophageal reflux disease without esophagitis; I10 Essential (primary) hypertension; Z79.84 Long term (current) use of oral hypoglycemic drugs; Z79.899 Other long term (current) drug therapy
CPT/HCPCS: 71045; 99283

== ENCOUNTER 2022-11-07 10:49 | Outpatient (CLI) | payer OTHER ==
[~2022-11-07 10:49] MED LIST changes: +AMOX1TAB8 PO; +ROBAC PO
== END 2022-11-07 19:51 | disposition home or self-care (01) ==
LOC: MLB 10:49
PROVIDERS: ATTEND Internal Medicine
DX: Z12.11 Encounter for screening for malignant neoplasm of colon (principal)
CPT/HCPCS: 82272

== ENCOUNTER 2022-12-01 08:06 | Outpatient (CLI) | payer OTHER | END 2022-12-01 19:54 | disposition home or self-care (01) | LOC: MRD 08:06 | PROVIDERS: ATTEND Family Medicine | DX: M25.562 Pain in left knee (principal); R05.2 Subacute cough | CPT/HCPCS: 71046; 73562 ==

== ENCOUNTER 2022-12-21 07:36 | Outpatient (CLI) | payer OTHER ==
[2022-12-21 08:18] LABS: BASOPHILS # (AUTO) 0.1 K/uL (0.00-0.22); BASOPHILS % (AUTO) 0.9 % (0.0-2.0); EOSINOPHILS # (AUTO) 0.2 K/uL (0-0.4); EOSINOPHILS % (AUTO) 3.2 % (0.0-4.0); HEMATOCRIT 40.3 % (36-48); HEMOGLOBIN 13.2 g/dL (12.0-16.0); LYMPHOCYTES # (AUTO) 1.5 K/uL (2.5-16.5); LYMPHOCYTES % (AUTO) 24.8 % (20.5-51.1); MEAN CORPUSCULAR HEMOGLOBIN 29 pg (27-31); MEAN CORPUSCULAR HGB CONC 33 g/dL (33-37); MONOCYTES # (AUTO) 0.5 K/uL (0.8-1.0); MONOCYTES % (AUTO) 8.1 % (1.7-9.3); NEUTROPHILS # (AUTO) 3.9 K/uL (1.8-7.7); PLATELET COUNT (AUTO) 292 K/uL (140-450); RED BLOOD CELL COUNT(AUTO) 4.53 MIL/uL (4.20-5.40); WHITE BLOOD COUNT (AUTO) 6.2 K/uL (4.8-10.8)
[2022-12-21 08:52] LABS: CHOL/HDL RATIO 2.2 (1-4.5); MAGNESIUM 1.5 mg/dL (1.8-2.4); THYROID STIMULATING HORMONE 1.8 uIU/mL (0.34-3.74)
[2022-12-21 09:16] LABS: ALBUMIN 4.1 g/dL (3.4-5.0); CARBON DIOXIDE 26.5 mmol/L (21-32); POTASSIUM 4.5 mmol/L (3.5-5.1); TOTAL BILIRUBIN 1.5 mg/dL (0.0-1.0)
== END 2022-12-21 19:42 | disposition home or self-care (01) ==
LOC: MLB 07:36
PROVIDERS: ATTEND Family Medicine
DX: E11.9 Type 2 diabetes mellitus without complications (principal); I10 Essential (primary) hypertension
CPT/HCPCS: 36415; 80053; 82306; 83036; 83735; 83880; 84100; 84443; 85025

== ENCOUNTER 2023-01-27 10:10 | Outpatient (CLI) | payer OTHER | END 2023-01-27 21:00 | disposition home or self-care (01) | LOC: MCA 10:10 | PROVIDERS: ATTEND Family Medicine | DX: I37.1 Nonrheumatic pulmonary valve insufficiency (principal); I05.0 Rheumatic mitral stenosis; R00.2 Palpitations ==

== ENCOUNTER 2023-02-01 05:54 | Day surgery (SDC) | payer OTHER ==
[~2023-02-01] VITALS: Ht 157.5 cm; Wt 79.4 kg
[2023-02-01 07:16] LABS: BASOPHILS # (AUTO) 0.1 K/uL (0.00-0.22); BASOPHILS % (AUTO) 0.8 % (0.0-2.0); EOSINOPHILS # (AUTO) 0.2 K/uL (0-0.4); EOSINOPHILS % (AUTO) 3.6 % (0.0-4.0); HEMOGLOBIN 13.7 g/dL (12.0-16.0); LYMPHOCYTES # (AUTO) 1.5 K/uL (2.5-16.5); LYMPHOCYTES % (AUTO) 25.2 % (20.5-51.1); MEAN CORPUSCULAR HEMOGLOBIN 29 pg (27-31); MEAN CORPUSCULAR HGB CONC 33 g/dL (33-37); MEAN CORPUSCULAR VOLUME 88.5 fL (80-94); MONOCYTES # (AUTO) 0.6 K/uL (0.8-1.0); MONOCYTES % (AUTO) 10.4 % (1.7-9.3); NEUTROPHILS # (AUTO) 3.6 K/uL (1.8-7.7); PLATELET COUNT (AUTO) 318 K/uL (140-450); RED BLOOD CELL COUNT(AUTO) 4.74 MIL/uL (4.20-5.40); RED CELL DISTRIBUTION WIDTH 14.7 % (11.6-13.7)
[2023-02-01 07:28] LABS: ALBUMIN 3.9 g/dL (3.4-5.0); ANION GAP 10.7 (8-16); CARBON DIOXIDE 27.5 mmol/L (21-32); CREATININE 0.9 mg/dL (0.6-1.3); POTASSIUM 4.2 mmol/L (3.5-5.1); TOTAL BILIRUBIN 1.8 mg/dL (0.0-1.0)
[2023-02-01] MEDS ORDERED: SIMETHICONE 40 MG/0.6 ML ONE (11:12)
[2023-02-01] MEDS ORDERED: PROPOFOL 200 MG/20 ML VIAL IV ONE ×2 (12:03)
== END 2023-02-01 13:02 | disposition home or self-care (01) ==
LOC: MDS 05:54 → MMU 06:21 → MDS 13:02
PROVIDERS: ATTEND Internal Medicine Gastroenterology
DX: K62.5 Hemorrhage of anus and rectum (principal); K63.5 Polyp of colon; K52.9 Noninfective gastroenteritis and colitis, unspecified; I11.0 Hypertensive heart disease with heart failure; I50.9 Heart failure, unspecified; E78.5 Hyperlipidemia, unspecified; E11.9 Type 2 diabetes mellitus without complications; Z90.49 Acquired absence of other specified parts of digestive tract; Z20.822 Contact with and (suspected) exposure to COVID-19
CPT/HCPCS: 36415; 45380; 45385; 71045; 80053; 85025; 87426; 93005; J2704; Q0092

== ENCOUNTER 2023-03-24 07:51 | Outpatient (CLI) | payer OTHER ==
[2023-03-24 08:21] LABS: BASOPHILS # (AUTO) 0.1 K/uL (0.00-0.22); BASOPHILS % (AUTO) 1.2 % (0.0-2.0); EOSINOPHILS # (AUTO) 0.2 K/uL (0-0.4); EOSINOPHILS % (AUTO) 3.4 % (0.0-4.0); HEMATOCRIT 39.8 % (36-48); HEMOGLOBIN 13.1 g/dL (12.0-16.0); LYMPHOCYTES # (AUTO) 1.6 K/uL (2.5-16.5); LYMPHOCYTES % (AUTO) 25.6 % (20.5-51.1); MEAN CORPUSCULAR HEMOGLOBIN 29 pg (27-31); MEAN CORPUSCULAR HGB CONC 33 g/dL (33-37); MEAN CORPUSCULAR VOLUME 89.1 fL (80-94); MONOCYTES # (AUTO) 0.7 K/uL (0.8-1.0); MONOCYTES % (AUTO) 10.4 % (1.7-9.3); NEUTROPHILS # (AUTO) 3.7 K/uL (1.8-7.7); NEUTROPHILS % (AUTO) 59.4 % (42.2-75.2); PLATELET COUNT (AUTO) 285 K/uL (140-450); RED BLOOD CELL COUNT(AUTO) 4.47 MIL/uL (4.20-5.40); RED CELL DISTRIBUTION WIDTH 15.7 % (11.6-13.7); WHITE BLOOD COUNT (AUTO) 6.3 K/uL (4.8-10.8)
[2023-03-24 08:43] LABS: ALBUMIN 3.8 g/dL (3.4-5.0); CARBON DIOXIDE 26.6 mmol/L (21-32); CHOL/HDL RATIO 2.1 (1-4.5); CREATININE 0.9 mg/dL (0.6-1.3); MAGNESIUM 1.8 mg/dL (1.8-2.4); POTASSIUM 4.6 mmol/L (3.5-5.1); THYROID STIMULATING HORMONE 2.71 uIU/mL (0.34-3.74); TOTAL BILIRUBIN 1.5 mg/dL (0.0-1.0)
== END 2023-03-24 16:05 | disposition home or self-care (01) ==
LOC: MLB 07:51
PROVIDERS: ATTEND Family Medicine
DX: E11.9 Type 2 diabetes mellitus without complications (principal); I10 Essential (primary) hypertension
CPT/HCPCS: 36415; 80053; 82306; 83036; 83735; 84100; 84443; 85025

== ENCOUNTER 2023-04-01 18:28 | Emergency (ER) | payer OTHER ==
[~2023-04-01] VITALS: Ht 157.5 cm; Wt 77.1 kg
[2023-04-01 18:46] VITALS: BP 126/55
[2023-04-01] MEDS ORDERED: MORPHINE SULFATE 2 MG/ML SYR IVP STA (18:58)
[2023-04-01] MEDS ORDERED: ONDANSETRON 4 MG/2 ML VIAL IVP ONE (19:00)
[2023-04-01] MEDS ORDERED: DICYCLOMINE 20 MG/2 ML VIAL IM ONE ×2 (19:00→20:03)
[2023-04-01] MEDS ORDERED: NACL 0.9% 250 ML IV ONE ×2 (19:00→22:45)
--- NOTE | 2023-04-01 19:30 | NUR ---
RECEIVED PT IN BED 5 w c/o generalized abdominal pain, + L arm pain, +chills. denies injury. took pepto bismol in the morning and tylenol at 1500. pt on 1L nc baseline. pmh: htn, DM . high chol, pulmonary htn, heart failure allergies: denies
[2023-04-01 19:35] LABS: BASOPHILS # (AUTO) 0.1 K/uL (0.00-0.22); BASOPHILS % (AUTO) 0.5 % (0.0-2.0); EOSINOPHILS # (AUTO) 0.1 K/uL (0-0.4); EOSINOPHILS % (AUTO) 0.7 % (0.0-4.0); HEMATOCRIT 39.8 % (36-48); LYMPHOCYTES # (AUTO) 1.5 K/uL (2.5-16.5); LYMPHOCYTES % (AUTO) 11.3 % (20.5-51.1); MEAN CORPUSCULAR HEMOGLOBIN 29 pg (27-31); MEAN CORPUSCULAR HGB CONC 33 g/dL (33-37); MEAN CORPUSCULAR VOLUME 88.1 fL (80-94); MONOCYTES # (AUTO) 0.8 K/uL (0.8-1.0); MONOCYTES % (AUTO) 6.4 % (1.7-9.3); NEUTROPHILS # (AUTO) 10.6 K/uL (1.8-7.7); NEUTROPHILS % (AUTO) 81.1 % (42.2-75.2); PLATELET COUNT (AUTO) 295 K/uL (140-450); RED BLOOD CELL COUNT(AUTO) 4.52 MIL/uL (4.20-5.40); RED CELL DISTRIBUTION WIDTH 15.9 % (11.6-13.7); WHITE BLOOD COUNT (AUTO) 13.1 K/uL (4.8-10.8)
--- NOTE | 2023-04-01 19:43 | NUR ---
TO CT VIA [facility]
--- NOTE | 2023-04-01 19:57 | NUR ---
RETURNED FROM CT
[2023-04-01 20:01] LABS: ALBUMIN 3.8 g/dL (3.4-5.0); ANION GAP 16.1 (8-16); CARBON DIOXIDE 23.9 mmol/L (21-32); TOTAL BILIRUBIN 1.8 mg/dL (0.0-1.0)
[2023-04-01] MEDS ORDERED: MORPHINE SULFATE 2 MG/ML SYR ONE (20:01)
[2023-04-01] MEDS ORDERED: ONDANSETRON 4 MG/2 ML VIAL ONE (20:03)
--- NOTE | 2023-04-01 21:00 | NUR ---
AWAKE AMBULATED TO BR WITH STEADY GAIT, BACKTO BED AND URINE TAKEN TO LAB.
[2023-04-01] MEDS ORDERED: LEVOFLOXACIN 750 MG/D5W PREMIX 150 ML IV ONE (21:05)
--- NOTE | 2023-04-01 22:00 | NUR ---
RESTING COMFORTABLY WITH DAUGHTER AT BEDSIDE
--- NOTE | 2023-04-02 | NUR ---
DAUGHTER AND PT VOICING CONCERN REGARDING EXAM RESULTS. UPDATE GIVEN.
[2023-04-02 00:46] LABS: APPEARANCE,URINE CLEAR (CLEAR); BILIRUBIN,URINE NEGATIVE (NEGATIVE); BLOOD, URINE NEGATIVE (NEGATIVE); COLOR,URINE YELLOW (YELLOW); LEUKOCYTE ESTERASE ,URINE NEGATIVE (NEGATIVE); NITRITE, URINE NEGATIVE (NEGATIVE); UGLUCOSE NEGATIVE (NEGATIVE)
--- NOTE | 2023-04-02 01:46 | NUR ---
RESTING QUIETLY AT THIS TIME. CT RESULTS STILL PENDING.
[2023-04-02] MEDS ORDERED: METR-435 PO (03:02)
[2023-04-02] MEDS ORDERED: BEN10 PO (03:02)
[2023-04-02] MEDS ORDERED: metroNIDAZOLE 250 MG TAB PO ONE (03:05)
[2023-04-02] MEDS ORDERED: metroNIDAZOLE 500 MG TAB ONE (03:09)
[2023-04-02 03:10] VITALS: BP 95/34
--- NOTE | 2023-04-02 03:10 | NUR ---
Patient discharged with v/s stable. Written and verbal after care instructions given and explained. Patient alert, oriented and verbalized understanding of instructions. Ambulatory with steady gait. All questions addressed prior to discharge. ID band removed. Patient advised to follow up with PMD. Rx of BENTYL, METRONIDAZOLE given. Patient educated on indication of medication including possible reaction and side effects. Opportunity to ask questions provided and answered.
== END 2023-04-02 03:10 | disposition home or self-care (01) ==
LOC: MED 18:28
DX: K52.9 Noninfective gastroenteritis and colitis, unspecified (principal); E11.9 Type 2 diabetes mellitus without complications; K21.9 Gastro-esophageal reflux disease without esophagitis; I10 Essential (primary) hypertension; Z79.899 Other long term (current) drug therapy; Z79.84 Long term (current) use of oral hypoglycemic drugs; Z90.49 Acquired absence of other specified parts of digestive tract
CPT/HCPCS: 36415; 74176; 80053; 81003; 83605; 83690; 85025; 87040; 87086; 96361; 96365; 96372; 96375; 99285; J0500; J1956; J2270; J2405; J7030

== ENCOUNTER 2023-05-31 07:13 | Day surgery (SDC) | payer OTHER ==
[2023-05-29 07:41] LABS: BASOPHILS # (AUTO) 0.1 K/uL (0.00-0.22); BASOPHILS % (AUTO) 0.9 % (0.0-2.0); EOSINOPHILS # (AUTO) 0.2 K/uL (0-0.4); EOSINOPHILS % (AUTO) 3.6 % (0.0-4.0); HEMATOCRIT 41.1 % (36-48); HEMOGLOBIN 13.4 g/dL (12.0-16.0); LYMPHOCYTES # (AUTO) 1.8 K/uL (2.5-16.5); MEAN CORPUSCULAR HEMOGLOBIN 29 pg (27-31); MEAN CORPUSCULAR HGB CONC 33 g/dL (33-37); MEAN CORPUSCULAR VOLUME 87.8 fL (80-94); MONOCYTES # (AUTO) 0.6 K/uL (0.8-1.0); MONOCYTES % (AUTO) 9.7 % (1.7-9.3); NEUTROPHILS # (AUTO) 3.6 K/uL (1.8-7.7); NEUTROPHILS % (AUTO) 56.8 % (42.2-75.2); PLATELET COUNT (AUTO) 261 K/uL (140-450); RED BLOOD CELL COUNT(AUTO) 4.68 MIL/uL (4.20-5.40); RED CELL DISTRIBUTION WIDTH 16.2 % (11.6-13.7); WHITE BLOOD COUNT (AUTO) 6.4 K/uL (4.8-10.8)
[2023-05-29 07:54] LABS: ALBUMIN 3.7 g/dL (3.4-5.0); ANION GAP 10.4 (8-16); CARBON DIOXIDE 26.8 mmol/L (21-32); POTASSIUM 4.2 mmol/L (3.5-5.1); TOTAL BILIRUBIN 1.8 mg/dL (0.0-1.0); TOTAL PROTEIN, SERUM 6.9 g/dL (6.4-8.2)
[~2023-05-31 07:13] MED LIST changes: +BEN10 PO; +METR-435 PO
[2023-05-31] MEDS ORDERED: PROPOFOL 200 MG/20 ML VIAL IV ONE ×2 (08:00→09:12)
[2023-05-31] MEDS ORDERED: LABETALOL 20 MG/4 ML VIAL IVP PRN (09:25)
[2023-05-31] MEDS ORDERED: NACL 0.9% 1,000 ML IV SCH (09:25)
[2023-05-31] MEDS ORDERED: hydrALAZINE 20 MG/ML VIAL IVP PRN (09:25)
== END 2023-05-31 10:45 | disposition home or self-care (01) ==
LOC: MMU 07:13 → MOR 07:13
PROVIDERS: ATTEND Internal Medicine Gastroenterology
DX: K62.5 Hemorrhage of anus and rectum (principal); K63.5 Polyp of colon; Z86.010 Personal history of colon polyps; K21.9 Gastro-esophageal reflux disease without esophagitis; E11.9 Type 2 diabetes mellitus without complications; K58.9 Irritable bowel syndrome, unspecified; I50.9 Heart failure, unspecified; I11.0 Hypertensive heart disease with heart failure; Z90.49 Acquired absence of other specified parts of digestive tract; Z79.899 Other long term (current) drug therapy
CPT/HCPCS: 36415; 45380; 45385; 71045; 80053; 85025; 88305; 93005; J2704

== ENCOUNTER 2023-07-17 09:23 | Outpatient (CLI) | payer OTHER | END 2023-07-17 20:00 | disposition home or self-care (01) | LOC: MRD 09:23 | PROVIDERS: ATTEND Family Medicine | DX: M17.0 Bilateral primary osteoarthritis of knee (principal); M11.261 Other chondrocalcinosis, right knee; M11.262 Other chondrocalcinosis, left knee; M76.892 Other specified enthesopathies of left lower limb, excluding foot; M76.891 Other specified enthesopathies of right lower limb, excluding foot; M85.862 Other specified disorders of bone density and structure, left lower leg; M85.861 Other specified disorders of bone density and structure, right lower leg; M25.762 Osteophyte, left knee; M25.761 Osteophyte, right knee; M25.562 Pain in left knee; M25.561 Pain in right knee | CPT/HCPCS: 73562 ==

== ENCOUNTER 2023-09-18 07:45 | Outpatient (CLI) | payer OTHER ==
[2023-09-18 08:22] LABS: BASOPHILS % (AUTO) 0.7 % (0.0-2.0); EOSINOPHILS # (AUTO) 0.2 K/uL (0-0.4); EOSINOPHILS % (AUTO) 2.9 % (0.0-4.0); HEMOGLOBIN 13.6 g/dL (12.0-16.0); LYMPHOCYTES # (AUTO) 1.6 K/uL (2.5-16.5); MEAN CORPUSCULAR HEMOGLOBIN 29 pg (27-31); MEAN CORPUSCULAR HGB CONC 33 g/dL (33-37); MEAN CORPUSCULAR VOLUME 88.5 fL (80-94); MONOCYTES # (AUTO) 0.6 K/uL (0.8-1.0); MONOCYTES % (AUTO) 9.3 % (1.7-9.3); NEUTROPHILS # (AUTO) 4.4 K/uL (1.8-7.7); NEUTROPHILS % (AUTO) 64.1 % (42.2-75.2); PLATELET COUNT (AUTO) 280 K/uL (140-450); RED BLOOD CELL COUNT(AUTO) 4.75 MIL/uL (4.20-5.40); RED CELL DISTRIBUTION WIDTH 16.4 % (11.6-13.7); WHITE BLOOD COUNT (AUTO) 6.9 K/uL (4.8-10.8)
[2023-09-18 09:34] LABS: ANION GAP 13.3 (8-16); CALCIUM 9.2 mg/dL (8.5-10.1); CARBON DIOXIDE 25.2 mmol/L (21-32); CHOL/HDL RATIO 2.3 (1-4.5); CREATININE 0.9 mg/dL (0.6-1.3); MAGNESIUM 1.8 mg/dL (1.8-2.4); POTASSIUM 4.5 mmol/L (3.5-5.1); THYROID STIMULATING HORMONE 1.6 uIU/mL (0.34-3.74); TOTAL BILIRUBIN 1.7 mg/dL (0.0-1.0); TOTAL PROTEIN, SERUM 6.8 g/dL (6.4-8.2)
[2023-09-19 08:08] LABS: VITAMIN D, 25-HYDROXY 58.5 ng/mL (30.0-100.0)
== END 2023-09-18 16:33 | disposition home or self-care (01) ==
LOC: MLB 07:45
PROVIDERS: ATTEND Family Medicine
DX: E11.9 Type 2 diabetes mellitus without complications (principal); I10 Essential (primary) hypertension; E78.2 Mixed hyperlipidemia
CPT/HCPCS: 36415; 80053; 82043; 82306; 83036; 83735; 84443; 85025

== ENCOUNTER 2023-10-02 13:51 | Emergency (ER) | payer OTHER ==
[~2023-10-02] VITALS: Ht 157.5 cm; Wt 72.6 kg
[2023-10-02 14:20] VITALS: BP 116/42; PULSE 101; RESP 20; TEMP 99; O2SAT 93
[2023-10-02] MEDS ORDERED: BENZ200C4 PO (17:28)
[2023-10-02 17:41] VITALS: BP 116/42; PULSE 89; RESP 20; TEMP 99; O2SAT 93
[2023-10-02 18:44] LABS: FLU A ANTIGEN negative (NEGATIVE); FLU B ANTIGEN NEGATIVE (NEGATIVE)
== END 2023-10-02 17:41 | disposition home or self-care (01) ==
LOC: MED 13:51
DX: B34.9 Viral infection, unspecified (principal); Z20.822 Contact with and (suspected) exposure to COVID-19; E11.9 Type 2 diabetes mellitus without complications; I10 Essential (primary) hypertension; K21.9 Gastro-esophageal reflux disease without esophagitis; Z79.4 Long term (current) use of insulin; Z79.899 Other long term (current) drug therapy; Z90.49 Acquired absence of other specified parts of digestive tract
CPT/HCPCS: 71045; 99284

== ENCOUNTER 2023-10-27 10:23 | Outpatient (CLI) | payer OTHER ==
[~2023-10-27 10:23] MED LIST changes: +BENZ200C4 PO
== END 2023-10-27 21:58 | disposition home or self-care (01) ==
LOC: MDS 10:23
PROVIDERS: ATTEND Family Medicine
DX: J98.4 Other disorders of lung (principal); I70.0 Atherosclerosis of aorta; R05.9 Cough, unspecified
CPT/HCPCS: 71046

== ENCOUNTER 2024-01-02 08:07 | Outpatient (CLI) | payer OTHER | END 2024-01-02 20:15 | disposition home or self-care (01) | LOC: MLB 08:07 → MCA 20:15 | PROVIDERS: ATTEND Internal Medicine Cardiovascular Disease | DX: I08.0 Rheumatic disorders of both mitral and aortic valves (principal); I27.20 Pulmonary hypertension, unspecified ==

== ENCOUNTER 2024-01-09 08:07 | Outpatient (CLI) | payer OTHER ==
[2024-01-09 09:00] LABS: ALBUMIN 3.9 g/dL (3.4-5.0); ANION GAP 12.4 (8-16); CALCIUM 9.4 mg/dL (8.5-10.1); CARBON DIOXIDE 27.1 mmol/L (21-32); CREATININE 0.9 mg/dL (0.6-1.3); MAGNESIUM 1.9 mg/dL (1.8-2.4); PHOSPHORUS 3.5 mg/dL (2.5-4.9); POTASSIUM 4.5 mmol/L (3.5-5.1); TOTAL PROTEIN, SERUM 6.8 g/dL (6.4-8.2)
== END 2024-01-09 20:09 | disposition home or self-care (01) ==
LOC: MLB 08:07
PROVIDERS: ATTEND Family Medicine
DX: E11.9 Type 2 diabetes mellitus without complications (principal)
CPT/HCPCS: 36415; 80053; 83036; 83735; 84100

== ENCOUNTER 2024-02-06 09:53 | Outpatient (CLI) | payer OTHER ==
[~2024-02-06 09:53] MED LIST changes: +CLON-1201 PO; -CLON0.5T PO
== END 2024-02-06 20:11 | disposition home or self-care (01) ==
LOC: MRD 09:53
PROVIDERS: ATTEND Family Medicine
DX: M85.88 Other specified disorders of bone density and structure, other site (principal); M79.675 Pain in left toe(s)
CPT/HCPCS: 73660

== ENCOUNTER 2024-03-16 22:45 | Emergency (ER) | payer OTHER ==
[~2024-03-16] VITALS: Ht 157.5 cm; Wt 79.4 kg
[2024-03-16 22:49] VITALS: BP 151/56; PULSE 62; TEMP 97.4; O2SAT 16
[2024-03-17 01:16] VITALS: O2SAT 16
[2024-03-17 01:37] LABS: BASOPHILS # (AUTO) 0.1 K/uL (0.00-0.22); BASOPHILS % (AUTO) 0.9 % (0.0-2.0); EOSINOPHILS # (AUTO) 0.1 K/uL (0-0.4); HEMATOCRIT 42.4 % (36-48); HEMOGLOBIN 13.7 g/dL (12.0-16.0); LYMPHOCYTES # (AUTO) 2.1 K/uL (2.5-16.5); LYMPHOCYTES % (AUTO) 28.4 % (20.5-51.1); MEAN CORPUSCULAR HEMOGLOBIN 29 pg (27-31); MEAN CORPUSCULAR HGB CONC 32 g/dL (33-37); MEAN CORPUSCULAR VOLUME 90.4 fL (80-94); MONOCYTES # (AUTO) 0.7 K/uL (0.8-1.0); MONOCYTES % (AUTO) 8.8 % (1.7-9.3); NEUTROPHILS # (AUTO) 4.4 K/uL (1.8-7.7); NEUTROPHILS % (AUTO) 59.9 % (42.2-75.2); PLATELET COUNT (AUTO) 301 K/uL (140-450); RED BLOOD CELL COUNT(AUTO) 4.69 MIL/uL (4.20-5.40); RED CELL DISTRIBUTION WIDTH 15.7 % (11.6-13.7); WHITE BLOOD COUNT (AUTO) 7.4 K/uL (4.8-10.8)
[2024-03-17 01:40] VITALS: TEMP 97.4
[2024-03-17 01:48] LABS: ANION GAP 13.8 (8-16); CALCIUM 9.8 mg/dL (8.5-10.1); CARBON DIOXIDE 28.7 mmol/L (21-32); CREATININE 0.9 mg/dL (0.6-1.3); POTASSIUM 4.5 mmol/L (3.5-5.1)
[2024-03-17 02:40] VITALS: BP 124/48; PULSE 68; RESP 14; O2SAT 99
== END 2024-03-17 02:45 | disposition home or self-care (01) ==
LOC: MED 22:45
DX: R00.2 Palpitations (principal); J96.10 Chronic respiratory failure, unspecified whether with hypoxia or hypercapnia; I27.20 Pulmonary hypertension, unspecified; E11.9 Type 2 diabetes mellitus without complications; K21.9 Gastro-esophageal reflux disease without esophagitis; I10 Essential (primary) hypertension; I25.2 Old myocardial infarction; Z79.899 Other long term (current) drug therapy
CPT/HCPCS: 36415; 71045; 80048; 84484; 85025; 99284

== ENCOUNTER 2024-05-02 10:52 | Emergency (ER) | payer OTHER ==
[~2024-05-02] VITALS: Ht 157.5 cm; Wt 77.1 kg
[2024-05-02 11:05] VITALS: BP 153/56; PULSE 83; RESP 20; TEMP 97.8; O2SAT 91
[2024-05-02 11:15] VITALS: O2SAT 91
[2024-05-02 11:45] LABS: BASOPHILS # (AUTO) 0.1 K/uL (0.00-0.22); EOSINOPHILS # (AUTO) 0.2 K/uL (0-0.4); EOSINOPHILS % (AUTO) 2.3 % (0.0-4.0); HEMATOCRIT 40.2 % (36-48); HEMOGLOBIN 13.1 g/dL (12.0-16.0); LYMPHOCYTES # (AUTO) 1.5 K/uL (2.5-16.5); MEAN CORPUSCULAR HEMOGLOBIN 30 pg (27-31); MEAN CORPUSCULAR HGB CONC 33 g/dL (33-37); MEAN CORPUSCULAR VOLUME 90.4 fL (80-94); MONOCYTES # (AUTO) 0.5 K/uL (0.8-1.0); MONOCYTES % (AUTO) 8.3 % (1.7-9.3); NEUTROPHILS # (AUTO) 4.3 K/uL (1.8-7.7); NEUTROPHILS % (AUTO) 65.4 % (42.2-75.2); PLATELET COUNT (AUTO) 293 K/uL (140-450); RED BLOOD CELL COUNT(AUTO) 4.45 MIL/uL (4.20-5.40); WHITE BLOOD COUNT (AUTO) 6.6 K/uL (4.8-10.8)
[2024-05-02 12:20] LABS: ANION GAP 13.6 (8-16); CREATININE 0.8 mg/dL (0.6-1.3); POTASSIUM 4.6 mmol/L (3.5-5.1)
[2024-05-02 12:34] LABS: MAGNESIUM 1.7 mg/dL (1.8-2.4); PHOSPHORUS 4.3 mg/dL (2.5-4.9); THYROID STIMULATING HORMONE 1.41 uIU/mL (0.34-3.74)
== END 2024-05-02 12:44 | disposition home or self-care (01) ==
LOC: MED 10:52
DX: E83.42 Hypomagnesemia (principal); M79.602 Pain in left arm; R00.2 Palpitations; R03.0 Elevated blood-pressure reading, without diagnosis of hypertension; E11.9 Type 2 diabetes mellitus without complications; K21.9 Gastro-esophageal reflux disease without esophagitis; I10 Essential (primary) hypertension; E78.5 Hyperlipidemia, unspecified; Z79.84 Long term (current) use of oral hypoglycemic drugs; Z79.899 Other long term (current) drug therapy; Z79.2 Long term (current) use of antibiotics
CPT/HCPCS: 36415; 80048; 83735; 84100; 84443; 84484; 85025; 93005; 99284

== ENCOUNTER 2024-05-24 07:51 | Outpatient (CLI) | payer OTHER ==
[2024-05-24 08:38] LABS: BASOPHILS # (AUTO) 0.1 K/uL (0.00-0.22); BASOPHILS % (AUTO) 1.2 % (0.0-2.0); EOSINOPHILS # (AUTO) 0.1 K/uL (0-0.4); EOSINOPHILS % (AUTO) 2.3 % (0.0-4.0); HEMATOCRIT 41.2 % (36-48); HEMOGLOBIN 13.5 g/dL (12.0-16.0); LYMPHOCYTES # (AUTO) 1.5 K/uL (2.5-16.5); LYMPHOCYTES % (AUTO) 26.2 % (20.5-51.1); MEAN CORPUSCULAR HEMOGLOBIN 30 pg (27-31); MEAN CORPUSCULAR HGB CONC 33 g/dL (33-37); MEAN CORPUSCULAR VOLUME 90.6 fL (80-94); MONOCYTES # (AUTO) 0.6 K/uL (0.8-1.0); MONOCYTES % (AUTO) 9.8 % (1.7-9.3); NEUTROPHILS # (AUTO) 3.5 K/uL (1.8-7.7); NEUTROPHILS % (AUTO) 60.5 % (42.2-75.2); PLATELET COUNT (AUTO) 302 K/uL (140-450); RED BLOOD CELL COUNT(AUTO) 4.54 MIL/uL (4.20-5.40); RED CELL DISTRIBUTION WIDTH 16.3 % (11.6-13.7); WHITE BLOOD COUNT (AUTO) 5.9 K/uL (4.8-10.8)
[2024-05-24 09:05] LABS: ALBUMIN 3.8 g/dL (3.4-5.0); ANION GAP 10.8 (8-16); CARBON DIOXIDE 25.9 mmol/L (21-32); POTASSIUM 4.7 mmol/L (3.5-5.1); THYROID STIMULATING HORMONE 1.95 uIU/mL (0.34-3.74); TOTAL BILIRUBIN 2.2 mg/dL (0.0-1.0)
== END 2024-05-24 15:48 | disposition home or self-care (01) ==
LOC: MLB 07:51
PROVIDERS: ATTEND Family Medicine
DX: E11.9 Type 2 diabetes mellitus without complications (principal)
CPT/HCPCS: 36415; 80053; 83036; 84443; 85025